=== PATIENT | female | born 1970 | race Caucasian/White ===

== ENCOUNTER 2019-07-10 10:47 | Observation (INO) ==
[2019-07-10 11:29] LABS: Basophils # (auto) 0.03 K/uL (0-0.2); Basophils % (auto) 0.6 %; Eosinophils # (auto) 0.15 K/uL (0-0.5); Eosinophils % (auto) 2.8 %; Hematocrit (blood only) 34.6 % (37-47); Hemoglobin 11.5 g/dL (12.0-16.0); Immature Granulocytes # (auto) 0.01 K/uL (0.00-0.02); Immature Granulocytes % (auto) 0.2 %; Lymphocytes # (auto) 2.17 K/uL (1.2-3.4); Lymphocytes % (auto) 41.2 %; Mean Corpuscular Hgb Conc 33.2 g/dL (32-36); Mean Corpuscular Volume 93.3 fL (80-100); Mean Platelet Volume 9.4 fL (7.4-10.4); Monocytes # (auto) 0.36 K/uL (0.11-0.59); Monocytes % (auto) 6.8 %; Neutrophils # (auto) 2.55 K/uL (1.4-6.5); Neutrophils % (auto) 48.4 %; Platelet Count 302 K/uL (130-400); RDW Standard Deviation 44.4 fL (36.4-46.3); Red Blood Count 3.71 M/uL (4.2-5.4); White Blood Count 5.27 K/uL (4.8-10.8)
[2019-07-10 11:31] LABS: Appearance Urine Clear (Clear); Bilirubin Urine Negative (Negative); Blood Urine Negative (Negative); Color Urine Yellow; Glucose Urine UA Negative (Negative); Ketones Urine Negative (Negative); Leukocyte Esterase Urine Negative (Negative); Nitrite Urine Negative (Negative); Protein Urine Negative (Negative); Specific Gravity Urine 1.008 (1.000-1.030); Urobilinogen Urine Negative (Negative)
--- NOTE | 2019-07-10 11:43 | XRay Report ---
XR chest 1V portable CLINICAL HISTORY: 49 years-old Female presenting with weakness. TECHNIQUE: Portable upright AP view of the chest was obtained. COMPARISON: 12/25/2018. FINDINGS: Cardiomediastinal silhouette normal. No focal opacity. No large effusion or pneumothorax. Osseous str uctures normal. Upper abdomen normal. IMPRESSION: 1. No acute cardiopulmonary disease. Electronically signed by: Erasmo Blevins M.D. 07/10/2019 11:42 AM
[2019-07-10 11:52] LABS: Albumin Level 3.7 gm/dl (3.4-5.0); BUN Creatinine Ratio 13.6 (10-20); Calcium 8.6 mg/dl (8.5-10.1); Creatinine Clr Calc Pharmacy 65.9 ml/min; Est GFR (African American) 74.4; Est GFR (Non-African American) 64.2; Potassium 3.6 mmol/L (3.5-5.1)
[2019-07-10 12:02] LABS: Albumin Globulin Ratio 1.1 (0.9-2); Bilirubin,Total 0.4 mg/dl (0.2-1); Globulin 3.4 gm/dl (2.5-4.0); Thyroid Stimulating Hormone 3.19 uIu/ml (0.300-4.500); Total Protein 7.1 gm/dl (6.4-8.2)
[2019-07-10] MEDS ORDERED: SUMAtriptan succinate 100 MG TAB PO STA (12:13)
--- NOTE | 2019-07-10 12:37 | Emergency Department Note ---
Entered by Domingo Rascon acting as a scribe for History of Present Illness General Chief complaint: Syncope Time Seen by Provider: 07/10/19 10:52 Source: patient History of Present Illness Provider complaint: Syncope Onset (ago): hour(s) (This morning) Location: head Pain Consistency: + other (Episodic) Associated symptoms: no chest pain and no shortness of breath The patient is a 49 year old female who presents to the Emergency Room after having a syncopal episode this morning while at her doctor's office. The patient reports that she was getting her blood pressure taken by the nurse when she felt tingling down her arm and syncopized. The patient does not remember the incident. The patient states she has taken all of her medications today but she has not eaten anything. Per the nurse, the patient's BSG upon EMS arrival was 54 but after IV Dextrose it elevated to 104. The patient adds that yesterday she was here after being sent for stroke like symptoms. While here the patient had an MRI done that was normal. The patient denies any new medications and states she has never had issues like this before. Home Medications Home Medications Medication Instructions Recorded Confirmed Type One-A-Day Women's 50 Plus 1 tab PO HS 12/25/18 07/10/19 History albuterol sulfate 2 puff INHALATION QID PRN 12/25/18 07/10/19 History bupropion HCl [Wellbutrin SR] 200 mg PO QAM 12/25/18 07/10/19 History cholecalciferol (vitamin D3) 1,000 unit PO HS 12/25/18 07/10/19 History [Vitamin D3] cyclobenzaprine 10 mg PO HS 12/25/18 07/10/19 History fluoxetine 10 mg PO QPM 12/25/18 07/10/19 History fluticasone propion-salmeterol 1 inh INHALATION QAM 12/25/18 07/10/19 History [Advair Diskus] hydrocodone-acetaminophen 1 tab PO DAILY PRN 12/25/18 07/10/19 History magnesium citrate 120 ml PO DAILY PRN 12/25/18 07/10/19 History polyethylene glycol 3350 17 g PO DAILY PRN 12/25/18 07/10/19 History potassium chloride 10 meq PO BID 12/25/18 07/10/19 History riboflavin (vitamin B2) 400 mg PO QAM 12/25/18 07/10/19 History sennosides [Senna Lax] 2 tab PO HS 12/25/18 07/10/19 History sumatriptan succinate [Imitrex] 100 mg PO DAILY PRN MDD 200 mg 12/25/18 07/10/19 History topiramate [Topamax] 150 mg PO QAM 12/25/18 07/10/19 History umeclidinium 1 inh INHALATION QAM 12/25/18 07/10/19 History zolpidem 10 mg PO HS 12/25/18 07/10/19 History Linzess 290 mcg PO DAILY 07/10/19 07/10/19 History famotidine 20 mg PO DAILY 07/10/19 07/10/19 History lorazepam 1 mg PO Q6H PRN 07/10/19 07/10/19 History omeprazole 40 mg PO DAILY 07/10/19 07/10/19 History topiramate [Topamax] 200 mg PO HS 07/10/19 07/10/19 History aspirin [Ecotrin Low Strength] 81 mg PO DAILY #30 tab 07/12/19 Rx gabapentin 300 mg PO TID #90 cap 07/12/19 Rx Allergies Allergy/AdvReac Type Severity Reaction Status Date / Time nicotine Allergy Mild NICOTINE Verified 07/10/19 11:33 PATCH-RASH AND EDEMA honey Allergy Unknown RAW Verified 07/10/19 11:33 HONEY-THROAT SWELLING, SOB meperidine Allergy Unknown THROAT Verified 07/10/19 11:33 SWELLED, SOB Past Med/Surg History Medical History COPD with asthma Generalized anxiety disorder (Chronic) IBS (irritable bowel syndrome) (Chronic) Lumbar stenosis with neurogenic claudication (09/02/14) Migraines (Chronic) Surgical History H/O laminectomy H/O oophorectomy History of cholecystectomy (Resolved) History of hysterectomy (Resolved) History of tubal ligation (Resolved) Family History (Updated 07/10/19 @ 15:35 by LEONIDES Alcala) Sister Stroke Social History (Updated 07/10/19 @ 15:36 by LEONIDES Alcala) Preferred Language: Tajik Communication Ability: Effective Water Conservation Specialist Required: No Beliefs That Will Affect Care: None Current Living Situation: Spouse Other Information That Helps Us Care for You: No Feels Safe at Home: Yes Safety Concerns: Feels Safe At This Time Smoking Status: Former smoker Do You Dip or Chew Tobacco: No ; Smoking End Date: 2009 ; Second Hand Exposure: No ; Tobacco Cessation Education Requested by Patient: No Hx Alcohol Use: Yes Alcohol type: wine Alcohol Intake Frequency: Rarely Hx Substance Use: No Review of Systems See HPI for pertinent positives & negatives. and A total of 10 systems reviewed and were otherwise negative Physical Exam Vital Signs Vital Signs - 24 hr 07/10/19 10:50 07/10/19 12:45 07/10/19 13:35 Temperature 36.5 C Temperature Source Oral Pulse Rate 56 L Pulse Rate [Apical] 64 64 Respiratory Rate 18 16 16 Blood Pressure 118/82 Blood Pressure [Right Arm] 102/75 117/79 Blood Pressure Mean 94 Blood Pressure Mean [Right Arm] 84 91 Blood Pressure Position Sitting Pulse Oximetry 94 Oxygen Delivery Method Room Air Sepsis Recent Fever Within 48 Hours No Sepsis New/Unexplained Change in Mental Status No Sepsis Action Taken by Nursing No Action Required GENERAL: Awake, alert, pale-appearing, in no distress HENT: Normocephalic, atraumatic. Oropharynx unremarkable. EYES: Normal conjunctiva. Sclera non-icteric. NECK: Supple. No nuchal rigidity. FROM. No masses. RESPIRATORY: Clear to auscultation. No wheezes. No rales. Normal respiratory effort. CARDIAC: Normal rate. Normal rhythm. No murmurs. No rubs. Extremities warm and well perfused. Pulses equal. No JVD. GI: Soft, non-distended. No tenderness to palpation. No rebound or guarding. No masses. RECTAL: Deferred. MUSCULOSKELETAL: Atraumatic. Chest examination reveals no tenderness. The back is symmetrical on inspection without obvious abnormality. There is no CVA tenderness to palpation. No joint edema. LOWER EXTREMITIES: Calves are equal size bilaterally and non-tender. No edema. No discoloration. NEURO: Normal sensorium. No sensory or motor deficits noted. Course Course 1055: Past medical records reviewed. The patient was evaluated in room C03, and a complete history and physical examination were performed. 1248: I reevaluated the patient and she is resting in bed. I had a long discussion with the patient and family about results and the treatment plan. The patient and family would both feel more comfortable staying in the hospital. 1251: I discussed the patient's case with Denise CHINCHILLA who is working under Dr. Gilbert Sparks. They are going to accept the patient for further evaluation. Consultations Consultation #1: I discussed the patient's case with Denise CHINCHILLA who is working under Dr. Gilbert Sparks. They are going to accept the patient for further evaluation. Time: 12:51 Administered Medications Discontinued Medications Aspirin (Ecotrin Ectab) 81 mg PO QAM PENDING SALE TO [facility] Stop: 08/10/19 16:14 Last Admin: 07/12/19 08:06 Dose: 81 mg Documented by: [id number] Admin: 07/11/19 18:19 Dose: 81 mg Documented by: [id number] Bupropion HCl ([facility]-Sr) [facility] Stop: 08/10/19 08:59 Last Admin: 07/12/19 08:05 Dose: 200 mg Documented by: [id number] Admin: 07/11/19 09:30 Dose: 200 mg Documented by: [id number] Cyclobenzaprine HCl (Flexeril) 10 mg PO HS JERMAINE Stop: 08/09/19 20:59 Last Admin: 07/11/19 20:56 Dose: 10 mg Documented by: [id number] Admin: 07/10/19 20:27 Dose: 10 mg Documented by: [id number] Famotidine (Pepcid) 20 mg PO DAILY JERMAINE Stop: 08/10/19 08:59 Last Admin: 07/12/19 08:03 Dose: Not Given Documented by: [id number] Admin: 07/11/19 09:29 Dose: 20 mg Documented by: [id number] Fluoxetine HCl (Prozac) 10 mg PO HS JERMAINE Stop: 08/09/19 20:59 Last Admin: 07/11/19 20:58 Dose: 10 mg Documented by: [id number] Admin: 07/10/19 21:41 Dose: 10 mg Documented by: [id number] Gabapentin (Neurontin) 300 mg PO HS JERMAINE Stop: 08/09/19 20:59 Last Admin: 07/11/19 20:58 Dose: 300 mg Documented by: [id number] Admin: 07/10/19 20:27 Dose: 300 mg Documented by: [id number] Gabapentin (Neurontin) 100 mg PO BID17 JERMAINE Stop: 08/09/19 16:59 Last Admin: 07/12/19 08:05 Dose: 100 mg Documented by: [id number] Admin: 07/11/19 18:20 Dose: 100 mg Documented by: [id number] Admin: 07/11/19 09:27 Dose: 100 mg Documented by: [id number] Admin: 07/10/19 17:35 Dose: 100 mg Documented by: [id number] Dextrose (D5w) 1,000 mls @ 80 mls/hr IV .[id number] JERMAINE Stop: 08/09/19 16:14 Last Infusion: 07/11/19 08:48 Dose: 0 mls/hr Documented by: [id number] Infusion: 07/10/19 18:16 Dose: 0 mls/hr Documented by: [id number] Admin: 07/10/19 16:46 Dose: 80 mls/hr Documented by: [id number] Dextrose/Sodium Chloride (D5w And Nss) 1,000 mls @ 80 mls/hr IV .[id number] JERMAINE Stop: 07/11/19 20:59 Last Infusion: 07/11/19 09:14 Dose: 0 mls/hr Documented by: [id number] Admin: 07/11/19 08:57 Dose: 80 mls/hr Documented by: [id number] Infusion: 07/11/19 08:45 Dose: 0 mls/hr Documented by: [id number] Admin: 07/10/19 20:27 Dose: 80 mls/hr Documented by: [id number] Ioversol (Optiray 320 125ml) 119 ml IV ONCE PRN PRN Reason: Interaction Checking Stop: 07/15/19 20:46 Last Admin: 07/11/19 20:47 Dose: 119 ml Documented by: [id number] Miscellaneous (Order Awaiting Action) 1 ea N/A QS JERMAINE Stop: 08/09/19 15:59 Last Admin: 07/12/19 10:02 Dose: Not Given Documented by: [id number] Admin: 07/12/19 07:18 Dose: Not Given Documented by: [id number] Admin: 07/11/19 23:11 Dose: Not Given Documented by: [id number] Admin: 07/11/19 17:13 Dose: Not Given Documented by: [id number] Admin: 07/11/19 08:49 Dose: Not Given Documented by: [id number] Admin: 07/11/19 01:14 Dose: Not Given Documented by: [id number] Admin: 07/10/19 17:06 Dose: Not Given Documented by: [id number] Miscellaneous (Order Awaiting Action) 1 ea N/A QS JERMAINE Stop: 08/09/19 15:59 Last Admin: 07/12/19 10:02 Dose: Not Given Documented by: [id number] Admin: 07/12/19 07:17 Dose: Not Given Documented by: [id number] Admin: 07/11/19 23:11 Dose: Not Given Documented by: [id number] Admin: 07/11/19 17:13 Dose: Not Given Documented by: [id number] Admin: 07/11/19 08:49 Dose: Not Given Documented by: [id number] Admin: 07/11/19 01:14 Dose: Not Given Documented by: [id number] Admin: 07/10/19 17:06 Dose: Not Given Documented by: [id number] Multivitamins (Multivitamin Tab) 1 tab PO HS JERMAINE Stop: 08/09/19 20:59 Last Admin: 07/11/19 21:00 Dose: 1 tab Documented by: [id number] Admin: 07/10/19 20:27 Dose: 1 tab Documented by: [id number] Pantoprazole Sodium (Protonix) 40 mg PO DAILY JERMAINE Stop: 08/10/19 08:59 Last Admin: 07/12/19 08:04 Dose: Not Given Documented by: [id number] Admin: 07/11/19 09:29 Dose: 40 mg Documented by: [id number] Potassium Chloride (Klor-Con M10) 10 meq PO BID JERMAINE Stop: 08/09/19 20:59 Last Admin: 07/12/19 08:05 Dose: 10 meq Documented by: [id number] Admin: 07/11/19 20:57 Dose: 10 meq Documented by: [id number] Admin: 07/11/19 09:29 Dose: Not Given Documented by: [id number] Admin: 07/10/19 20:27 Dose: 10 meq Documented by: [id number] Fluticasone/Salmeterol (Advair Diskus 250/50) 1 puffs INH QAM JERMAINE Stop: 08/10/19 08:59 Last Admin: 07/12/19 08:04 Dose: 1 puffs Documented by: [id number] Admin: 07/11/19 09:27 Dose: 1 puffs Documented by: [id number] Sennosides (Senokot) 17.2 mg PO HS JERMAINE Stop: 08/09/19 20:59 Last Admin: 07/11/19 20:59 Dose: 17.2 mg Documented by: [id number] Admin: 07/10/19 20:27 Dose: 17.2 mg Documented by: [id number] Sumatriptan Succinate (Imitrex) 100 mg PO NOW STA Stop: 07/10/19 12:14 Last Admin: 07/10/19 12:45 Dose: 100 mg Documented by: [id number] Sumatriptan Succinate (Imitrex) 100 mg PO DAILY PRN PRN Reason: Migraine Headache Stop: 08/10/19 10:18 Last Admin: 07/12/19 08:02 Dose: 100 mg Documented by: [id number] Admin: 07/11/19 10:55 Dose: 100 mg Documented by: [id number] Topiramate (Topamax) 150 mg PO QAM JERMAINE Stop: 08/10/19 08:59 Last Admin: 07/12/19 08:06 Dose: 150 mg Documented by: [id number] Admin: 07/11/19 09:30 Dose: 150 mg Documented by: [id number] Topiramate (Topamax) 200 mg PO HS JERMAINE Stop: 08/09/19 20:59 Last Admin: 07/11/19 20:59 Dose: 200 mg Documented by: [id number] Admin: 07/10/19 20:27 Dose: 200 mg Documented by: [id number] Vitamin D (Vitamin D3) 1,000 units PO HS JERMAINE Stop: 08/09/19 20:59 Last Admin: 07/11/19 21:00 Dose: 1,000 units Documented by: [id number] Admin: 07/10/19 20:27 Dose: 1,000 units Documented by: [id number] Zolpidem Tartrate (Ambien) 10 mg PO HS PRN PRN Reason: Sleep Stop: 08/09/19 21:04 Last Admin: 07/11/19 22:05 Dose: 10 mg Documented by: [id number] Admin: 07/10/19 21:44 Dose: 10 mg Documented by: [id number] Medical Decision Making Differential Diagnosis Differential Diagnosis includes but is not limited to dehydration, stroke, anemia, hypoglycemia, hyponatremia, hypernatremia, urinary tract infection, pneumonia, bronchitis, sepsis, gastroenteritis, additional abdominal pathology, metabolic abnormalities and infections. Medical Records Attestation: I reviewed the patient's medical records. Home Medications Current Medication List: was personally reviewed by me Laboratory Data Attestation: I reviewed the patient's lab results. Result diagrams: 07/11/19 05:19 07/11/19 05:19 Lab Results 07/10/19 07/10/19 07/10/19 Range/Units 11:17 11:17 11:17 WBC 5.27 (4.8-10.8) K/uL RBC 3.71 L (4.2-5.4) M/uL Hgb 11.5 L (12.0-16.0) g/dL Hct 34.6 L (37-47) % MCV 93.3 (80-100) fL MCH 31.0 (25-34) pg MCHC 33.2 (32-36) g/dL RDW Std Deviation 44.4 (36.4-46.3) fL RDW Coeff of Audie 13.0 (11.5-14.5) % Plt Count 302 (130-400) K/uL MPV 9.4 (7.4-10.4) fL Immature Gran % (Auto) 0.2 % Neut % (Auto) 48.4 % Lymph % (Auto) 41.2 % [place] % (Auto) 6.8 % Eos % (Auto) 2.8 % Baso % (Auto) 0.6 % Immature Gran # (Auto) 0.01 (0.00-0.02) K/uL Neut # (Auto) 2.55 (1.4-6.5) K/uL Lymph # (Auto) 2.17 (1.2-3.4) K/uL [place] # (Auto) 0.36 (0.11-0.59) K/uL Eos # (Auto) 0.15 (0-0.5) K/uL Baso # (Auto) 0.03 (0-0.2) K/uL Sodium 142 (136-145) mmol/L Potassium 3.6 (3.5-5.1) mmol/L Chloride 116 H (98-107) mmol/L Carbon Dioxide 22 (21-32) mmol/L Anion Gap 4.0 (3-11) BUN 14 (7-18) mg/dl Creatinine 1.03 (0.6-1.2) mg/dl Est Cr Clr Drug Dosing 65.9 ml/min Est GFR ( Amer) 74.4 Est GFR (Non-Af Amer) 64.2 BUN/Creatinine Ratio 13.6 (10-20) Glucose 80 (70-99) mg/dl Calcium 8.6 (8.5-10.1) mg/dl Total Bilirubin 0.4 (0.2-1) mg/dl AST 11 L (15-37) U/L ALT 22 (12-78) U/L Alkaline Phosphatase 89 (45-117) U/L Total Protein 7.1 (6.4-8.2) gm/dl Albumin 3.7 (3.4-5.0) gm/dl Globulin 3.4 (2.5-4.0) gm/dl Albumin/Globulin Ratio 1.1 (0.9-2) TSH 3.190 (0.300-4.500) uIu/ml Urine Color Yellow Urine Appearance Clear (Clear) Urine pH 8.0 H (4.5-7.5) Ur Specific [place] 1.008 (1.000-1.030) Urine Protein Negative (Negative) Urine Glucose (UA) Negative (Negative) Urine Ketones Negative (Negative) Urine Blood Negative (Negative) Urine Nitrite Negative (Negative) Urine Bilirubin Negative (Negative) Urine Urobilinogen Negative (Negative) Ur Leukocyte Esterase Negative (Negative) Lyme Disease IgG Ab (Negative) Lyme Disease IgM Ab (Negative) 07/10/19 Range/Units 11:17 WBC (4.8-10.8) K/uL RBC (4.2-5.4) M/uL Hgb (12.0-16.0) g/dL Hct (37-47) % MCV (80-100) fL MCH (25-34) pg MCHC (32-36) g/dL RDW Std Deviation (36.4-46.3) fL RDW Coeff of Audie (11.5-14.5) % Plt Count (130-400) K/uL MPV (7.4-10.4) fL Immature Gran % (Auto) % Neut % (Auto) % Lymph % (Auto) % [place] % (Auto) % Eos % (Auto) % Baso % (Auto) % Immature Gran # (Auto) (0.00-0.02) K/uL Neut # (Auto) (1.4-6.5) K/uL Lymph # (Auto) (1.2-3.4) K/uL [place] # (Auto) (0.11-0.59) K/uL Eos # (Auto) (0-0.5) K/uL Baso # (Auto) (0-0.2) K/uL Sodium (136-145) mmol/L Potassium (3.5-5.1) mmol/L Chloride (98-107) mmol/L Carbon Dioxide (21-32) mmol/L Anion Gap (3-11) BUN (7-18) mg/dl Creatinine (0.6-1.2) mg/dl Est Cr Clr Drug Dosing ml/min Est GFR ( Amer) Est GFR (Non-Af Amer) BUN/Creatinine Ratio (10-20) Glucose (70-99) mg/dl Calcium (8.5-10.1) mg/dl Total Bilirubin (0.2-1) mg/dl AST (15-37) U/L ALT (12-78) U/L Alkaline Phosphatase (45-117) U/L Total Protein (6.4-8.2) gm/dl Albumin (3.4-5.0) gm/dl Globulin (2.5-4.0) gm/dl Albumin/Globulin Ratio (0.9-2) TSH (0.300-4.500) uIu/ml Urine Color Urine Appearance (Clear) Urine pH (4.5-7.5) Ur Specific [place] (1.000-1.030) Urine Protein (Negative) Urine Glucose (UA) (Negative) Urine Ketones (Negative) Urine Blood (Negative) Urine Nitrite (Negative) Urine Bilirubin (Negative) Urine Urobilinogen (Negative) Ur Leukocyte Esterase (Negative) Lyme Disease IgG Ab Negative (Negative) Lyme Disease IgM Ab Negative (Negative) Imaging Data Radiologist's Impression: Radiology results as stated below per my review and the radiologist's interpretation: XR chest 1V portable CLINICAL HISTORY: 49 years-old Female presenting with weakness. TECHNIQUE: Portable upright AP view of the chest was obtained. COMPARISON: 12/25/2018. FINDINGS: Cardiomediastinal silhouette normal. No focal opacity. No large effusion or pneumothorax. Osseous structures normal. Upper abdomen normal. IMPRESSION: 1. No acute cardiopulmonary disease. Electronically signed by: Erasmo Blevins M.D. 07/10/2019 11:42 AM ECG Data Attestation: I personally reviewed and interpreted this ECG as follows: Indication: + syncope Rate (beats per minute): 59 Rhythm: + sinus bradycardia ECG Intervals/blocks: + Normal QRS and + Normal QT ECG Mobile: + Normal ECG Findings: + Other (Normal MI, QTC of 439) Blood Pressure Blood Pressure Findings: Normal blood pressure MDM Narrative This is a 49-year-old female who presents emergency department over concerns that she had a syncopal episode. Patient has had 2 episodes within 24 hours. She recently had an MRI done here to rule out a stroke. I suspect the patient is having some sort of medication reaction and went through the patient's medications line by line with the patient and family. Patient and family do not feel that this is a medication reaction. They wish to be admitted to the hosp ital. I feel that this is reasonable as she has been here twice in 48 hours with similar complaints. She was given food here in the emergency department. She does not have an elevation in her white blood cell count. She is slightly anemic with a red blood cell count of 10. Impression & Plan Syncope, Hypoglycemia Discharge Plan Visit Data *Final* Discharge Date/Time: 07/10/19 14:45 Chief Complaint: Syncope ED Provider: Dmitry Weiss Discharge Problem: Syncope, Hypoglycemia Patient Disposition: Admitted As Inpatient Condition: Good Discharge Instructions Interventions: ED Discharge Assessment Last Done: 07/10/19 14:45 Discharge Problem: Syncope Qualifiers: Syncope type: unspecified Qualified Code(s): R55 - Syncope and collapse The scribe's documentation has been prepared under my direction and personally reviewed by me in its entirety. I confirm that the note above accurately reflects all work, treatment, procedures, and medical decision making performed by me.
[2019-07-10 13:35] LABS: Lyme Ab IgG w/WB Rflx Negative (Negative); Lyme Ab IgM w/WB Rflx Negative (Negative)
[2019-07-10] MEDS ORDERED: POLYETHYLENE (MIRALAX) 17 GM PACK PO PRN (15:09)
[2019-07-10] MEDS ORDERED: ACETAMINOPHEN 325 MG TAB PO PRN (15:09)
[2019-07-10] MEDS ORDERED: HYDROCODONE/ACETAMOPHEN 5/325MG TAB PO PRN (15:21)
[2019-07-10] MEDS ORDERED: LORazepam 1 MG TAB PO PRN (15:22)
--- NOTE | 2019-07-10 15:30 | History & Physical Report ---
Date of Service July 10, 2019 Assessment & Plan (1) Syncope: (2) Hypoglycemia: -Admit to telemetry -Patient presenting from outpatient GI clinic for evaluation after syncopal event, patient was also found to be hypoglycemic with glucose 55 -improved after oral dextrose -In the ED, labs are unremarkable and EKG does not show any acute ST changes -Orthostatic blood pressures negative -Continue cycle cardiac enzymes, check resting echo -Hypoglycemia may be contributing; glucose 80 on ED labs and dropped to 63 upon arrival to the floor (patient did eat lunch) -Start D5W at 80 cc/hour -Check fasting insulin along with a.m. labs; C-peptide and proinsulin levels also ordered -Patient also on fluoxetine however not a new medication, this may be contributing to hyperglycemia as well (3) COPD with asthma: -No signs of acute exacerbation, continue home inhalers (4) Generalized anxiety disorder: (5) Migraines: -Stable, continue home medications -May need to discontinue fluoxetine secondary to hypoglycemia (6) DVT prophylaxis: -SCDs, ambulate History of Present Illness Chief Complaint: Syncope Primary Care Provider: Demarcus Tovar DO 49-year-old female who presents the ED for evaluation after syncopal event. Patient was seen in the ER yesterday for reports of slurred speech. She had head CT and brain MRI that were negative for acute findings. Patient symptoms resolved and she was feeling improved and was discharged home. Today, patient was at the outpatient GI office for a routine appointment. She reports that her side just finished taking her blood pressure and was removing the blood pressure cuff from her left arm when she developed left arm pain radiating into the left side of her neck. She then started to feel lightheaded and dizzy in the next thing she knew she was on the ground. Per report, blood sugar was checked and found to be 55. Patient was given dextrose with improvement in blood sugar. No reported seizure-like activity. Patient denies any preceding chest pain or shortness of breath. No other recent illnesses, fevers, chills. She denies abdominal pain, nausea, vomiting, diarrhea. No urinary symptoms. In the ED, EKG does not show any acute ST changes and labs are unremarkable. Patient has remained hemodynamically stable. Allergies Allergy/AdvReac Type Severity Reaction Status Date / Time nicotine Allergy Mild NICOTINE Verified 07/10/19 11:33 PATCH-RASH AND EDEMA honey Allergy Unknown RAW Verified 07/10/19 11:33 HONEY-THROAT SWELLING, SOB meperidine Allergy Unknown THROAT Verified 07/10/19 11:33 SWELLED, SOB Home Medications Home Medications Medication Instructions Recorded Confirmed Type albuterol sulfate 2 puff INHALATION QID PRN 12/25/18 07/10/19 History bupropion HCl [Wellbutrin SR] 200 mg PO QAM 12/25/18 07/10/19 History cholecalciferol (vitamin D3) 1,000 unit PO HS 12/25/18 07/10/19 History [Vitamin D3] cyclobenzaprine 10 mg PO HS 12/25/18 07/10/19 History fluoxetine 10 mg PO QAM 12/25/18 07/10/19 History fluticasone propion-salmeterol 1 inh INHALATION QAM 12/25/18 07/10/19 History [Advair Diskus] hydrocodone-acetaminophen 1 tab PO DAILY PRN 12/25/18 07/10/19 History magnesium citrate 120 ml PO DAILY PRN 12/25/18 07/10/19 History mv,Ca,min-folic acid-vit K1 1 tab PO HS 12/25/18 07/10/19 History [One-A-Day Women's 50 Plus] polyethylene glycol 3350 17 g PO DAILY PRN 12/25/18 07/10/19 History potassium chloride 10 meq PO BID 12/25/18 07/10/19 History riboflavin (vitamin B2) 400 mg PO QAM 12/25/18 07/10/19 History sennosides [Senna Lax] 2 tab PO HS 12/25/18 07/10/19 History sumatriptan succinate [Imitrex] 100 mg PO DAILY PRN MDD 200 mg 12/25/18 07/10/19 History topiramate [Topamax] 150 mg PO QAM 12/25/18 07/10/19 History umeclidinium 1 inh INHALATION QAM 12/25/18 07/10/19 History zolpidem 10 mg PO HS 12/25/18 07/10/19 History gabapentin 100 mg PO BIDM 07/09/19 07/10/19 History gabapentin 300 mg PO HS 07/09/19 07/10/19 History famotidine 20 mg PO DAILY 07/10/19 07/10/19 History linaclotide [Linzess] 290 mcg PO DAILY 07/10/19 07/10/19 History lorazepam 1 mg PO Q6H PRN 07/10/19 07/10/19 History omeprazole 40 mg PO DAILY 07/10/19 07/10/19 History topiramate [Topamax] 200 mg PO HS 07/10/19 07/10/19 History Past Med/Surg History Medical History COPD with asthma Generalized anxiety disorder (Chronic) IBS (irritable bowel syndrome) (Chronic) Lumbar stenosis with neurogenic claudication (09/02/14) Migraines (Chronic) Surgical History H/O laminectomy H/O oophorectomy History of cholecystectomy (Resolved) History of hysterectomy (Resolved) History of tubal ligation (Resolved) Family History (Updated 07/10/19 @ 15:35 by LEONIDES Alcala) Sister Stroke Social History (Updated 07/10/19 @ 15:36 by LEONIDES Alcala) Preferred Language: B[place] Communication Ability: Effective 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 Required: No Beliefs That Will Affect Care: None Current Living Situation: Spouse Other Information That Helps Us Care for You: No Feels Safe at Home: Yes Safety Concerns: Feels Safe At This Time Smoking Status: Former smoker Do You Dip or Chew Tobacco: No ; Smoking End Date: 2009 ; Second Hand Exposure: No ; Tobacco Cessation Education Requested by Patient: No Hx Alcohol Use: Yes Alcohol type: wine Alcohol Intake Frequency: Rarely Hx Substance Use: No Review of Systems Review of Systems: ROS per HPI, all other systems reviewed and negative Physical Exam Constitutional: WD/WN, vitals as above Eyes: PERRL, conjunctivae normal, anicteric sclerae ENMT: external ear and nose normal, oropharynx normal Respiratory: normal respiratory effort, lungs clear to auscultation Cardiovascular: Rate/Rhythm: regular rate and regular rhythm Vessels: normal peripheral pulses Extremities: no edema Gastrointestinal (Abdomen): normal bowel sounds, soft, nontender, no hepatosplenomegaly Musculoskeletal: no cyanosis or clubbing, extremities motor strength 5/5 Skin: no rashes, warm and dry Neurologic: PERRL, EOMI, accommodation nl, no face palsy, no dysarthria Psychiatric: A+Ox3, euthymic affect Results & Data Vital Signs (Past 12 Hours) Vital Signs Temp Pulse Pulse Pulse Resp BP BP 07/10/19 14:53 36.6 C 55 L 18 106/65 07/10/19 13:35 64 16 07/10/19 12:45 64 16 07/10/19 10:50 36.5 C 56 L 18 118/82 BP Pulse Ox 07/10/19 14:53 100 07/10/19 13:35 117/79 07/10/19 12:45 102/75 07/10/19 10:50 94 Laboratory Results Short CBC 07/10/19 Range/Units 11:17 WBC 5.27 (4.8-10.8) K/uL Hgb 11.5 L (12.0-16.0) g/dL Hct 34.6 L (37-47) % Plt Count 302 (130-400) K/uL BMP 07/10/19 11:17 Sodium 142 Potassium 3.6 Chloride 116 H Carbon Dioxide 22 BUN 14 Creatinine 1.03 Glucose 80 Calcium 8.6 Cardiac Enzymes 07/10/19 Range/Units 14:20 Troponin I < 0.015 (0-0.045) ng/ml Liver Function 07/10/19 Range/Units 11:17 Total Bilirubin 0.4 (0.2-1) mg/dl AST 11 L (15-37) U/L ALT 22 (12-78) U/L Alkaline Phosphatase 89 (45-117) U/L Albumin 3.7 (3.4-5.0) gm/dl Urine 07/10/19 Range/Units 11:17 Urine Color Yellow Urine Appearance Clear (Clear) Urine pH 8.0 H (4.5-7.5) Ur Specific Hustler 1.008 (1.000-1.030) Urine Protein Negative (Negative) Urine Glucose (UA) Negative (Negative) Diagnostic Findings CXR IMPRESSION: 1. No acute cardiopulmonary disease. Code Status & VTE Plan VTE Prophylaxis Plan VTE Prophylaxis will be ordered: Yes Supervising Physician Co-Signing Physician Notes Attending addendum: The patient was seen and examined in in the emergency room She was brought in with a syncopal episode at doctor's office After taking her blood pressure in the office to complain to have left arm pain and following that she can ask She was noted to have a blood sugar of 54 at the clinic On examination No apparent distress at rest Hemodynamically stable Chest-clear to auscultate bilaterally Heart-S1-S2, regular Abdomen-benign, no organomegaly, bowel sounds present Extremities-negative for any edema Admission labs, EKG and imaging studies reviewed Admitted with syncopal episode with incidental finding of low blood sugar of 54 Syncope could be due to vasovagal type induced by pain from use of blood pressure cuff and hypoglycemia was noted incidentally Noted to have hypoglycemia as an inpatient Work-up in progress-case discussed with the copy coordinator Dr. Plata Agree with assessment and plan as outlined above by Aisha Hunt
[2019-07-10] MEDS ORDERED: DEXTROSE 5% 1,000 ML IV SCH (16:15)
[2019-07-10] MEDS: LINZESS - ORDER AWAITING ACTION SCH (17:06)
[2019-07-10] MEDS: [UNRECOGNIZED DRUG - REMARK] SCH (17:06)
[2019-07-10] MEDS: GABAPENTIN 100 MG CAP PO SCH (17:35)
[2019-07-10] MEDS: MULTIVITAMIN TAB PO SCH (20:27)
[2019-07-10] MEDS: D5W AND NSS 1,000 ML IV SCH (20:27)
[2019-07-10] MEDS: CYCLOBENZAPRINE HCL 10 MG TAB PO SCH (20:27)
[2019-07-10] MEDS: SENNA 8.6 MG TAB PO SCH (20:27)
[2019-07-10] MEDS: GABAPENTIN 300 MG CAP PO SCH (20:27)
[2019-07-10] MEDS: TOPIRAMATE 100 MG TAB PO SCH (20:27)
[2019-07-10] MEDS: POTASSIUM CHLORIDE 10 MEQ TABCR PO SCH (20:27)
[2019-07-10] MEDS: CHOLECALCIFEROL 1,000 UNITS TAB PO SCH (20:27)
[2019-07-10] MEDS: FLUOXETINE HCL 10 MG CAP PO SCH (21:41)
[2019-07-10] MEDS: ZOLPIDEM TARTRATE 10 MG TAB PO PRN (21:44)
[2019-07-11] MEDS: LINZESS - ORDER AWAITING ACTION SCH ×4 (01:14→23:11)
[2019-07-11] MEDS: [UNRECOGNIZED DRUG - REMARK] SCH ×4 (01:14→23:11)
[2019-07-11 05:45] LABS: Hematocrit (blood only) 31.1 % (37-47); Hemoglobin 10.4 g/dL (12.0-16.0); Mean Corpuscular Hgb Conc 33.4 g/dL (32-36); Mean Corpuscular Volume 92.8 fL (80-100); Mean Platelet Volume 9.2 fL (7.4-10.4); Platelet Count 274 K/uL (130-400); RDW Standard Deviation 44.2 fL (36.4-46.3); Red Blood Count 3.35 M/uL (4.2-5.4)
[2019-07-11 06:17] LABS: BUN Creatinine Ratio 12.9 (10-20); Calcium 8.7 mg/dl (8.5-10.1); Creatinine Clr Calc Pharmacy 57.3 ml/min; Est GFR (African American) 70.3; Est GFR (Non-African American) 60.7
[2019-07-11] MEDS: D5W AND NSS 1,000 ML IV SCH (08:57)
[2019-07-11] MEDS ORDERED: FLUOXETINE HCL 10 MG CAP PO SCH (09:00)
[2019-07-11] MEDS ORDERED: NON-FORMULARY MEDICATION (Riboflavin (Vitamin B2) 400 MG) PO SCH (09:00)
[2019-07-11] MEDS: FLUTICASONE/SALMETEROL 250/50 (ADVAIR) 14 PUFF/1 INHALER INH SCH (09:27)
[2019-07-11] MEDS: GABAPENTIN 100 MG CAP PO SCH ×2 (09:27→18:20)
[2019-07-11] MEDS: PANTOprazole 40 MG TAB PO SCH (09:29)
[2019-07-11] MEDS: POTASSIUM CHLORIDE 10 MEQ TABCR PO SCH ×2 (09:29→20:57)
[2019-07-11] MEDS: FAMOTIDINE 20 MG TAB PO SCH (09:29)
[2019-07-11] MEDS: BuPROPion SR 100 MG TABCR PO SCH (09:30)
[2019-07-11] MEDS: TOPIRAMATE 50 MG TAB PO SCH (09:30)
[2019-07-11] MEDS: SUMAtriptan succinate 100 MG TAB PO PRN (10:55)
--- NOTE | 2019-07-11 14:33 | Neurology Consultation ---
Date of Consultation July 11, 2019 Assessment & Plan (1) Syncope: 1. syncope and episode of dysarthria and dizziness- CTA head and neck ordered for further evaluation of vascular system- possible TIA 2. if no contra indication would start aspirin 81 mg and plavix 75 mg possible TIA-ordered 3. PT/OT for discharge recommendation- does not appear to be any 4. TTE- no ASD 5. EEG - normal 6. optimize HTN, HLD, DM LDL <70 7. MRI no evidence of stroke - may need repeated for second episode 8. outpatient [facility] for further evaluation of possible arrhythmia or ursula cardia which was noted in past 9. hypercoag panel ordered Supervising Physician Co-Signing Physician Notes I have seen and discussed above patient with Dr Emeli Rodriguez, neurology patient seen and examined. Patient is known to me with a history of common migraine for which she is on Topamax. 2 days ago she was in her state of usual health with a mild left-sided posterior occipital throbbing headache she developed tingling of her tongue bilaterally. She [facility] the [facility] and while on the phone by report had some dysarthria. She dizziness but not vertigo. No scintillating visual phenomenon. There was perhaps some drooling out the left side of her mouth. Legs negative tingled as well symptoms lasted 10 minutes in the office that the headache was not significantly worse. She was seen in our emergency room had an MRI of the brain which I reviewed which shows mild chronic vascular changes versus migrainous changes. Patient was discharged. On the day of admission she was getting her blood pressure checked she developed severe pain in her left arm and then by report had a brief loss of consciousness. By report there was no seizure activity she was not incontinent was not injured and was not confused thereafter. I reviewed her labs MRI vitals noncontributory. Her exam today reveals normal speech and language appropriate affect normal visual johnson facial symmetry symmetric strength. No calf swelling or tenderness. Impression query migrainous accompaniment however patient denies that headache was impressive.having been said it was a throbbing headache. She has never had prior neurologic symptoms accompanying her headache. Differential includes transient ischemic attack simple partial seizure or partial complex seizure. Given their atypical nature and new onset I would work this up as a vascular event and presently use aspirin and Plavix. Recommend CTA of the head and neck echo with a bubble study if a PFO venous Doppler of the lower extremities and hypercoagulable state work-up. Recommend checking lipid profile. Will discuss with the patient in some more detail tomorrow whether or not we should increase the intensity of her migraine prophylaxis. The episode today sounds more like a syncopal episode doubt seizure. We will follow with you. Emeli Rodriguez MD History of Present Illness Reason for Consultation: dysarthria Requesting Physician: Ángel Mendez MD Attending Physician: Ángel Mendez MD History of Present Illness Ana is a 49 year old female with PMH migraine, syncope, COPD with asthma, AC, IBS, hypoglycemia, who presented to [facility] 07/09/2019 for slurred speech after a episode of body numbness. She was evaluated with a head CT and MRI which were normal and discharged to home. She was seen on 07/10/2019 in the GI office, a blood pressure was being taking and she had a pain in her arm radiating up to her neck and then she became light headed and dizzy and she had a syncopal episode and was lower to the floor. She states she was a little confused but she knew where she was. Her blood sugar was checked which was 55 and given dextrose. there was no seizure like activity. She states she is back to baseline. denies CP, SOB, abdominal pain, one sided weakness, numbness tingling, N, V, swallowing issues, vision changes, new bowel or bladder issues. She denies medication changes, EtOH use or other drugs, quit smoking 7 years ago, +caffeine use 2-4 cups per day. Allergies Allergy/AdvReac Type Severity Reaction Status Date / Time nicotine Allergy Mild NICOTINE Verified 07/10/19 11:33 PATCH-RASH AND EDEMA honey Allergy Unknown RAW Verified 07/10/19 11:33 HONEY-THROAT SWELLING, SOB meperidine Allergy Unknown THROAT Verified 07/10/19 11:33 SWELLED, SOB Home Medications Home Medications Medication Instructions Recorded Confirmed Type albuterol sulfate 2 puff INHALATION QID PRN 12/25/18 07/10/19 History bupropion HCl [Wellbutrin SR] 200 mg PO QAM 12/25/18 07/10/19 History cholecalciferol (vitamin D3) 1,000 unit PO HS 12/25/18 07/10/19 History [Vitamin D3] cyclobenzaprine 10 mg PO HS 12/25/18 07/10/19 History fluoxetine 10 mg PO QPM 12/25/18 07/10/19 History fluticasone propion-salmeterol 1 inh INHALATION QAM 12/25/18 07/10/19 History [Advair Diskus] hydrocodone-acetaminophen 1 tab PO DAILY PRN 12/25/18 07/10/19 History magnesium citrate 120 ml PO DAILY PRN 12/25/18 07/10/19 History mv,Ca,min-folic acid-vit K1 1 tab PO HS 12/25/18 07/10/19 History [One-A-Day Women's 50 Plus] polyethylene glycol 3350 17 g PO DAILY PRN 12/25/18 07/10/19 History potassium chloride 10 meq PO BID 12/25/18 07/10/19 History riboflavin (vitamin B2) 400 mg PO QAM 12/25/18 07/10/19 History sennosides [Senna Lax] 2 tab PO HS 12/25/18 07/10/19 History sumatriptan succinate [Imitrex] 100 mg PO DAILY PRN MDD 200 mg 12/25/18 07/10/19 History topiramate [Topamax] 150 mg PO QAM 12/25/18 07/10/19 History umeclidinium 1 inh INHALATION QAM 12/25/18 07/10/19 History zolpidem 10 mg PO HS 12/25/18 07/10/19 History gabapentin 100 mg PO BIDM 07/09/19 07/10/19 History gabapentin 300 mg PO HS 07/09/19 07/10/19 History famotidine 20 mg PO DAILY 07/10/19 07/10/19 History linaclotide [Linzess] 290 mcg PO DAILY 07/10/19 07/10/19 History lorazepam 1 mg PO Q6H PRN 07/10/19 07/10/19 History omeprazole 40 mg PO DAILY 07/10/19 07/10/19 History topiramate [Topamax] 200 mg PO HS 07/10/19 07/10/19 History Patient History Medical History COPD with asthma Generalized anxiety disorder (Chronic) IBS (irritable bowel syndrome) (Chronic) Lumbar stenosis with neurogenic claudication (09/02/14) Migraines (Chronic) Surgical History H/O laminectomy H/O oophorectomy History of cholecystectomy (Resolved) History of hysterectomy (Resolved) History of tubal ligation (Resolved) Family History (Updated 07/10/19 @ 15:35 by LEONIDES Alcala) Sister Stroke Social History (Updated 07/10/19 @ 15:36 by LEONIDES Alcala) Preferred Language: Tajik Communication Ability: Effective 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 Beliefs That Will Affect Care: None Current Living Situation: Spouse Other Information That Helps Us Care for You: No Feels Safe at Home: Yes Safety Concerns: Feels Safe At This Time Smoking Status: Former smoker Do You Dip or Chew Tobacco: No ; Smoking End Date: 2009 ; Second Hand Exposure: No ; Tobacco Cessation Education Requested by Patient: No Hx Alcohol Use: Yes Alcohol type: wine Alcohol Intake Frequency: Rarely Hx Substance Use: No Physical Exam Physical Exam: Physical Exam: Constitutional: appearance nourished, healthy and normal Ears, Nose, Mouth and Throat: mucous membranes moist, no injection and skin normal, eyes normal Cardiovascular: normal S-1 and S-2 and regular rate and rhythm Respiratory: course breath sounds Musculoskeletal: no peripheral edema and good distal pulses Skin: no stigmata of neurocutaneous disease noted and normal and intact Eyes: extraocular muscles intact (EOMI) and pupils equal, round and reactive to light (PERRL) NEUROLOGIC EXAMINATION: Mental status: Alert and interactive Oriented to full date and location Oriented to person Speech fluent with no evidence of aphasia Cranial Nerves smile eye brow raise symmetric Reflexes: Deep tendon reflexes were symmetrical and graded 2/5. Sensory: intact to light touch, vibration, cool touch GT proprioception intact Coordination: finger to nose no bipass, slight reaching tremor R>L Gait/Stance: Posture sitting up in bed Motor: Negative for pronator drift of out stretched arms with eyes closed. 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0) g/dL Hct 31.1 L (37-47) % Chloride 116 H (98-107) mmol/L POC Glucose 107 H (70-99) Diagnostic Findings MRI brain- No acute intracranial abnormality. Unchanged mild chronic small vessel change. Stable arachnoid cyst described previously. TTE- EF 65-70% no ASD
--- NOTE | 2019-07-11 15:02 | Electroencephalogram ---
EEG Procedure Note Date of Service July 11, 2019 Start / End Times Start Time: 1230 End Time: 1250 Referring Physician Emeli Cardozo PA-C History Possible seizure Home Medication List Home Medications Medication Instructions Recorded Confirmed Type albuterol sulfate 2 puff INHALATION QID PRN 12/25/18 07/10/19 History bupropion HCl [Wellbutrin SR] 200 mg PO QAM 12/25/18 07/10/19 History cholecalciferol (vitamin D3) 1,000 unit PO HS 12/25/18 07/10/19 History [Vitamin D3] cyclobenzaprine 10 mg PO HS 12/25/18 07/10/19 History fluoxetine 10 mg PO QPM 12/25/18 07/10/19 History fluticasone propion-salmeterol 1 inh INHALATION QAM 12/25/18 07/10/19 History [Advair Diskus] hydrocodone-acetaminophen 1 tab PO DAILY PRN 12/25/18 07/10/19 History magnesium citrate 120 ml PO DAILY PRN 12/25/18 07/10/19 History mv,Ca,min-folic acid-vit K1 1 tab PO HS 12/25/18 07/10/19 History [One-A-Day Women's 50 Plus] polyethylene glycol 3350 17 g PO DAILY PRN 12/25/18 07/10/19 History potassium chloride 10 meq PO BID 12/25/18 07/10/19 History riboflavin (vitamin B2) 400 mg PO QAM 12/25/18 07/10/19 History sennosides [Senna Lax] 2 tab PO HS 12/25/18 07/10/19 History sumatriptan succinate [Imitrex] 100 mg PO DAILY PRN MDD 200 mg 12/25/18 07/10/19 History topiramate [Topamax] 150 mg PO QAM 12/25/18 07/10/19 History umeclidinium 1 inh INHALATION QAM 12/25/18 07/10/19 History zolpidem 10 mg PO HS 12/25/18 07/10/19 History gabapentin 100 mg PO BIDM 07/09/19 07/10/19 History gabapentin 300 mg PO HS 07/09/19 07/10/19 History famotidine 20 mg PO DAILY 07/10/19 07/10/19 History linaclotide [Linzess] 290 mcg PO DAILY 07/10/19 07/10/19 History lorazepam 1 mg PO Q6H PRN 07/10/19 07/10/19 History omeprazole 40 mg PO DAILY 07/10/19 07/10/19 History topiramate [Topamax] 200 mg PO HS 07/10/19 07/10/19 History Inpatient Medication List Bupropion HCl (Wellbutrin-Sr) 200 mg PO QAM [facility] Stop: 08/10/19 08:59 Last Admin: 07/11/19 09:30 Dose: 200 mg Documented by: [id number] Cyclobenzaprine HCl (Flexeril) 10 mg PO HS [facility] Stop: 08/09/19 20:59 Last Admin: 07/10/19 20:27 Dose: 10 mg Documented by: [id number] Famotidine (Pepcid) 20 mg PO DAILY [facility] Stop: 08/10/19 08:59 Last Admin: 07/11/19 09:29 Dose: 20 mg Documented by: [id number] Fluoxetine HCl (Prozac) 10 mg PO HS [facility] Stop: 08/09/19 20:59 Last Admin: 07/10/19 21:41 Dose: 10 mg Documented by: [id number] Gabapentin (Neurontin) 300 mg PO HS [facility] Stop: 08/09/19 20:59 Last Admin: 07/10/19 20:27 Dose: 300 mg Documented by: [id number] Gabapentin (Neurontin) 100 mg PO BID17 [facility] Stop: 08/09/19 16:59 Last Admin: 07/11/19 09:27 Dose: 100 mg Documented by: [id number] Admin: 07/10/19 17:35 Dose: 100 mg Documented by: [id number] Miscellaneous (Order Awaiting Action) 1 ea N/A QS [facility] Stop: 08/09/19 15:59 Last Admin: 07/11/19 08:49 Dose: Not Given Documented by: [id number] Admin: 07/11/19 01:14 Dose: Not Given Documented by: [id number] Admin: 07/10/19 17:06 Dose: Not Given Documented by: [id number] Miscellaneous (Order Awaiting Action) 1 ea N/A QS [facility] Stop: 08/09/19 15:59 Last Admin: 07/11/19 08:49 Dose: Not Given Documented by: [id number] Admin: 07/11/19 01:14 Dose: Not Given Documented by: [id number] Admin: 07/10/19 17:06 Dose: Not Given Documented by: [id number] Multivitamins (Multivitamin Tab) 1 tab PO HS [facility] Stop: 08/09/19 20:59 Last Admin: 07/10/19 20:27 Dose: 1 tab Documented by: [id number] Pantoprazole Sodium (Protonix) 40 mg PO DAILY [facility] Stop: 08/10/19 08:59 Last Admin: 07/11/19 09:29 Dose: 40 mg Documented by: [id number] Potassium Chloride (Klor-Con M10) 10 meq PO BID [facility] Stop: 08/09/19 20:59 Last Admin: 07/11/19 09:29 Dose: Not Given Documented by: [id number] Admin: 07/10/19 20:27 Dose: 10 meq Documented by: [id number] Fluticasone/Salmeterol (Advair Diskus 250/50) 1 puffs INH QAM [facility] Stop: 08/10/19 08:59 Last Admin: 07/11/19 09:27 Dose: 1 puffs Documented by: [id number] Sennosides (Senokot) 17.2 mg PO HS [facility] Stop: 08/09/19 20:59 Last Admin: 07/10/19 20:27 Dose: 17.2 mg Documented by: [id number] Sumatriptan Succinate (Imitrex) 100 mg PO DAILY PRN PRN Reason: Migraine Headache Stop: 08/10/19 10:18 Last Admin: 07/11/19 10:55 Dose: 100 mg Documented by: [id number] Topiramate (Topamax) 150 mg PO QAM [facility] Stop: 08/10/19 08:59 Last Admin: 07/11/19 09:30 Dose: 150 mg Documented by: [id number] Topiramate (Topamax) 200 mg PO HS [facility] Stop: 08/09/19 20:59 Last Admin: 07/10/19 20:27 Dose: 200 mg Documented by: [id number] Vitamin D (Vitamin D3) 1,000 units PO HS [facility] Stop: 08/09/19 20:59 Last Admin: 07/10/19 20:27 Dose: 1,000 units Documented by: [id number] Zolpidem Tartrate (Ambien) 10 mg PO HS PRN PRN Reason: Sleep Stop: 08/09/19 21:04 Last Admin: 07/10/19 21:44 Dose: 10 mg Documented by: [id number] Discontinued Medications Dextrose (D5w) 1,000 mls @ 80 mls/hr IV .[id number] [facility] Stop: 08/09/19 16:14 Last Infusion: 07/11/19 08:48 Dose: 0 mls/hr Documented by: [id number] Infusion: 07/10/19 18:16 Dose: 0 mls/hr Documented by: [id number] Admin: 07/10/19 16:46 Dose: 80 mls/hr Documented by: [id number] Dextrose/Sodium Chloride (D5w And Nss) 1,000 mls @ 80 mls/hr IV .[id number] [facility] Stop: 07/11/19 20:59 Last Infusion: 07/11/19 09:14 Dose: 0 mls/hr Documented by: [id number] Admin: 07/11/19 08:57 Dose: 80 mls/hr Documented by: [id number] Infusion: 07/11/19 08:45 Dose: 0 mls/hr Documented by: [id number] Admin: 07/10/19 20:27 Dose: 80 mls/hr Documented by: [id number] Sumatriptan Succinate (Imitrex) 100 mg PO NOW STA Stop: 07/10/19 12:14 Last Admin: 07/10/19 12:45 Dose: 100 mg Documented by: [id number] Description This is a 21 electrode EEG with a single channel dedicated to limited EKG. The electrodes were placed in accordance with the International 10-20 system. This EEG was done as a bedside recording and is of good technical quality with virtually no muscle or movement artifact. Photic stimulation is performed. Brief duration drowsiness is seen Conditions there is evidence for normal background rhythm in the alpha range of up to 11 Hz and maximum frequency and 30 V of maximal amplitude. This is maximum posterior head regions and bilaterally symmetrical. Polymorphic mid to upper frequency modest voltage theta activity is seen symmetrically over the central regions. Beta activity seen bifrontally Brief duration drowsiness is seen during which there is a buildup of slow wave activity but no abnormal findings are seen Photic stimulation provokes a modest driving response and no photo myogenic a photoparoxysmal component is noted Interpretation This is a normal EEG during wakefulness and brief duration drowsiness without evidence for focal or generalized encephalopathy without evidence for potentially epileptogenic activity Clinical Correlation This is a normal EEG during wakefulness and brief duration drowsiness and indicates no evidence for focal or generalized encephalopathy or evidence for potentially epileptogenic patterns Ángel Velasquez MD is
[2019-07-11] MEDS ORDERED: CLOPIDOGREL BISULFATE 75 MG TAB PO ONE (16:11)
[2019-07-11] MEDS: ASPIRIN 81 MG ECTAB PO SCH (18:19)
[2019-07-11] MEDS ORDERED: OPTIRAY 320 125ml IV PRN (20:47)
[2019-07-11] MEDS: CYCLOBENZAPRINE HCL 10 MG TAB PO SCH (20:56)
[2019-07-11] MEDS: FLUOXETINE HCL 10 MG CAP PO SCH (20:58)
[2019-07-11] MEDS: GABAPENTIN 300 MG CAP PO SCH (20:58)
[2019-07-11] MEDS: SENNA 8.6 MG TAB PO SCH (20:59)
[2019-07-11] MEDS: TOPIRAMATE 100 MG TAB PO SCH (20:59)
[2019-07-11] MEDS: MULTIVITAMIN TAB PO SCH (21:00)
[2019-07-11] MEDS: CHOLECALCIFEROL 1,000 UNITS TAB PO SCH (21:00)
--- NOTE | 2019-07-11 21:05 | CT Scan Report ---
CT ANGIOGRAM OF THE BRAIN; CT ANGIOGRAM OF THE NECK CLINICAL HISTORY: Dizziness. Weakness. COMPARISON STUDY: CT and MRI of the brain dated 07/09/2019. TECHNIQUE: Following the IV administration of 119 of Optiray 320, CT angiogram of the head and neck w as performed from the aortic arch to the vertex. Images are reviewed in the axial, sagittal, and josie nal planes. 3-D MIPS images are created and assessed. IV contrast was administered without complicati on. All measurements were calculated based on NASCET criteria. A dose lowering technique was utilize d adhering to the principles of ALARA. CT DOSE: 529.46 mGy.cm FINDINGS: Brain parenchyma: The brain parenchyma is normal in appearance. There is no hemorrhage, mass effect, or evidence of acute territorial ischemia by CT criteria. There is no evidence of enhancing mass lesi on on the angiogram phase images. The ventricles, sulci, and cisterns are normal in configuration. Me gacisterna magna is incidentally noted. Cervantes-white matter differentiation is preserved. No extra-axia l fluid collection is seen. Thoracic aorta: Visualized portions of the thoracic aorta are normal in caliber. The aortic arch demo nstrates standard 3-vessel anatomy. Right carotid arterial system: The right common carotid artery is widely patent, as are the right int ernal and external carotid arteries. Left carotid arterial system: The left common carotid artery is widely patent, as are the left general internist and physician leader al and external carotid arteries. Vertebral arteries: The vertebral arteries are widely patent bilaterally and codominant. Subclavian arteries: Widely patent bilaterally. Intracranial vasculature: The internal carotid arteries are patent at the skull base, as are the ante rior and middle cerebral arteries bilaterally. The vertebrobasilar system and posterior cerebral waylon abram are widely patent. The vertebral arteries are codominant. There is no aneurysm, high-grade steno sis, or focal vessel cut off seen throughout the intracranial circulation. Jugular veins: Patent bilaterally. Dural sinuses: Patent. Lung apices: Partially visualized upper lobe lung parenchyma appears clear. Soft tissues: The visualized pharyngeal soft tissues are normal in appearance noting angiographic pha se technique. The oropharyngeal airway appears widely patent. The salivary and thyroid glands are nor mal in appearance. No cervical lymphadenopathy is seen. Skeletal structures: The calvarium appears intact. The cervical spine is within normal limits. Sinuses and mastoids: The paranasal sinuses are clear. The mastoid air cells are well pneumatized. IMPRESSION: 1. There is no hemorrhage, mass effect, or evidence of acute territorial ischemia by CT criteria noti ng angiographic phase technique. 2. Unremarkable CT angiogram of the brain. 3. Unremarkable CT angiogram of the neck. Electronically signed by: Hunter Dover M.D. 07/11/2019 9:03 PM
--- NOTE | 2019-07-11 21:18 | Hospitalist Progress Note ---
Date of Service July 11, 2019 Assessment & Plan (1) Syncope: Brief episode of syncope associated with discomfort from blood pressure cuff. Suspect vasovagal episode. No arrhythmias noted on telemetry thus far. Noted to have hypoglycemia as discussed below, but probably not severe enough to cause loss of consciousness. Recent episodes of lightheadedness associated with abnormal speech. Consider intermittent arrhythmias. Outpatient cardiac monitoring recommended. (2) Hypoglycemia: Blood sugar was 55 after brief syncopal episode in clinic. She had not had breakfast that morning. Not diabetic. Some of her medications have been associated with hypoglycemia (bupropion, fluoxetine, topiramate). Insulinoma unlikely. Daughter has a glucometer. Patient advised to check blood sugars if not feeling well and to keep a diary to share with her PCP. (3) Speech abnormality: The episodes of what sounds like dysarthria over past week or so. Initially evaluated in ED with negative neuro imaging by CT and MRI. Neurology consulted for their input. (4) COPD with asthma: Pulmonary status stable. (5) DVT prophylaxis: Low risk for VTE per IMPROVE risk assessment model. Ambulate. (6) Discharge planning issues: Anticipated discharge to home. Family Medicine follow-up with Dr. Demarcus Tovar. Subjective Recheck for multiple problems. Patient seen in their room around 1100. Daughter visiting. No further syncope. Received IV fluids with 5% dextrose overnight with no further episodes of hypoglycemia. Migraine headache this morning like her typical headaches. No focal neurologic symptoms. Telemetry data reviewed-no arrhythmias. Review of Systems: Constitutional- no fever. Cardiac- no chest pain. Pulmonary- no cough or SOB. GI- no nausea, vomiting, diarrhea, melena, hematochezia. - no urinary symptoms. Otherwise, as noted above. Physical Exam Constitutional: no acute distress Eyes: + anicteric sclerae Respiratory: no respiratory distress Auscultation: lungs clear to auscultation bilaterally Cardiovascular: Rate/Rhythm: regular rate and regular rhythm Heart Sounds: no gallop and no cardiac rub Vessels: no JVD Extremities: no calf tenderness and no edema Gastrointestinal (Abdomen): normal bowel sounds, soft, nontender, no hepatosplenomegaly Skin: no rashes, warm and dry Psychiatric: Orientation: alert and oriented x 3 Results & Data Vital Signs (Past 12 Hours) Vital Signs Temp Pulse Pulse Pulse Resp BP Pulse Ox 07/11/19 20:18 36.8 C 68 19 104/67 100 07/11/19 16:00 63 07/11/19 15:22 36.8 C 67 18 104/68 99 07/11/19 11:35 36.8 C 64 17 101/68 100 07/11/19 10:59 58 L Laboratory Results 07/11/19 05:19 07/11/19 05:19
[2019-07-11] MEDS: ZOLPIDEM TARTRATE 10 MG TAB PO PRN (22:05)
[2019-07-12] MEDS: [UNRECOGNIZED DRUG - REMARK] SCH ×2 (07:17→10:02)
[2019-07-12] MEDS: LINZESS - ORDER AWAITING ACTION SCH ×2 (07:18→10:02)
[2019-07-12] MEDS: SUMAtriptan succinate 100 MG TAB PO PRN (08:02)
[2019-07-12] MEDS: FAMOTIDINE 20 MG TAB PO SCH (08:03)
[2019-07-12] MEDS: FLUTICASONE/SALMETEROL 250/50 (ADVAIR) 14 PUFF/1 INHALER INH SCH (08:04)
[2019-07-12] MEDS: PANTOprazole 40 MG TAB PO SCH (08:04)
[2019-07-12] MEDS: GABAPENTIN 100 MG CAP PO SCH (08:05)
[2019-07-12] MEDS: POTASSIUM CHLORIDE 10 MEQ TABCR PO SCH (08:05)
[2019-07-12] MEDS: BuPROPion SR 100 MG TABCR PO SCH (08:05)
[2019-07-12] MEDS: ASPIRIN 81 MG ECTAB PO SCH (08:06)
[2019-07-12] MEDS: TOPIRAMATE 50 MG TAB PO SCH (08:06)
[2019-07-12] MEDS ORDERED: CLOPIDOGREL BISULFATE 75 MG TAB PO SCH (09:00)
--- NOTE | 2019-07-12 10:14 | Progress Note ---
DATE: 07/12/2019 HISTORY OF PRESENT ILLNESS: Ana is doing well today without any recurrent symptoms. She does have a migrainous headache. Reviewing her medical record, I can see she had an MRI in 08/2018. She indicates to me, although she had said she has never had other numbness, tingling, weakness that in 08/2018, she was driving in a car and she had sudden numbness in her right arm, leg with weakness of the right lower extremity and neck pain. She does not recall if she had a headache. Neurologic symptoms lasted several minutes. Several days later, she had a similar episode with the headache, went to the Emergency Room and had an MRI of the brain, which was unremarkable. I am unable to find that historical visit. CTA of head and neck are normal. Hypercoagulable state workup pending. Echo was performed and is noncontributory, although there was no bubble study. Blood pressure 99/63, pulse 66, respiratory rate 18, temperature 36.8. The patient is awake and alert, normal speech and language. Affect is appropriate. There is normal extraocular motility, visual johnson, facial symmetry and speech. Motor 5/5 in the upper and lower extremities. IMPRESSION: Episode of dysarthria. Unclear if accompanying headache. While the patient had previously denied prior neurologic symptoms with headache, apparently that is not the case. The differential remains migrainous phenomenon versus transient ischemic attack. I favor that this is migrainous. I would complete a vascular workup with adding a bubble study to the echocardiography. If she has a PFO, I would do a venous Doppler of the upper and lower extremities. Hypercoagulable state workup is pending. We have placed her on aspirin, ordered Plavix; however, the pharmacist indicates that there is a contraindication with one of her other medications. We will continue her on aspirin at present. I would recommend increasing her gabapentin which is currently 100 mg b.i.d. and 300 mg at bedtime and 300 mg in the morning and 300 mg in the afternoon and 300 mg at night, hold that for a week and then 300 mg 3 times a day. We did speak about whether or not she would be a candidate for CGRP inhibitor. She has 2 or more migraines a week. Prophylactically, she has been on Topamax, gabapentin, inderal, and amitriptyline at very least. When the patient is seen in the office, we will arrange to have her enrolled for whatever CGRP inhibitor is on her formulary. I would discharge the patient on aspirin and with the aforementioned changing gabapentin, no change in the Topamax, and arrange a site monitor as an outpatient. She should see Emeli Cardozo in followup within the next 2-3 weeks. WILFREDO
--- NOTE | 2019-07-12 11:25 | Hospitalist Progress Note ---
Date of Service July 12, 2019 Assessment & Plan (1) Syncope: Brief episode of syncope in clinic associated with discomfort from blood pressure cuff. Suspect vasovagal episode. No significant arrhythmias noted on telemetry. Noted to have hypoglycemia as discussed below, but probably not severe enough to cause loss of consciousness. Recent episodes of lightheadedness associated with abnormal speech- possible TIA vs migraine as discussed below. No significant valvular heart disease per echo. Consider intermittent arrhythmias. Outpatient cardiac monitoring recommended with ZIO patch recommended. (2) Hypoglycemia: Blood sugar was 55 after brief syncopal episode in clinic. She had not had breakfast that morning. Not diabetic. Some of her medications have been associated with hypoglycemia (bupropion, fluoxetine, topiramate). Insulinoma unlikely. Daughter has a glucometer. Patient advised to check blood sugars if not feeling well and to keep a diary to share with her PCP. (3) Speech abnormality: The episodes of what sounds like dysarthria over past week or so. Initially evaluated in ED with negative neuro imaging by CT and MRI. Neurology consulted for their input. No arrhythmias noted on telemetry. Outpatient ZIO patch recommended. CTA cervical and intracranial vessels- no abnormalities. Echo- no thrombi, no PFO. Hypercoag evaluation ordered- results pending. Episodes possibly related to migraines. TIA's possible, but less likely. Antiplatelet therapy with aspirin recommended. Outpatient f/u with Neuro. (4) COPD with asthma: Pulmonary status stable. (5) DVT prophylaxis: Low risk for VTE per IMPROVE risk assessment model. Ambulating. (6) Discharge planning issues: Discharge to home. Family Medicine follow-up with Dr. Demarcus Tovar. Subjective Doing well except for migraine headache. No further syncopal episodes. No further episodes of hypoglycemia. No significant arrhythmias. No further episodes of dysarthria. Ambulating. Would like to go home. Physical Exam Constitutional: no acute distress Eyes: + anicteric sclerae Respiratory: no respiratory distress Auscultation: lungs clear to auscultation bilaterally Cardiovascular: Rate/Rhythm: regular rate and regular rhythm Heart Sounds: no gallop and no cardiac rub Vessels: no JVD Extremities: no calf tenderness and no edema Gastrointestinal (Abdomen): normal bowel sounds, soft, nontender, no hepatosplenomegaly Skin: no rashes, warm and dry Psychiatric: Orientation: alert and oriented x 3 Results & Data Vital Signs (Past 12 Hours) Vital Signs Temp Pulse Pulse Resp BP Pulse Ox 07/12/19 08:00 36.8 C 66 18 99/63 L 96 07/12/19 04:36 36.7 C 53 L 17 96/53 L 97 07/12/19 00:51 64 (1) Syncope Syncope type: unspecified Qualified Code(s): R55 - Syncope and collapse
[2019-07-12 11:36] VITALS: BP 91/52; PULSE 67; TEMP 98.2; O2SAT 96
--- NOTE | 2019-07-14 07:07 | Discharge Summary ---
Date of Service Date of Admission: 07/10/19 Date of Discharge: 07/12/19 Admission HPI Per Admitting Provider 49-year-old female who presents the ED for evaluation after syncopal event. Patient was seen in the ER yesterday for reports of slurred speech. She had head CT and brain MRI that were negative for acute findings. Patient symptoms resolved and she was feeling improved and was discharged home. Today, patient was at the outpatient GI office for a routine appointment. She reports that her side just finished taking her blood pressure and was removing the blood pressure cuff from her left arm when she developed left arm pain radiating into the left side of her neck. She then started to feel lightheaded and dizzy in the next thing she knew she was on the ground. Per report, blood sugar was checked and found to be 55. Patient was given dextrose with improvement in blood sugar. No reported seizure-like activity. Patient denies any preceding chest pain or shortness of breath. No other recent illnesses, fevers, chills. She denies abdominal pain, nausea, vomiting, diarrhea. No urinary symptoms. In the ED, EKG does not show any acute ST changes and labs are unremarkable. Patient has remained hemodynamically stable. Principal Diagnosis syncopal episode- probably vasovagal OTHER ACUTE / NEW DIAGNOSES hypoglycemia transient speech abnormalities- migraine vs possible TIA Discharge Data Allergies Allergy/AdvReac Type Severity Reaction Status Date / Time nicotine Allergy Mild NICOTINE Verified 07/10/19 11:33 PATCH-RASH AND EDEMA honey Allergy Unknown RAW Verified 07/10/19 11:33 HONEY-THROAT SWELLING, SOB meperidine Allergy Unknown THROAT Verified 07/10/19 11:33 SWELLED, SOB Consultations 07/10/19 12:52 ED Decision to Admit Stat 07/11/19 11:24 Consult Neurology Routine Ordered Studies 07/11/19 14:56 CT angio head w con Routine CT angio neck with con Routine Hospital Course (1) Syncope: Brief episode of syncope in clinic associated with discomfort from blood pressure cuff. Suspect vasovagal episode. No significant arrhythmias noted on telemetry. Noted to have hypoglycemia as discussed below, but probably not severe enough to cause loss of consciousness. Recent episodes of lightheadedness associated with abnormal speech- migraine vs possible TIA as discussed below. No significant valvular heart disease per echo. Consider intermittent arrhythmias. Outpatient cardiac monitoring with ZIO patch recommended. (2) Hypoglycemia: Blood sugar was 55 after brief syncopal episode in clinic. She had not had breakfast that morning. Not diabetic. Some of her medications have been associated with hypoglycemia (bupropion, fluoxetine, topiramate). Insulinoma unlikely. Daughter has a glucometer. Patient advised to check blood sugars if not feeling well and to keep a diary to share with her PCP. (3) Speech abnormality: Episodes of what sounds like transient dysarthria over week prior to admission. Initially evaluated in ED with negative neuro imaging by CT and MRI. Neurology consulted. No arrhythmias noted on telemetry. Outpatient ZIO patch recommended. CTA cervical and intracranial vessels- no abnormalities. Echo- no thrombi, no PFO. Hypercoag evaluation ordered- results pending. Episodes possibly related to migraines. TIA's possible, but less likely. Antiplatelet therapy with aspirin recommended. Outpatient f/u with Neuro. (4) COPD with asthma: Pulmonary status stable. (5) DVT prophylaxis: Low risk for VTE per IMPROVE risk assessment model. Ambulating. (6) Discharge planning issues: Discharged to home. Family Medicine follow-up with Dr. Demarcus Tovar. Total Time Total Time Spent Total Time Spent (In Minutes): 30 Discharge Plan Discharge Items Patient Disposition: Home - Self-Care Reason For Visit: fainting spell Discharge Diagnosis: fainting spell- probably related to pain low blood sugar- resolved dizzy spells trouble speaking- possible TIA's (ministrokes) or related to migraines Condition on Discharge: Good Activity: As commented below Activity Comment: Activity with care until you are feeling better. Driving/Machine Use: No driving until better. Non-emergency contact: Primary Care Provider, Hospitalist and Neurologist Call non-emergency contact if: you have any medication questions, your symptoms worsen and your temperature is above 101 Follow-up/Referrals: Demacrus Tovar DO [Primary Care Provider] - (07/15/2019 11:00 AM Jamila Merritt DO(covering for Dr. Tovar) [facility]) Diet: Heart Healthy Addtl Attending Provider Instructions: MEDICATION CHANGES: Start aspirin 81 mg daily. New dose of gabapentin (Neurontin): For next 7 days... Take 200 mg in the morning, 300 mg in the afternoon, then 300 mg at bedtime Then... Take 300 mg 3 times a day. (will send new prescription to your pharmacy) SUMMARY OF TEST RESULTS: Blood sugars as low as 63 in hospital, but stable for last 2 days. Heart rhythm was regular. No sign of a heart attack. CT angiogram of arteries in neck and brain looked good- no blockages. Echocardiogram without injected bubbles did not show any significant abnormalities. PENDING TEST RESULTS: Several blood tests related to blood clotting. Results from 2nd echocardiogram "bubble study." RECOMMENDATIONS FOR FOLLOW-UP: Neurology follow-up with Emeli Cardozo PA-C in 2-3 weeks. Please ask for referral. Please ask Dr. Merritt to arrange for a ZIO patch to monitor your heart rhythm at home. STROKE / TIA (MINISTROKE) INSTRUCTIONS: Risk Factors for Stroke: You can reduce your chances of stroke by working with your medical provider to adopt a healthy lifestyle. Some specific ways to lower your chance of stroke are: * If you are a smoker, now is the time to stop smoking cigarettes * If you are diabetic, improve the control of your blood sugars * Avoid excessive amounts of alcohol * Control high blood pressure * Lose weight if you are overweight * Be sure to lead an active lifestyle * Eat a healthy diet low in salt, cholesterol and fat You should know about other risk factors for stroke that you are unable to control. These include: * Age 55 years or older * Male gender * Certain racial groups: , or / * Family History of Stroke, Mini stroke or Heart Attack * Sickle Cell Disease Follow Up: It is important for you to keep your follow up appointments with your medical provider. Who to Call and When: Medical Emergencies: Call 911 immediately if you experience any of the following warning signs and symptoms of Stroke: * Sudden numbness or weakness of the face, arm or leg, especially on one side of the body * Sudden confusion, trouble speaking or understanding * Sudden trouble seeing in one or both eyes * Sudden trouble walking, dizziness, loss of balance or coordination * Sudden severe headache with no cause Do not delay calling 911 if you experience any warning signs or symptoms of a stroke. Delay in seeking medical attention may affect what treatments can be given to you. . OTHER INSTRUCTIONS: Avoid missing meals. Check blood sugar with your daughter's glucometer if you are not feeling well and record results. Please do not drive until you have results of heart monitor (ZIO patch). Seek medical attention if you have: * temperature above 101 * chest pain or trouble breathing * abdominal pain, nausea, vomiting * diarrhea, dark stools or bloody stools * any unanswered questions or concerns Call 911 if symptoms are severe. Please take good care of yourself. Call if you have any questions or problems. You can reach a [facility] hospitalist on duty at [facility] 24 hours a day by calling [phone]. My cell # is [phone]. Pending Studies at Discharge: Yes (as noted above) Stand-Alone Forms: My [facility], Smoking Cessation Medications and DC Order Prescriptions: New aspirin [Ecotrin Low Strength] 81 mg tablet,delayed release (DR/EC) 81 mg PO DAILY Qty: 30 RF: 12 gabapentin 300 mg capsule 300 mg PO TID Qty: 90 RF: 5 Continued cyclobenzaprine 10 mg tablet 10 mg PO HS RF: 0 fluticasone propion-salmeterol [Advair Diskus] 250-50 mcg/dose Blister With Device 1 inh INHALATION QAM RF: 0 sennosides [Senna Lax] 8.6 mg Tablet 2 tab PO HS RF: 0 potassium chloride 10 mEq capsule, extended release 10 meq PO BID RF: 0 sumatriptan succinate [Imitrex] 100 mg tablet 100 mg PO DAILY MDD 200 mg PRN (Reason: Migraine Headache) RF: 0 hydrocodone-acetaminophen 5-325 mg tablet 1 tab PO DAILY PRN (Reason: Pain) RF: 0 fluoxetine 10 mg Capsule 10 mg PO QPM RF: 0 magnesium citrate Solution 120 ml PO DAILY PRN (Reason: Constipation) RF: 0 polyethylene glycol 3350 17 gram/dose Powder 17 g PO DAILY PRN (Reason: Constipation) RF: 0 zolpidem 10 mg tablet 10 mg PO HS RF: 0 albuterol sulfate 90 mcg/actuation Hfa Aerosol Inhaler 2 puff INHALATION QID PRN (Reason: Wheezing) RF: 0 topiramate [Topamax] 100 mg tablet 150 mg PO QAM RF: 0 bupropion HCl [Wellbutrin SR] 200 mg Tablet Sustained-Release 12 Hr 200 mg PO QAM RF: 0 cholecalciferol (vitamin D3) [Vitamin D3] 1,000 unit Tablet 1,000 unit PO HS RF: 0 umeclidinium 62.5 mcg/actuation Blister With Device 1 inh INHALATION QAM RF: 0 riboflavin (vitamin B2) 400 mg Tablet 400 mg PO QAM RF: 0 One-A-Day Women's 50 Plus 400-20 mcg Tablet 1 tab PO HS RF: 0 topiramate [Topamax] 100 mg Tablet 200 mg PO HS RF: 0 omeprazole 40 mg capsule,delayed release(DR/EC) 40 mg PO DAILY RF: 0 famotidine 20 mg tablet 20 mg PO DAILY RF: 0 lorazepam 1 mg tablet 1 mg PO Q6H PRN (Reason: Anxiety) RF: 0 Linzess 290 mcg capsule 290 mcg PO DAILY RF: 0 Discontinued gabapentin 300 mg capsule 300 mg PO HS RF: 0 gabapentin 100 mg capsule 100 mg PO BIDM RF: 0 Discharge Orders: Discharge Order (Routine); Ordered 07/12/19 Ordered By: Ángel Mendez Admission Data Admit Date/Time: 07/10/19 13:57 Attending Provider: Ángel Mendez Admit Provider: Carter Hunt Primary Care Provider: Demarcus Tovar Other Providers: Carter Hunt ; Emeli Rodriguez Other Interventions: Discharge Summary Assessment (RN) Last Done: 07/12/19 11:34 DC Date/Time DO NOT enter until pt leaves facility: 07/12/19 12:49
[2019-07-15 14:20] LABS: Ehrlichia chaff IgG Ab <1:64 (<1:64); Ehrlichia chaff IgM Ab <1:20 (<1:20)
[2019-07-18 17:12] LABS: Anti Cardiolipin Ab IgG <14 GPL (< = 14); Anti Cardiolipin Ab IgM <12 MPL (< = 12); Anti-Cardiolipin Ab IgA <11 APL (< = 11); Anti-Thrombin III Activity 120 % activity (80-120); B2 Glycoprotein IgA <9 SAU (<=20); B2 Glycoprotein IgG <9 SGU (<=20); B2 Glycoprotein IgM <9 SMU (<=20); Lupus Antic Hexagonal Phase Negative (Negative); Protein S Functional(Activity) 91 % (60-140)
== END 2019-07-12 12:49 | disposition home or self-care (01) ==
LOC: 2S 10:47 → ED 10:47 → SUATTDRO 13:57 → 2S 14:45

== ENCOUNTER 2019-10-06 10:51 | Inpatient (IN) ==
[2019-10-06] MEDS ORDERED: SODIUM CHLORIDE 0.9% 1000ML 2,000 ML IV ONE (11:20)
[2019-10-06] MEDS ORDERED: DEXAMETHASONE **PF** INJ 10 MG/ML VIAL IV ONE (11:27)
[2019-10-06] MEDS ORDERED: DiphenhydrAMINE HCL 50 MG/ML VIAL IV STA (11:27)
[2019-10-06] MEDS ORDERED: PROCHLORPERAZINE 2 ML IV ONE (11:27)
[2019-10-06] MEDS ORDERED: ACETAMINOPHEN 1,000 MG/100 ML VIAL IV STA (11:27)
[2019-10-06 11:46] LABS: Basophils # (auto) 0.04 K/uL (0-0.2); Basophils % (auto) 0.7 %; Eosinophils # (auto) 0.33 K/uL (0-0.5); Eosinophils % (auto) 5.8 %; Hematocrit (blood only) 38.7 % (37-47); Hemoglobin 12.8 g/dL (12.0-16.0); Immature Granulocytes # (auto) 0.01 K/uL (0.00-0.02); Immature Granulocytes % (auto) 0.2 %; Lymphocytes # (auto) 2.11 K/uL (1.2-3.4); Lymphocytes % (auto) 37.1 %; Mean Corpuscular Hgb Conc 33.1 g/dL (32-36); Mean Corpuscular Volume 93.7 fL (80-100); Mean Platelet Volume 9.9 fL (7.4-10.4); Monocytes # (auto) 0.36 K/uL (0.11-0.59); Monocytes % (auto) 6.3 %; Neutrophils # (auto) 2.83 K/uL (1.4-6.5); Neutrophils % (auto) 49.9 %; Platelet Count 322 K/uL (130-400); RDW Coefficient of Variation 13.1 % (11.5-14.5); RDW Standard Deviation 44.9 fL (36.4-46.3); Red Blood Count 4.13 M/uL (4.2-5.4); White Blood Count 5.68 K/uL (4.8-10.8)
[2019-10-06 11:52] LABS: Partial Thromboplastin Time 25.8 Seconds (21.0-31.0); Prothrombin Time 10.7 Seconds (9.0-12.0)
[2019-10-06 11:53] LABS: Alanine Aminotransferase 22 U/L (12-78); Albumin Level 4.2 gm/dl (3.4-5.0); Aspartate Aminotransferase 15 U/L (15-37); BUN Creatinine Ratio 10.3 (10-20); Blood Urea Nitrogen 13 mg/dl (7-18); Calcium 8.8 mg/dl (8.5-10.1); Carbon Dioxide 25 mmol/L (21-32); Chloride 110 mmol/L (98-107); Creatinine Clr Calc Pharmacy 51.2 ml/min; Est GFR (African American) 61.3; Est GFR (Non-African American) 52.9; Glucose 76 mg/dl (70-99); Magnesium 2.4 mg/dl (1.8-2.4); Potassium 3.6 mmol/L (3.5-5.1); Sodium 140 mmol/L (136-145)
[2019-10-06 12:03] LABS: Albumin Globulin Ratio 1.1 (0.9-2); Alkaline Phosphatase 104 U/L (45-117); Bilirubin,Total 0.4 mg/dl (0.2-1); Globulin 3.8 gm/dl (2.5-4.0); Phosphorus 3.3 mg/dl (2.5-4.9); Troponin I < 0.015 ng/ml (0-0.045)
[2019-10-06 12:07] LABS: Appearance Urine Clear (Clear); Bilirubin Urine Negative (Negative); Blood Urine Negative (Negative); Color Urine Yellow; Glucose Urine UA Negative (Negative); Ketones Urine Negative (Negative); Leukocyte Esterase Urine Negative (Negative); Nitrite Urine Negative (Negative); Protein Urine Negative (Negative); Specific Gravity Urine 1.007 (1.000-1.030); Urobilinogen Urine Negative (Negative); pH Urine 6.5 (4.5-7.5)
[2019-10-06] MEDS ORDERED: OPTIRAY 320 125ml IV PRN (12:33)
--- NOTE | 2019-10-06 12:42 | CT Scan Report ---
CT head/brain wo con CLINICAL HISTORY: Stroke evaluation WEAKNESS. LEFT-SIDED NUMBNESS. SUSPECTED STROKE. COMPARISON STUDY: 07/26/2019 TECHNIQUE: Axial CT of the brain is performed from the vertex to the skull base. IV contrast was not administered for this examination. A dose lowering technique was utilized adhering to the principles of ALARA. CT DOSE: 1069.30 mGy.cm FINDINGS: No intra or extra-axial mass lesions are visualized. There is no CT evidence of acute cortical infarc tion. There is no evidence of midline shift. There is no acute hemorrhage. No calvarial fractures ar e visualized. 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 There is no evidence of pathologic ventricular dilatation. There is no evidence of acute sinusitis IMPRESSION: No acute intracranial findings ACT 112: Negative or not required by law. Electronically signed by: Mauricio Dow M.D. 10/06/2019 12:41 PM
--- NOTE | 2019-10-06 12:58 | CT Scan Report ---
HEAD & NECK CTA HISTORY: left sided numbness TECHNIQUE: Multiaxial CT images of the head were performed following the intravenous administration o f contrast to evaluate the major cerebral vessels. Multiaxial CT images of the neck were also perform ed following the intravenous administration of contrast to evaluate the major cervical vessels. Maxim um intensity projection images were also obtained. A dose lowering technique was utilized adhering to the principles of ALARA. COMPARISON: Head and neck CTA 07/11/2019. FINDINGS: There is no mass, hematoma, midline shift, or acute infarct. Visualized intracranial internal carotid arteries, distal vertebral arteries, and basilar artery are widely patent. There is no significant s tenosis, occlusion, or aneurysm seen within the bilateral ACAs, MCAs, or radiological technologist. The major dural venous sinuses are patent. The aortic arch and proximal great vessels are widely patent. There is no significant stenosis, occ lusion, or dissection identified within the bilateral common carotid, internal carotid, or vertebral arteries. IMPRESSION: 1. No significant stenosis, occlusion, or aneurysm within the [place]. 2. No significant stenosis, occlusion, or dissection identified within the carotid or vertebral arter ies. ACT 112: Negative or not required by law. Electronically signed by: Afshin Figueredo M.D. 10/06/2019 12:57 PM
--- NOTE | 2019-10-06 12:58 | CT Scan Report ---
HEAD & NECK CTA HISTORY: left sided numbness TECHNIQUE: Multiaxial CT images of the head were performed following the intravenous administration o f contrast to evaluate the major cerebral vessels. Multiaxial CT images of the neck were also perform ed following the intravenous administration of contrast to evaluate the major cervical vessels. Maxim um intensity projection images were also obtained. A dose lowering technique was utilized adhering to the principles of ALARA. COMPARISON: Head and neck CTA 07/11/2019. FINDINGS: There is no mass, hematoma, midline shift, or acute infarct. Visualized intracranial internal carotid arteries, distal vertebral arteries, and basilar artery are widely patent. There is no significant s tenosis, occlusion, or aneurysm seen within the bilateral ACAs, MCAs, or security clerk. The major dural venous sinuses are patent. The aortic arch and proximal great vessels are widely patent. There is no significant stenosis, occ lusion, or dissection identified within the bilateral common carotid, internal carotid, or vertebral arteries. IMPRESSION: 1. No significant stenosis, occlusion, or aneurysm within the [place]. 2. No significant stenosis, occlusion, or dissection identified within the carotid or vertebral arter ies. ACT 112: Negative or not required by law. Electronically signed by: Afshin Figueredo M.D. 10/06/2019 12:57 PM
--- NOTE | 2019-10-06 14:18 | History & Physical Report ---
Date of Service October 06, 2019 Assessment & Plan (1) Stroke-like symptom: This is a 49-year-old male who has significant PMH of COPD, history of TIA, chronic low back pain with history of lumbar laminectomy, depression, GERD, IBS who presents to ED secondary to strokelike symptoms starting at approximately 230 this morning. Pt presented with transient dysarthria and L sided weakness now resolved except LLE weakness specifically distally. Work up in ED unremarkable, except for mild elevation Cr. Per pt this is her 4th admit for similar sx, unknown etiology, dx with TIA vs complex migraine in past. Saw Neurology Dr. Rodriguez in clinic today. admit to PCU neurology consulted - await their recs order MRI - last done 06/2019 - mild chronic small vessel change unaltered compared to prior exam, stable arachnoid cyst EEG Last echo done 06/2019 WNL and no ASD or PFO noted - ? if GALILEO would be of benefit continue ASA (last dose today) await neurology recommends for further tx (recently taken off plavix) check A1C and lipid panel, pt discontinued statin due to intolerance continue gabapentin and topamax per Neuro pt also with reported difficulty starting stream with urination and now L plantar flexion weakness - if worsens or doesn't resolve consider Lumbar MRI given previous hx of back surgery (2) Acute renal insufficiency: Baseline creatinine 1.0 BUN/creatinine 30 and 1.21 Likely in setting of dehydration Give IVF and repeat in a.m. (3) COPD with asthma: No acute exacerbation Continue Advair and Umeclidinium (4) Generalized anxiety disorder: Mood stable Continue escitalopram and Ativan as needed (5) IBS (irritable bowel syndrome): continue linzess and bowel regimen asymptomatic DVT PPx: Low risk per IMPROV Assesment encourage ambulation FULL CODE Disposition: Admit to tele Follow up: PCP Dr. Tovar upon discharge along with appropriate neurology follow up History of Present Illness Chief Complaint: Stroke like sx starting at 2:30 a.m. Primary Care Provider: Demarcus Tovar, DO This is a 49-year-old male who has significant PMH of COPD, history of TIA, chronic low back pain with history of lumbar laminectomy, depression, GERD, IBS who presents to ED secondary to strokelike symptoms starting at approximately 230 this morning. She said she woke up early this morning after having a dream and felt like she was sleep talking. When she woke up she felt like her speech was slurred. She continued to talk to her self to see if speech improved, but it did not. She went back to sleep. When she woke up at approximately 7-7 30 this morning she continued to have slurred speech. When she went to talk to her her noted that she was repeating herself saying, "no no no," and speech was slurred. The symptoms lasted 3 minutes per before he noticed them resolved. and daughter are at bedside. Prior to seeing her around 730 this morning she did let the dog out, and according to the daughter the gate to let her out is difficult to use so feels she must have been well then. Currently her symptoms have improved except she does complain of res idual left-sided weakness of the lower extremity and left foot drop. "That is my good leg." Due to hx of chronic LBP with hx of lumbar laminectomy she always has R foot drop/weakness. denies any facial drop or flaccidity. Initially she did not present to ED because she had appointment already scheduled with neurology Dr. Rodriguez. She was seen and evaluated by Dr. Rodriguez who recommended she be seen in ED to be admitted for MRI and EEG work-up. Patient and daughter are very frustrated and state, "this is our fourth admission and we still understand was going on." She further complains of difficulty starting stream with urine. "I have to sit there awhile before it comes out." She denies any recent illness, f/c/s, dizziness, lightheaded, change in vision, change in hearing, GREGORY, chest pain, sob, palpitations, n/v/d, abdominal pain, dysuria, increased freq, melena, hematochezia. Appetite has been normal and admits to weight gain. In ED patient remained hemodynamically stable. She was not TPA candidate secondary to duration of symptoms and further resolution of symptoms. Lab work-up relatively unremarkable. She underwent head CT, head and neck CTA which were otherwise unremarkable. Cr mild elevated at 1.21, baseline is around 1.0. Her troponin and TSH WNL. Of significance she has been hospitalized in past 06/2019 for similar sx after syncopal episode. It was also reported prior to the syncopal episode of dysarthria-like symptoms. At that time she underwent strokelike work-up with MRI, EEG, CT head, CTA of head and neck which are unremarkable. She has Ziopatch as outpt which was reported as normal and hypercoaguable work up which was unremarkable from what I can see including factor V, prothrombin, cardiolipin antib. She was placed on dual antiplatelet therapy aspirin and Plavix as well as statin. Her Plavix recently discontinued. Her stenosis continue due to intolerance. There was concern for TIA vs Complex migraine; therefore they have been titrating her gabapentin and she is also on topamax. Allergies Allergy/AdvReac Type Severity Reaction Status Date / Time nicotine Allergy Mild NICOTINE Verified 10/06/19 11:53 PATCH-RASH AND EDEMA honey Allergy Unknown RAW Verified 10/06/19 11:53 HONEY-THROAT SWELLING, SOB meperidine Allergy Unknown THROAT Verified 10/06/19 11:53 SWELLED, SOB Home Medications Home Medications Medication Instructions Recorded Confirmed Type One-A-Day Women's 50 Plus 1 tab PO HS 12/25/18 10/06/19 History albuterol sulfate 2 puff INHALATION QID PRN 12/25/18 10/06/19 History bupropion HCl [Wellbutrin SR] 200 mg PO BID 12/25/18 10/06/19 History cholecalciferol (vitamin D3) 1,000 unit PO HS 12/25/18 10/06/19 History [Vitamin D3] cyclobenzaprine 10 mg PO HS PRN 12/25/18 10/06/19 History fluticasone propion-salmeterol 1 inh INHALATION QA 12/25/18 10/06/19 History [Advair Diskus] hydrocodone-acetaminophen 1 tab PO DAILY PRN 12/25/18 10/06/19 History magnesium citrate 120 ml PO DAILY PRN 12/25/18 10/06/19 History polyethylene glycol 3350 17 g PO DAILY PRN 12/25/18 10/06/19 History potassium chloride 10 meq PO BID 12/25/18 10/06/19 History riboflavin (vitamin B2) 400 mg PO QAM 12/25/18 10/06/19 History sennosides [Senna Lax] 2 tab PO HS 12/25/18 10/06/19 History sumatriptan succinate [Imitrex] 100 mg PO DAILY PRN MDD 200 mg 12/25/18 10/06/19 History topiramate [Topamax] 150 mg PO QAM 12/25/18 10/06/19 History umeclidinium 1 inh INHALATION QAM 12/25/18 10/06/19 History zolpidem 10 mg PO HS 12/25/18 10/06/19 History Linzess 290 mcg PO DAILY 07/10/19 10/06/19 History lorazepam 1 mg PO Q6H PRN 07/10/19 10/06/19 History omeprazole 40 mg PO QAM 07/10/19 10/06/19 History topiramate [Topamax] 200 mg PO HS 07/10/19 10/06/19 History aspirin [Ecotrin Low Strength] 81 mg PO QAM 07/26/19 10/06/19 History escitalopram oxalate 10 mg PO QAM 07/26/19 10/06/19 History gabapentin 200 mg PO BID 10/06/19 10/06/19 History gabapentin 600 mg PO HS 10/06/19 10/06/19 History magnesium oxide 400 mg PO HS 10/06/19 10/06/19 History Past Med/Surg History Medical History COPD with asthma Generalized anxiety disorder (Chronic) IBS (irritable bowel syndrome) (Chronic) Lumbar stenosis with neurogenic claudication (09/02/14) Migraines (Chronic) Surgical History H/O laminectomy L4-S1 2014 Dr. 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 Beliefs That Will Affect Care: None Current Living Situation: Spouse Other Information That Helps Us Care for You: No Feels Safe at Home: Yes Safety Concerns: Feels Safe At This Time Smoking Status: Former smoker packs per day: 1 ; Years Smoked: 20 ; Do You Dip or Chew Tobacco: No ; Smoking End Date: 2006 ; Number of Years Since Quit: 15 ; Second Hand Exposure: No ; Tobacco Cessation Education Requested by Patient: No Hx Alcohol Use: No Hx Substance Use: No Review of Systems Review of Systems: All systems reviewed & are unremarkable except as noted in HPI & below Physical Exam Physical Exam: Constitutional: WD/WN, F, vitals as above, NAD, sitting up in bed, pleasant, conversing easily Head: Normocephalic, Atraumatic Eyes: PERRL, conjunctivae normal, anicteric sclerae ENMT: external ear and nose normal, oropharynx normal Neck: trachea midline, no thyromegaly normal visual inspection Respiratory: normal respiratory effort, lungs clear to auscultation, no wheeze, rales, rhonchi. Normal insp/exp effort, no accessory muscle use Cardiovascular: RRR, no murmur, no edema Vessels: no JVD or carotid bruit Chest: normal inspection of chest Abdomen: normal bowel sounds, soft, nontender, no hepatosplenomegaly Musculoskeletal: no cyanosis or clubbing, extremities motor strength 5/5 except L plantar flexion 4/5 and L hip ext 4/5, no clonus, no babinski Skin: no rashes, warm and dry normal turgor Neurologic: PERRL, EOMI, accommodation nl, no face palsy, no dysarthria CN's II-XI intact bilaterally and moves all extremities , no pronator drift, point to point intact Psychiatric: A+Ox3, euthymic affect Lymphatic: no cervical or axillary lymphadenopathy : deferred Results & Data Vital Signs (Past 12 Hours) Vital Signs Temp Pulse Pulse Resp BP BP Pulse Ox 10/06/19 12:45 63 16 94/50 L 99 10/06/19 12:02 85 12 111/83 100 10/06/19 11:52 78 14 93/67 L 100 10/06/19 10:56 36.3 C L 77 16 116/81 100 Laboratory Results Short CBC 10/06/19 10/06/19 Range/Units 11:20 11:20 WBC 5.68 (4.8-10.8) K/uL Hgb 12.8 (12.0-16.0) g/dL Hct 38.7 (37-47) % Plt Count 322 (130-400) K/uL Creatinine 1.21 H (0.6-1.2) mg/dl BMP 10/06/19 11:20 Sodium 140 Potassium 3.6 Chloride 110 H Carbon Dioxide 25 BUN 13 Creatinine 1.21 H Glucose 76 Calcium 8.8 Cardiac Enzymes 10/06/19 Range/Units 11:20 Troponin I < 0.015 (0-0.045) ng/ml Liver Function 10/06/19 Range/Units 11:20 Total Bilirubin 0.4 (0.2-1) mg/dl AST 15 (15-37) U/L ALT 22 (12-78) U/L Alkaline Phosphatase 104 (45-117) U/L Albumin 4.2 (3.4-5.0) gm/dl Urine 10/06/19 Range/Units 11:15 Urine Color Yellow Urine Appearance Clear (Clear) Urine pH 6.5 (4.5-7.5) Ur Specific [place] 1.007 (1.000-1.030) Urine Protein Negative (Negative) Urine Glucose (UA) Negative (Negative) Diagnostic Findings Head CT: No intra or extra-axial mass lesions are visualized. There is no CT evidence of acute cortical infarction. There is no evidence of midline shift. There is no ac amy hemorrhage. No calvarial fractures are visualized. 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 There is no evidence of pathologic ventricular dilatation. There is no evidence of acute sinusitis IMPRESSION: No acute intracranial findings Head CTA: IMPRESSION: 1. No significant stenosis, occlusion, or aneurysm within the [place]. 2. No significant stenosis, occlusion, or dissection identified within the carotid or vertebral arteries. Neck CTA: IMPRESSION: 1. No significant stenosis, occlusion, or aneurysm within the [place]. 2. No significant stenosis, occlusion, or dissection identified within the carotid or vertebral arteries. Medications Administered Ioversol (Optiray 320 125ml) 120 ml IV ONCE PRN PRN Reason: Interaction Checking Stop: 10/10/19 12:32 Last Admin: 10/06/19 12:33 Dose: 120 ml Documented by: [id number] Discontinued Medications Dexamethasone Sodium Phosphate (Decadron Pf) 10 mg IV NOW ONE Stop: 10/06/19 11:28 Last Admin: 10/06/19 11:54 Dose: 10 mg Documented by: [id number] Diphenhydramine HCl (Benadryl) 25 mg IV NOW STA Stop: 10/06/19 11:28 Last Admin: 10/06/19 11:54 Dose: 25 mg Documented by: [id number] Sodium Chloride (Nss 1000ml) 2,000 mls @ 999 mls/hr IV .Q2H1M ONE Stop: 10/06/19 13:20 Last Infusion: 10/06/19 13:56 Dose: 0 mls/hr Documented by: [id number] Admin: 10/06/19 11:54 Dose: 999 mls/hr Documented by: [id number] Prochlorperazine (Compazine) 2 mls @ 1 mls/min IV ONE ONE Stop: 10/06/19 11:28 Last Admin: 10/06/19 11:54 Dose: 1 mls/min Documented by: [id number] Acetaminophen (Ofirmev) 1,000 mg in 100 mls @ 400 mls/hr IV NOW STA Stop: 10/06/19 11:41 Last Infusion: 10/06/19 12:09 Dose: 0 mls/hr Documented by: [id number] Admin: 10/06/19 11:54 Dose: 400 mls/hr Documented by: [id number] ECG Rate (beats per minute): 67 Rhythm: normal sinus Code Status & VTE Plan Code Status Full Code VTE Prophylaxis Plan VTE Prophylaxis will be ordered: Yes Supervising Physician Co-Signing Physician Notes Attending addendum The patient was seen and examined in telemetry unit in presence of the This is a 49-year-old male who has significant PMH of COPD, history of TIA, chronic low back pain with history of lumbar laminectomy, depression, GERD, IBS who presents to ED secondary to strokelike symptoms starting at approximately 230 this morning. 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 No focal sensory or motor deficit appreciated. Left foot examination unremarkable Admission labs and imaging studies noted MRI noted to have foci of increased T2 signal within the white matter. Could be secondary to small vessel disease/sequelae of migraine Neurology consulted Agree with assessment and plan as outlined above by ANGELA Mcneil Dr
--- NOTE | 2019-10-06 15:22 | Emergency Department Note ---
Entered by Bree Larios acting as a scribe for Juan José Gomez MD History of Present Illness General Chief complaint: Neuro Symptoms/Deficit Stated complaint: LEFT LEG NOT WORKING CORRECTLY,STROKE SYMPTOMS Time Seen by Provider: 10/06/19 11:06 Source: patient History of Present Illness Onset (ago): hour(s) (0730 this morning) Location: left (leg weakness) Severity: similar to prior episodes Pain Consistency: + other (sudden) Maximum Pain Intensity: 3 Quality: + other (weakness) Associated symptoms: + weakness and + other (left hand and leg weakness, slurred speech); no fever/chills and no syncope Treatments prior to arrival: none The patient is a 49 year old female presenting to the Emergency Department complaining of sudden weakness starting at 0730 this morning. The patient reports that she went to bed at 2300 yesterday and woke up this morning and noticed that her left leg was weak. She states that this made her stumble but that she was able to walk. She explains that she then tried to vegetable picker creamer with her left hand and couldnt pick it up. She describes her left hand weakness and left leg weakness as a numb sensation. She notes that at this time she also slurred her speech. She adds that all of these symptoms only lasted for 2 to 3 minutes and that she isnt currently experiencing them for the exception of left leg weakness. The patient reports that she has a history of complex migraines and usually gets a migraine once per week. She states that she has experienced right sided weakness with these migraines but never left sided weakness. She explains that she woke up in the middle of the night at 0130 from a bad dream and noticed that her speech was slurred but that this resolved after a few bety gloria. 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 Judge neurologist who she follows with for complex migraines. She adds that Dr. Judge told her to come to the Emergency Department to be evaluated. She adds that she took no medications for her symptoms FRUIT OR NUT FARMWORKER. The patient denies recent fevers, chills and syncope. Home Medications Home Medications Medication Instructions Recorded Confirmed Type One-A-Day Women's 50 Plus 1 tab PO HS 12/25/18 10/06/19 History albuterol sulfate 2 puff INHALATION QID PRN 12/25/18 10/06/19 History bupropion HCl [Wellbutrin SR] 200 mg PO BID 12/25/18 10/06/19 History cholecalciferol (vitamin D3) 1,000 unit PO HS 12/25/18 10/06/19 History [Vitamin D3] cyclobenzaprine 10 mg PO HS PRN 12/25/18 10/06/19 History fluticasone propion-salmeterol 1 inh INHALATION QAM 12/25/18 10/06/19 History [Advair Diskus] hydrocodone-acetaminophen 1 tab PO DAILY PRN 12/25/18 10/06/19 History magnesium citrate 120 ml PO DAILY PRN 12/25/18 10/06/19 History polyethylene glycol 3350 17 g PO DAILY PRN 12/25/18 10/06/19 History potassium chloride 10 meq PO BID 12/25/18 10/06/19 History riboflavin (vitamin B2) 400 mg PO QAM 12/25/18 10/06/19 History sennosides [Senna Lax] 2 tab PO HS 12/25/18 10/06/19 History sumatriptan succinate [Imitrex] 100 mg PO DAILY PRN MDD 200 mg 12/25/18 10/06/19 History topiramate [Topamax] 150 mg PO QAM 12/25/18 10/06/19 History umeclidinium 1 inh INHALATION QAM 12/25/18 10/06/19 History zolpidem 10 mg PO HS 12/25/18 10/06/19 History Linzess 290 mcg PO DAILY 07/10/19 10/06/19 History lorazepam 1 mg PO Q6H PRN 07/10/19 10/06/19 History omeprazole 40 mg PO QAM 07/10/19 10/06/19 History topiramate [Topamax] 200 mg PO HS 07/10/19 10/06/19 History aspirin [Ecotrin Low Strength] 81 mg PO QAM 07/26/19 10/06/19 History escitalopram oxalate 10 mg PO QAM 07/26/19 10/06/19 History gabapentin 200 mg PO BID 10/06/19 10/06/19 History gabapentin 600 mg PO HS 10/06/19 10/06/19 History magnesium oxide 400 mg PO HS 10/06/19 10/06/19 History Allergies Allergy/AdvReac Type Severity Reaction Status Date / Time nicotine Allergy Mild NICOTINE Verified 10/06/19 11:53 PATCH-RASH AND EDEMA honey Allergy Unknown RAW Verified 10/06/19 11:53 HONEY-THROAT SWELLING, SOB meperidine Allergy Unknown THROAT Verified 10/06/19 11:53 SWELLED, SOB Past Med/Surg History Medical History COPD with asthma Generalized anxiety disorder (Chronic) IBS (irritable bowel syndrome) (Chronic) Lumbar stenosis with neurogenic claudication (09/02/14) Migraines (Chronic) Surgical History H/O laminectomy L4-S1 2014 Dr. Encinas H/O oophorectomy History of cholecystectomy (Resolved) History of hysterectomy (Resolved) History of tubal ligation (Resolved) Family History Sister Stroke PFO (patent foramen ovale) Grandmother Stroke Social History Preferred Language: Italian Communication Ability: Effective Master Control Technician Required: No Beliefs That Will Affect Care: None Current Living Situation: Spouse Other Information That Helps Us Care for You: No Feels Safe at Home: Yes Safety Concerns: Feels Safe At This Time Smoking Status: Former smoker packs per day: 1 ; Years Smoked: 20 ; Do You Dip or Chew Tobacco: No ; Smoking End Date: 2006 ; Number of Years Since Quit: 15 ; Second Hand Exposure: No ; Tobacco Cessation Education Requested by Patient: No Hx Alcohol Use: No Hx Substance Use: No Review of Systems See HPI for pertinent positives & negatives. and A total of 10 systems reviewed and were otherwise negative Physical Exam Vital Signs Vital Signs - 24 hr 10/06/19 10:56 10/06/19 11:20 10/06/19 11:52 Temperature 36.3 C L Temperature Source Oral Pulse Rate 77 Pulse Rate [Left] 78 Respiratory Rate 16 14 Respiratory Effort / Characteristics Non-Labored Spontaneous Non-Labored Spontaneous Respiratory Depth Normal Blood Pressure 116/81 Blood Pressure [Left Arm] 93/67 L Blood Pressure Mean 92 Blood Pressure Mean [Left Arm] 75 Blood Pressure Position Sitting Blood Pressure Position [Left Arm] Lying Pulse Oximetry 100 100 Oxygen Delivery Method Room Air Room Air Room Air Sepsis Recent Fever Within 48 Hours No Sepsis New/Unexplained Change in Mental Status No Sepsis Action Taken by Nursing No Action Required 10/06/19 12:02 10/06/19 12:45 Temperature Temperature Source Pulse Rate Pulse Rate [Left] 85 63 Respiratory Rate 12 16 Respiratory Effort / Characteristics Non-Labored Spontaneous Non-Labored Spontaneous Respiratory Depth Normal Blood Pressure Blood Pressure [Left Arm] 111/83 94/50 L Blood Pressure Mean Blood Pressure Mean [Left Arm] 92 64 Blood Pressure Position Blood Pressure Position [Left Arm] Lying Lying Pulse Oximetry 100 99 Oxygen Delivery Method Room Air Room Air Sepsis Recent Fever Within 48 Hours Sepsis New/Unexplained Change in Mental Status Sepsis Action Taken by Nursing GENERAL: Awake, alert, well-appearing, in no distress HENT: Normocephalic, atraumatic. Oropharynx with dry mucous membranes and otherwise unremarkable. . EYES: Normal conjunctiva. Sclera non-icteric. EOMI. No nystamgus. PEARRL. NECK: Supple. No nuchal rigidity. FROM. No JVD. RESPIRATORY: CTAB. CARDIAC: Regular rate, normal rhythm. Extremities warm and well perfused. Pulses equal. ABDOMEN: Soft, non-distended. No tenderness to palpation. No rebound or guarding. No masses. RECTAL: Deferred. MUSCULOSKELETAL: Chest examination reveals no tenderness. The back is symmetrical on inspection without obvious abnormality. There is no CVA tenderness to palpation. No joint edema. LOWER EXTREMITIES: Calves are equal size bilaterally and non-tender. No edema. No discoloration. NEURO: Normal sensorium. No sensory or motor deficits noted. Normal cerebellar function including finger to nose, alternating palms and heal to dubose. 5/5 strength. SILT x 4 extremities. SKIN: No rash or jaundice noted. Course Course 1118: The patient was evaluated in room B11B, and a complete history and physical examination were performed. 1232: I reevaluated the patient at this time. 1305: I discussed the patient's case with Denise Osorio PA-C. Dr. Hunt [facility] will evaluate the patient for further management. Administered Medications Bupropion HCl (Wellbutrin-Sr) 200 mg PO [id number] [facility] Stop: 11/05/19 16:59 Last Admin: 10/06/19 17:03 Dose: 200 mg Documented by: [id number] Gabapentin (Neurontin) 600 mg PO [facility] Stop: 11/05/19 20:59 Last Admin: 10/06/19 20:51 Dose: 600 mg Documented by: [id number] Sodium Chloride (Nss 1000ml) 1,000 mls @ 75 mls/hr IV .[id number] JERMAINE Stop: 11/05/19 16:59 Last Admin: 10/06/19 17:02 Dose: 75 mls/hr Documented by: [id number] Magnesium Oxide (Mag-Ox) 400 mg PO [facility] Stop: 11/05/19 20:59 Last Admin: 10/06/19 20:52 Dose: 400 mg Documented by: [id number] Multivitamins (Multivitamin Tab) 1 tab PO [facility] Stop: 11/05/19 20:59 Last Admin: 10/06/19 20:52 Dose: 1 tab Documented by: [id number] Potassium Chloride (Klor-Con M10) 10 meq PO BID [facility] Stop: 11/05/19 20:59 Last Admin: 10/06/19 20:52 Dose: 10 meq Documented by: [id number] Sennosides (Senokot) 17.2 mg PO [facility] Stop: 11/05/19 20:59 Last Admin: 10/06/19 20:51 Dose: 17.2 mg Documented by: [id number] Topiramate (Topamax) 200 mg PO [facility] Stop: 11/05/19 20:59 Last Admin: 10/06/19 20:52 Dose: 200 mg Documented by: [id number] Vitamin D (Vitamin D3) 1,000 units PO [facility] Stop: 11/05/19 20:59 Last Admin: 10/06/19 20:51 Dose: 1,000 units Documented by: [id number] Zolpidem Tartrate (Ambien) 10 mg PO [facility] Stop: 11/05/19 20:59 Last Admin: 10/06/19 20:50 Dose: 10 mg Documented by: [id number] Discontinued Medications Dexamethasone Sodium Phosphate (Decadron Pf) 10 mg IV NOW ONE Stop: 10/06/19 11:28 Last Admin: 10/06/19 11:54 Dose: 10 mg Documented by: [id number] Diphenhydramine HCl (Benadryl) 25 mg IV NOW STA Stop: 10/06/19 11:28 Last Admin: 10/06/19 11:54 Dose: 25 mg Documented by: [id number] Sodium Chloride (Nss 1000ml) 2,000 mls @ 999 mls/hr IV .Q2H1M ONE Stop: 10/06/19 13:20 Last Infusion: 10/06/19 13:56 Dose: 0 mls/hr Documented by: [id number] Admin: 10/06/19 11:54 Dose: 999 mls/hr Documented by: [id number] Prochlorperazine (Compazine) 2 mls @ 1 mls/min IV ONE ONE Stop: 10/06/19 11:28 Last Admin: 10/06/19 11:54 Dose: 1 mls/min Documented by: [id number] Acetaminophen (Ofirmev) 1,000 mg in 100 mls @ 400 mls/hr IV NOW STA Stop: 10/06/19 11:41 Last Infusion: 10/06/19 12:09 Dose: 0 mls/hr Documented by: [id number] Admin: 10/06/19 11:54 Dose: 400 mls/hr Documented by: [id number] Ioversol (Optiray 320 125ml) 120 ml IV ONCE PRN PRN Reason: Interaction Checking Stop: 10/10/19 12:32 Last Admin: 10/06/19 12:33 Dose: 120 ml Documented by: [id number] Medical Decision Making Differential Diagnosis Differential Diagnosis includes but is not limited to dehydration, stroke, anemia, hypoglycemia, hyponatremia, hypernatremia, urinary tract infection, pneumonia, bronchitis, sepsis, gastroenteritis, additional abdominal pathology, metabolic abnormalities and infections. Medical Records Attestation: I reviewed the patient's medical records. Home Medications Current Medication List: was personally reviewed by me Laboratory Data Attestation: I reviewed the patient's lab results. Result diagrams: 10/06/19 11:20 10/06/19 11:20 Lab Results 10/06/19 10/06/19 10/06/19 Range/Units 11:15 11:16 11:20 WBC 5.68 (4.8-10.8) K/uL RBC 4.13 L (4.2-5.4) M/uL Hgb 12.8 (12.0-16.0) g/dL Hct 38.7 (37-47) % MCV 93.7 (80-100) fL MCH 31.0 (25-34) pg MCHC 33.1 (32-36) g/dL RDW Std Deviation 44.9 (36.4-46.3) fL RDW Coeff of Audie 13.1 (11.5-14.5) % Plt Count 322 (130-400) K/uL MPV 9.9 (7.4-10.4) fL Immature Gran % (Auto) 0.2 % Neut % (Auto) 49.9 % Lymph % (Auto) 37.1 % Creek % (Auto) 6.3 % Eos % (Auto) 5.8 % Baso % (Auto) 0.7 % Immature Gran # (Auto) 0.01 (0.00-0.02) K/uL Neut # (Auto) 2.83 (1.4-6.5) K/uL Lymph # (Auto) 2.11 (1.2-3.4) K/uL Creek # (Auto) 0.36 (0.11-0.59) K/uL Eos # (Auto) 0.33 (0-0.5) K/uL Baso # (Auto) 0.04 (0-0.2) K/uL PT (9.0-12.0) Seconds INR (0.9-1.1) APTT (21.0-31.0) Seconds PTT Ratio Sodium (136-145) mmol/L Potassium (3.5-5.1) mmol/L Chloride (98-107) mmol/L Carbon Dioxide (21-32) mmol/L Anion Gap (3-11) BUN (7-18) mg/dl Creatinine (0.6-1.2) mg/dl Est Cr Clr Drug Dosing ml/min Est GFR ( Amer) Est GFR (Non-Af Amer) BUN/Creatinine Ratio (10-20) Glucose (70-99) mg/dl POC Glucose 83 (70-99) mg/dl Calcium (8.5-10.1) mg/dl Phosphorus (2.5-4.9) mg/dl Magnesium (1.8-2.4) mg/dl Total Bilirubin (0.2-1) mg/dl AST (15-37) U/L ALT (12-78) U/L Alkaline Phosphatase (45-117) U/L Troponin I (0-0.045) ng/ml Total Protein (6.4-8.2) gm/dl Albumin (3.4-5.0) gm/dl Globulin (2.5-4.0) gm/dl Albumin/Globulin Ratio (0.9-2) TSH (0.300-4.500) uIu/ml Urine Color Yellow Urine Appearance Clear (Clear) Urine pH 6.5 (4.5-7.5) Ur Specific Hope 1.007 (1.000-1.030) Urine Protein Negative (Negative) Urine Glucose (UA) Negative (Negative) Urine Ketones Negative (Negative) Urine Blood Negative (Negative) Urine Nitrite Negative (Negative) Urine Bilirubin Negative (Negative) Urine Urobilinogen Negative (Negative) Ur Leukocyte Esterase Negative (Negative) Blood Type Antibody Screen 10/06/19 10/06/19 10/06/19 Range/Units 11:20 11:20 11:34 WBC (4.8-10.8) K/uL RBC (4.2-5.4) M/uL Hgb (12.0-16.0) g/dL Hct (37-47) % MCV (80-100) fL MCH (25-34) pg MCHC (32-36) g/dL RDW Std Deviation (36.4-46.3) fL RDW Coeff of Audie (11.5-14.5) % Plt Count (130-400) K/uL MPV (7.4-10.4) fL Immature Gran % (Auto) % Neut % (Auto) % Lymph % (Auto) % Creek % (Auto) % Eos % (Auto) % Baso % (Auto) % Immature Gran # (Auto) (0.00-0.02) K/uL Neut # (Auto) (1.4-6.5) K/uL Lymph # (Auto) (1.2-3.4) K/uL Creek # (Auto) (0.11-0.59) K/uL Eos # (Auto) (0-0.5) K/uL Baso # (Auto) (0-0.2) K/uL PT 10.7 (9.0-12.0) Seconds INR 1.0 (0.9-1.1) APTT 25.8 (21.0-31.0) Seconds PTT Ratio 1.0 Sodium 140 (136-145) mmol/L Potassium 3.6 (3.5-5.1) mmol/L Chloride 110 H (98-107) mmol/L Carbon Dioxide 25 (21-32) mmol/L Anion Gap 5.0 (3-11) BUN 13 (7-18) mg/dl Creatinine 1.21 H (0.6-1.2) mg/dl Est Cr Clr Drug Dosing 51.2 ml/min Est GFR ( Amer) 61.3 Est GFR (Non-Af Amer) 52.9 BUN/Creatinine Ratio 10.3 (10-20) Glucose 76 (70-99) mg/dl POC Glucose (70-99) mg/dl Calcium 8.8 (8.5-10.1) mg/dl Phosphorus 3.3 (2.5-4.9) mg/dl Magnesium 2.4 (1.8-2.4) mg/dl Total Bilirubin 0.4 (0.2-1) mg/dl AST 15 (15-37) U/L ALT 22 (12-78) U/L Alkaline Phosphatase 104 (45-117) U/L Troponin I < 0.015 (0-0.045) ng/ml Total Protein 8.0 (6.4-8.2) gm/dl Albumin 4.2 (3.4-5.0) gm/dl Globulin 3.8 (2.5-4.0) gm/dl Albumin/Globulin Ratio 1.1 (0.9-2) TSH 2.250 (0.300-4.500) uIu/ml Urine Color Urine Appearance (Clear) Urine pH (4.5-7.5) Ur Specific Hope (1.000-1.030) Urine Protein (Negative) Urine Glucose (UA) (Negative) Urine Ketones (Negative) Urine Blood (Negative) Urine Nitrite (Negative) Urine Bilirubin (Negative) Urine Urobilinogen (Negative) Ur Leukocyte Esterase (Negative) Blood Type O Positive Antibody Screen NEGATIVE Imaging Data Radiologist's Impression: Radiology results as stated below per my review and the radiologist's interpretation: HEAD & NECK CTA HISTORY: left sided numbness TECHNIQUE: Multiaxial CT images of the head were performed following the intravenous administration of contrast to evaluate the major cerebral vessels. Multiaxial CT images of the neck were also performed following the intravenous administration of contrast to evaluate the major cervical vessels. Maximum intensity projection images were also obtained. A dose lowering technique was utilized adhering to the principles of ALARA. COMPARISON: Head and neck CTA 07/11/2019. FINDINGS: There is no mass, hematoma, midline shift, or acute infarct. Visualized intracranial internal carotid arteries, distal vertebral arteries, and basilar artery are widely patent. There is no significant stenosis, occlusion, or aneurysm seen within the bilateral ACAs, MCAs, or scientist. The major dural venous sinuses are patent. The aortic arch and proximal great vessels are widely patent. There is no significant stenosis, occlusion, or dissection identified within the bilateral common carotid, internal carotid, or vertebral arteries. IMPRESSION: 1. No significant stenosis, occlusion, or aneurysm within the ambler of Hassan. 2. No significant stenosis, occlusion, or dissection identified within the carotid or vertebral arteries. ACT 112: Negative or not required by law. Electronically signed by: Afshin Figueredo M.D. 10/06/2019 12:[address] head/brain wo con CLINICAL HISTORY: Stroke evaluation WEAKNESS. LEFT-SIDED NUMBNESS. SUSPECTED STROKE. COMPARISON STUDY: 07/26/2019 TECHNIQUE: Axial CT of the brain is performed from the vertex to the skull base. IV contrast was not administered for this examination. A dose lowering technique was utilized adhering to the principles of ALARA. CT DOSE: 1069.30 mGy.cm FINDINGS: No intra or extra-axial mass lesions are visualized. There is no CT evidence of acute cortical infarction. There is no evidence of midline shift. There is no acute hemorrhage. No calvarial fractures are visualized. 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 There is no evidence of pathologic ventricular dilatation. There is no evidence of acute sinusitis IMPRESSION: No acute intracranial findings ACT 112: Negative or not required by law. Electronically signed by: Mauricio Dow M.D. 10/06/2019 12:41 PM ECG Data Attestation: I personally reviewed and interpreted this ECG as follows: Indication: + weakness Rate (beats per minute): 67 Rhythm: + sinus with SA ECG Intervals/blocks: + Normal QRS (QRS 84.) and + Normal QT-c (QT-c 431.) ECG ST segments: no ST depression and no ST elevation ECG Findings: no PACs and no PVCs Blood Pressure Blood Pressure Findings: Low blood pressure Blood Pressure Disposition: further management by hospitalist MDM Narrative The patient is a pleasant 49-year-old woman with a past medical history of migraine headaches and complex migraines, anxiety, IBS who presents emergency department for evaluation of strokelike symptoms with last known well occurring at 11 PM last night prior to going to bed and then woke up around 2:30 AM when she was having a dream where she was talking but then became awake and felt as though she was slurring her words but then went back to sleep and when she awoke at 7:30 AM her symptoms continued and worsened with left-sided numbness and weakness which lasted approximately 2 minutes per HPI. Patient and her report that they decided to wait to be evaluated by the patient's neurologist on her scheduled appointment today. She was seen by her neurologist, Dr. Barnes and referred to the emergency department. Arrival the patient is in no acute distress, afebrile stable vital signs. At this time she has no objective focal neuro deficits. EKG without overt acute ischemia. WBC, H/H and platelets within normal limits. Chemistry without acidosis. Cr 1.2 slightly increased from prior values consistent with the patient's clinically dry appearance. Electrolytes and LFTs unremarkable. Troponin negative/undetectable. TSH within normal limits. UA negative for infection. CTA of the head and neck was performed and negative for ischemia, ICH or abrupt large vessel cutoffs or severe narrowing. Findings reviewed with patient. She was agreeable with plan for admission. Case was discussed with Charly Araujo PA-C, who evaluate the patient for admission. Impression & Plan Stroke-like symptom, History of migraine, Dehydration, Acute renal insufficiency Discharge Plan Visit Data *Final* Discharge Date/Time: 10/06/19 14:09 Chief Complaint: Neuro Symptoms/Deficit Stated Complaint: LEFT LEG NOT WORKING CORRECTLY,STROKE SYMPTOMS ED Provider: Juan José Gomez Discharge Problem: Stroke-like symptom, History of migraine, Dehydration, Acute renal insufficiency Patient Disposition: Admitted As Inpatient Discharge Instructions Interventions: ED Discharge Assessment Last Done: 10/06/19 14:09 The scribe's documentation has been prepared under my direction and personally reviewed by me in its entirety. I confirm that the note above accurately refle cts all work, treatment, procedures, and medical decision making performed by me.
[2019-10-06] MEDS ORDERED: ONDANSETRON INJ 2 MG/ML 2 ML VIAL IV PRN (15:38)
[2019-10-06] MEDS ORDERED: LORazepam 1 MG TAB PO PRN (15:38)
[2019-10-06] MEDS ORDERED: PHARMACIST DISCHARGE MED REC CONSULT PRN (15:38)
[2019-10-06] MEDS ORDERED: ACETAMINOPHEN 325 MG TAB PO PRN (15:38)
[2019-10-06] MEDS ORDERED: ALUMINUM/MAGNESIUM SUSP 30 ML UDC PO PRN (15:38)
--- NOTE | 2019-10-06 15:41 | Magnetic Resonance Report ---
MRI OF THE BRAIN WITHOUT CONTRAST CLINICAL HISTORY: Left-sided numbness and weakness. History of right drains. Slurred speech. COMPARISON STUDY: Noncontrast head CT dated 10/06/2019, MRI the brain dated 07/09/2019 FINDINGS: Sagittal T1, axial diffusion, proton density and T2 weighted axial, coronal FLAIR, and axial T1-weigh april images were acquired. There is a giant cisterna magna versus retrocerebellar arachnoid cyst. This remain stable. Axial diffusion-weighted images reveal no evidence of acute or subacute infarction. There is no evidence of ventricular dilatation. Proton density T2-weighted and FLAIR images reveal scattered bilateral foci of increased T2 signal wi thin the white matter. The findings are nonspecific and could represent the sequela of migraines. The foci could also be on a small vessel ischemic basis or secondary to a demyelinating process. There are no abnormal flow voids. IMPRESSION: 1. 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 No evidence of acute or subacute infarction 3. Stable scattered bilateral foci of increased T2 signal within the white matter. Diagnostic conside rations include small vessel disease, the sequela of migraines, or less likely demyelinating process. ACT 112: Negative or not required by law. Electronically signed by: Mauricio Dow M.D. 10/06/2019 3:40 PM
[2019-10-06] MEDS: SODIUM CHLORIDE 0.9% 1000ML 1,000 ML IV SCH (17:02)
[2019-10-06] MEDS: BuPROPion SR 100 MG TABCR PO SCH (17:03)
[2019-10-06] MEDS: POTASSIUM CHLORIDE 10 MEQ TABCR PO SCH (20:52)
[2019-10-06] MEDS ORDERED: MULTIVITAMIN TAB PO SCH (21:00)
[2019-10-06] MEDS ORDERED: ZOLPIDEM TARTRATE 10 MG TAB PO SCH (21:00)
[2019-10-06] MEDS ORDERED: CHOLECALCIFEROL 1,000 UNITS 25 MCG TAB PO SCH (21:00)
[2019-10-06] MEDS ORDERED: SENNA 8.6 MG TAB PO SCH (21:00)
[2019-10-06] MEDS ORDERED: GABAPENTIN 600 MG TAB PO SCH (21:00)
[2019-10-06] MEDS ORDERED: TOPIRAMATE 100 MG TAB PO SCH (21:00)
[2019-10-06] MEDS ORDERED: MAGNESIUM OXIDE 400 MG TAB PO SCH (21:00)
[2019-10-06] MEDS ORDERED: ALBUTEROL HFA 8 GM INHALER INH PRN (22:06)
[2019-10-06] MEDS: LINZESS: ORDER AWAITING ACTION SCH (23:40)
[2019-10-07 05:53] LABS: Basophils # (auto) 0.02 K/uL (0-0.2); Basophils % (auto) 0.2 %; Eosinophils # (auto) 0.12 K/uL (0-0.5); Eosinophils % (auto) 1.5 %; Hemoglobin 10.5 g/dL (12.0-16.0); Immature Granulocytes # (auto) 0.01 K/uL (0.00-0.02); Immature Granulocytes % (auto) 0.1 %; Lymphocytes # (auto) 2.52 K/uL (1.2-3.4); Lymphocytes % (auto) 31.5 %; Mean Corpuscular Hemoglobin 30.4 pg (25-34); Mean Corpuscular Hgb Conc 32.8 g/dL (32-36); Mean Corpuscular Volume 92.8 fL (80-100); Mean Platelet Volume 9.9 fL (7.4-10.4); Monocytes # (auto) 0.63 K/uL (0.11-0.59); Monocytes % (auto) 7.9 %; Neutrophils # (auto) 4.71 K/uL (1.4-6.5); Neutrophils % (auto) 58.8 %; Platelet Count 237 K/uL (130-400); RDW Coefficient of Variation 13.1 % (11.5-14.5); RDW Standard Deviation 44.4 fL (36.4-46.3); Red Blood Count 3.45 M/uL (4.2-5.4); White Blood Count 8.01 K/uL (4.8-10.8)
--- NOTE | 2019-10-07 06:09 | Electrocardiogram Report ---
Test Reason : Blood Pressure : / mmHG Vent. Rate : 067 BPM Atrial Rate : 067 BPM P-R Int : 158 ms QRS Dur : 084 ms QT Int : 408 ms P-R-T Axes : 054 037 043 degrees QTc Int : 431 ms Normal sinus rhythm with sinus arrhythmia Normal ECG When compared with ECG of 26-JUL-2019 12:06, No significant change was found Confirmed by Odilon Forrester ([id number]) on 10/07/2019 6:08:56 AM Referred By: Confirmed By:Odilon Forrester
[2019-10-07 06:26] LABS: BUN Creatinine Ratio 11.6 (10-20); Calcium 8.1 mg/dl (8.5-10.1); Creatinine Clr Calc Pharmacy 69.4 ml/min; Est GFR (African American) 86.5; Est GFR (Non-African American) 74.6; Potassium 3.4 mmol/L (3.5-5.1)
[2019-10-07 06:33] LABS: Estimated Average Glucose 103 mg/dl; Hemoglobin A1C 5.2 % (4.5-5.6)
[2019-10-07] MEDS: GABAPENTIN 100 MG CAP PO SCH ×2 (06:40→11:09)
[2019-10-07] MEDS ORDERED: ESCITALOPRAM OXALATE 10 MG TAB PO SCH (09:00)
[2019-10-07] MEDS ORDERED: PANTOprazole 40 MG TAB PO SCH (09:00)
[2019-10-07] MEDS ORDERED: NON-FORMULARY MEDICATION (Riboflavin (Vitamin B2) 400 MG) PO SCH (09:00)
[2019-10-07] MEDS ORDERED: TOPIRAMATE 50 MG TAB PO SCH (09:00)
[2019-10-07] MEDS ORDERED: UMECLIDINIUM BROMIDE 62.5MCG/BLISTER 7 PUFFS/INHALER INH SCH (09:00)
[2019-10-07] MEDS ORDERED: FLUTICASONE/SALMETEROL 250/50 (ADVAIR) 14 PUFF/1 INHALER INH SCH (09:00)
[2019-10-07] MEDS ORDERED: FLUTICASONE/VILANTEROL 200/25MCG 14 PUFFS/INHALER INH SCH (09:00)
[2019-10-07] MEDS ORDERED: ASPIRIN 81 MG ECTAB PO SCH (09:00)
[2019-10-07] MEDS: POTASSIUM CHLORIDE 10 MEQ TABCR PO SCH (09:13)
[2019-10-07] MEDS: BuPROPion SR 100 MG TABCR PO SCH ×2 (09:14→17:13)
[2019-10-07] MEDS: LINZESS: ORDER AWAITING ACTION SCH ×2 (09:16→15:54)
[2019-10-07] MEDS ORDERED: POTASSIUM CHLORIDE 20 MEQ TABCR PO STA (09:21)
[2019-10-07] MEDS: SODIUM CHLORIDE 0.9% 1000ML 1,000 ML IV SCH (09:44)
--- NOTE | 2019-10-07 14:24 | Neurology Consultation ---
Date of Consultation October 07, 2019 Assessment & Plan (1) Stroke-like symptom: 1. MRI brain - no acute findings 2. CTA head/neck- no significant stenosis or narrowing 3. optimize HTN HLD, LDL <70 4. PT/OT for discharge needs 5. Continue ASA 6. gabepentin 200 mg BID works better as a TID medication may try 100 mg am 100 mg midday and 200 mg hs 8. EEG- Normal follow up with Dr Rodriguez in 4-6 weeks neurology (2) History of migraine: Supervising Physician Co-Signing Physician Notes PAtient was seen and examined. On examine weakness has resolved. His of similar symptoms in the past with Negative stroke work up. Reports left sided weakness lasted only 2-3 minutes. Blood pressures normotensive. MRI reviewed and Negative for ischemic stroke. T2 flair signal changes are non specific and commonly seen in patient with frequent migraines. Routine EEG was Normal. No epileptiform activity. Low suspicion for TIA. 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 Patient has daily headache with 1 migraine per week. Recommend to continue ASA 81 mg daily. Ok to discharge from Neurology standpoint. History of Present Illness Reason for Consultation: stroke like symptoms sent from Dr Rodriguez. Requesting Physician: Travis Zarate MD Attending Physician: Travis Zarate MD History of Present Illness Ana is an 49 year old female with PMH- COPD, history of TIA, chronic low back pain with history of lumbar laminectomy, depression, GERD, IBS who presented to [facility] with strokelike symptoms, She said she woke up early this morning after having a dream and felt like she was sleep talking and felt like her speech was slurred. She went back to sleep but when she woke she was still having slurred speech. When she went to talk to her her noted that she was repeating herself saying, "no no no," and speech was slurred and it lasted about 3 minutes. She did let the dog out earlier and was thought to be well then. She had a lumbar laminectomy and ongoing R foot weakness. She was first seen by Dr. Rodriguez who recommended she be seen in ED to be admitted for MRI and EEG work-up. She was hospitalized in 06/2019 for similar symptoms after syncopal episode. It was also reported prior to the syncopal episode of dysarthria-like symptoms. Her work up at that time inclueded MRI, EEG, CT head, CTA of head and neck which are unremarkable. [place] which was reported as normal and hyper coag work up which was unremarkable from what I can see including factor V, prothrombin, cardiolipin antib. She recently stopped her plavix and was just on aspirin at the time of the occurrence. denies CP, SOB, abdominal pain one sided weakness, numbness tingling, vision changes swallowing issues, new bowel or bladder symptoms, N, V. She does states she has been fe eling week recently Allergies Allergy/AdvReac Type Severity Reaction Status Date / Time nicotine Allergy Mild NICOTINE Verified 10/06/19 11:53 PATCH-RASH AND EDEMA honey Allergy Unknown RAW Verified 10/06/19 11:53 HONEY-THROAT SWELLING, SOB meperidine Allergy Unknown THROAT Verified 10/06/19 11:53 SWELLED, SOB Home Medications Home Medications Medication Instructions Recorded Confirmed Type One-A-Day Women's 50 Plus 1 tab PO HS 12/25/18 10/06/19 History albuterol sulfate 2 puff INHALATION QID PRN 12/25/18 10/06/19 History bupropion HCl [Wellbutrin SR] 200 mg PO BID 12/25/18 10/06/19 History cholecalciferol (vitamin D3) 1,000 unit PO HS 12/25/18 10/06/19 History [Vitamin D3] cyclobenzaprine 10 mg PO HS PRN 12/25/18 10/06/19 History fluticasone propion-salmeterol 1 inh INHALATION QAM 12/25/18 10/06/19 History [Advair Diskus] hydrocodone-acetaminophen 1 tab PO DAILY PRN 12/25/18 10/06/19 History magnesium citrate 120 ml PO DAILY PRN 12/25/18 10/06/19 History polyethylene glycol 3350 17 g PO DAILY PRN 12/25/18 10/06/19 History potassium chloride 10 meq PO BID 12/25/18 10/06/19 History riboflavin (vitamin B2) 400 mg PO QAM 12/25/18 10/06/19 History sennosides [Senna Lax] 2 tab PO HS 12/25/18 10/06/19 History sumatriptan succinate [Imitrex] 100 mg PO DAILY PRN MDD 200 mg 12/25/18 10/06/19 History topiramate [Topamax] 150 mg PO QAM 12/25/18 10/06/19 History umeclidinium 1 inh INHALATION QAM 12/25/18 10/06/19 History zolpidem 10 mg PO HS 12/25/18 10/06/19 History Linzess 290 mcg PO DAILY 07/10/19 10/06/19 History lorazepam 1 mg PO Q6H PRN 07/10/19 10/06/19 History omeprazole 40 mg PO QAM 07/10/19 10/06/19 History topiramate [Topamax] 200 mg PO HS 07/10/19 10/06/19 History aspirin [Ecotrin Low Strength] 81 mg PO QAM 07/26/19 10/06/19 History escitalopram oxalate 10 mg PO QAM 07/26/19 10/06/19 History gabapentin 200 mg PO BID 10/06/19 10/06/19 History gabapentin 600 mg PO HS 10/06/19 10/06/19 History magnesium oxide 400 mg PO HS 10/06/19 10/06/19 History Patient History Medical History COPD with asthma Generalized anxiety disorder (Chronic) IBS (irritable bowel syndrome) (Chronic) Lumbar stenosis with neurogenic claudication (09/02/14) Migraines (Chronic) Surgical History H/O laminectomy L4-S1 2014 Dr. Encinas H/O oophorectomy History of cholecystectomy (Resolved) History of hysterectomy (Resolved) History of tubal ligation (Resolved) Family History Sister Stroke PFO (patent foramen ovale) Grandmother Stroke Social History Preferred Language: Ukrainian Communication Ability: Effective Event Specialist Required: No Beliefs That Will Affect Care: None Current Living Situation: Spouse Other Information That Helps Us Care for You: No Feels Safe at Home: Yes Safety Concerns: Feels Safe At This Time Smoking Status: Former smoker packs per day: 1 ; Years Smoked: 20 ; Do You Dip or Chew Tobacco: No ; Smoking End Date: 2006 ; Number of Years Since Quit: 15 ; Second Hand Exposure: No ; Tobacco Cessation Education Requested by Patient: No Hx Alcohol Use: No Hx Substance Use: No Physical Exam Physical Exam: Physical Exam: Constitutional: appearance nourished, healthy and normal Ears, Nose, Mouth and Throat: mucous membranes moist, no injection and skin normal, eyes normal Cardiovascular: normal S-1 and S-2 and regular rate and rhythm Respiratory: course breath sounds Musculoskeletal: no peripheral edema Skin: no stigmata of neurocutaneous disease noted and normal and intact Eyes: extraocular muscles intact (EOMI) and pupils equal, round and reactive to light (PERRL) NEUROLOGIC EXAMINATION: Mental status: Alert and interactive Oriented to full date and location Oriented to person Speech fluent with no evidence of aphasia Cranial Nerves smile eye brow raise symmetric Reflexes: Deep tendon reflexes were symmetrical and graded 2/5. Sensory: intact to light and cool touch Coordination: finger to nose no bipass Gait/Stance: Posture normal. Gait normal: with steady with steps, base, turning, heel and toe walking and tandem gait. Motor: Negative for pronator drift of out stretched arms with eyes closed. 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 bilaterally 5/5, hip flex plantar flex ext 5/5 bilaterally Results & Data Vital Signs (Past 12 Hours) Vital Signs Temp Pulse Resp BP Pulse Ox 10/07/19 10:47 36.5 C 77 18 94/55 L 99 10/07/19 07:29 36.8 C 70 16 103/59 L 97 10/07/19 04:51 36.5 C 75 16 99/53 L 96 Laboratory Results Abnormal lab results 10/07/19 10/07/19 Range/Units 05:15 05:15 RBC 3.45 L (4.2-5.4) M/uL Hgb 10.5 L (12.0-16.0) g/dL Hct 32.0 L (37-47) % [place] # (Auto) 0.63 H (0.11-0.59) K/uL Potassium 3.4 L (3.5-5.1) mmol/L Chloride 116 H (98-107) mmol/L Calcium 8.1 L (8.5-10.1) mg/dl Diagnostic Findings CT head-No acute intracranial findings CTA head/neck-No significant stenosis, occlusion, or aneurysm within the [place]. No significant stenosis, occlusion, or dissection identified within the carotid or vertebral arteries. 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 Diagnostic considerations include small vessel disease, the sequela of migraines, or less likely demyelinating process.
--- NOTE | 2019-10-07 17:30 | Electroencephalogram ---
EEG Procedure Note Date of Service October 07, 2019 Start / End Times Start Time: 08:18 End Time: 08:[address] Hunt History A 49 year old woman with intermittent left sided weakness. EEG performed for evaluation of epileptiform activity. Home Medication List Home Medications Medication Instructions Recorded Confirmed Type One-A-Day Women's 50 Plus 1 tab PO HS 12/25/18 10/06/19 History albuterol sulfate 2 puff INHALATION QID PRN 12/25/18 10/06/19 History bupropion HCl [Wellbutrin SR] 200 mg PO BID 12/25/18 10/06/19 History cholecalciferol (vitamin D3) 1,000 unit PO HS 12/25/18 10/06/19 History [Vitamin D3] cyclobenzaprine 10 mg PO HS PRN 12/25/18 10/06/19 History fluticasone propion-salmeterol 1 inh INHALATION QAM 12/25/18 10/06/19 History [Advair Diskus] hydrocodone-acetaminophen 1 tab PO DAILY PRN 12/25/18 10/06/19 History magnesium citrate 120 ml PO DAILY PRN 12/25/18 10/06/19 History polyethylene glycol 3350 17 g PO DAILY PRN 12/25/18 10/06/19 History potassium chloride 10 meq PO BID 12/25/18 10/06/19 History riboflavin (vitamin B2) 400 mg PO QAM 12/25/18 10/06/19 History sennosides [Senna Lax] 2 tab PO HS 12/25/18 10/06/19 History sumatriptan succinate [Imitrex] 100 mg PO DAILY PRN MDD 200 mg 12/25/18 10/06/19 History topiramate [Topamax] 150 mg PO QAM 12/25/18 10/06/19 History umeclidinium 1 inh INHALATION QAM 12/25/18 10/06/19 History zolpidem 10 mg PO HS 12/25/18 10/06/19 History Linzess 290 mcg PO DAILY 07/10/19 10/06/19 History lorazepam 1 mg PO Q6H PRN 07/10/19 10/06/19 History omeprazole 40 mg PO QAM 07/10/19 10/06/19 History topiramate [Topamax] 200 mg PO HS 07/10/19 10/06/19 History aspirin [Ecotrin Low Strength] 81 mg PO QAM 07/26/19 10/06/19 History escitalopram oxalate 10 mg PO QAM 07/26/19 10/06/19 History gabapentin 200 mg PO BID 10/06/19 10/06/19 History gabapentin 600 mg PO HS 10/06/19 10/06/19 History magnesium oxide 400 mg PO HS 10/06/19 10/06/19 History Inpatient Medication List Aspirin (Ecotrin Ectab) 81 mg PO QAM [facility] Stop: 11/06/19 08:59 Last Admin: 10/07/19 09:14 Dose: 81 mg Documented by: [id number] Bupropion HCl (Wellbutrin-Sr) 200 mg PO BID17 [facility] Stop: 11/05/19 16:59 Last Admin: 10/07/19 17:13 Dose: 200 mg Documented by: [id number] Admin: 10/07/19 09:14 Dose: 200 mg Documented by: [id number] Admin: 10/06/19 17:03 Dose: 200 mg Documented by: [id number] Escitalopram Oxalate (Lexapro Tab) 10 mg PO QAM [facility] Stop: 11/06/19 08:59 Last Admin: 10/06/19 23:21 Dose: 10 mg Documented by: [id number] Fluticasone/Vilanterol (Breo Ellipta 200/25 Mcg Inh) 1 puffs INH DAILY [facility] Stop: 11/06/19 08:59 Last Admin: 10/07/19 09:15 Dose: 1 puffs Documented by: [id number] Gabapentin (Neurontin) 600 mg PO [facility] Stop: 11/05/19 20:59 Last Admin: 10/06/19 20:51 Dose: 600 mg Documented by: [id number] Gabapentin (Neurontin) 200 mg PO BID@0700,1200 [facility] Stop: 11/06/19 06:59 Last Admin: 10/07/19 11:09 Dose: 200 mg Documented by: [id number] Admin: 10/07/19 06:40 Dose: 200 mg Documented by: [id number] Sodium Chloride (Nss 1000ml) 1,000 mls @ 75 mls/hr IV .[id number] [facility] Stop: 11/05/19 16:59 Last Admin: 10/07/19 09:44 Dose: Not Given Documented by: [id number] Infusion: 10/07/19 08:00 Dose: 0 mls/hr Documented by: [id number] Admin: 10/06/19 17:02 Dose: 75 mls/hr Documented by: [id number] Magnesium Oxide (Mag-Ox) 400 mg PO [facility] Stop: 11/05/19 20:59 Last Admin: 10/06/19 20:52 Dose: 400 mg Documented by: [id number] Miscellaneous (Order Awaiting Action) 1 ea N/A QS [facility] Stop: 11/06/19 00:00 Last Admin: 10/07/19 15:54 Dose: Not Given Documented by: [id number] Admin: 10/07/19 09:16 Dose: Not Given Documented by: [id number] Admin: 10/06/19 23:40 Dose: Not Given Documented by: [id number] Multivitamins (Multivitamin Tab) 1 tab PO [facility] Stop: 11/05/19 20:59 Last Admin: 10/06/19 20:52 Dose: 1 tab Documented by: [id number] Pantoprazole Sodium (Protonix) 40 mg PO [facility] Stop: 11/06/19 08:59 Last Admin: 10/07/19 06:41 Dose: 40 mg Documented by: [id number] Potassium Chloride (Klor-Con M10) 10 meq PO BID [facility] Stop: 11/05/19 20:59 Last Admin: 10/07/19 09:13 Dose: 10 meq Documented by: [id number] Admin: 10/06/19 20:52 Dose: 10 meq Documented by: [id number] Sennosides (Senokot) 17.2 mg PO [facility] Stop: 11/05/19 20:59 Last Admin: 10/06/19 20:51 Dose: 17.2 mg Documented by: [id number] [facility]) [facility] [place]: 11/06/19 08:59 Last Admin: 10/07/19 09:14 Dose: 150 mg Documented by: [id number] Topiramate (Topamax) 200 mg PO [facility] Stop: 11/05/19 20:59 Last Admin: 10/06/19 20:52 Dose: 200 mg Documented by: [id number] Umeclidinium [place] (Incruse Ellipta) [facility] puffs [facility] Stop: 11/06/19 08:59 Last Admin: 10/07/19 09:15 Dose: 1 puffs Documented by: [id number] Vitamin D (Vitamin D3) 1,000 units PO [facility] Stop: 11/05/19 20:59 Last Admin: 10/06/19 20:51 Dose: 1,000 units Documented by: [id number] Zolpidem Tartrate (Ambien) 10 mg PO HS [facility] Stop: 11/05/19 20:59 Last Admin: 10/06/19 20:50 Dose: 10 mg Documented by: [id number] Discontinued Medications Dexamethasone Sodium Phosphate (Decadron Pf) 10 mg IV NOW ONE Stop: 10/06/19 11:28 Last Admin: 10/06/19 11:54 Dose: 10 mg Documented by: [id number] Diphenhydramine HCl (Benadryl) 25 mg IV NOW STA Stop: 10/06/19 11:28 Last Admin: 10/06/19 11:54 Dose: 25 mg Documented by: [id number] Sodium Chloride (Nss 1000ml) 2,000 mls @ 999 mls/hr IV .Q2H1M ONE Stop: 10/06/19 13:20 Last Infusion: 10/06/19 13:56 Dose: 0 mls/hr Documented by: [id number] Admin: 10/06/19 11:54 Dose: 999 mls/hr Documented by: [id number] Prochlorperazine (Compazine) 2 mls @ 1 mls/min IV ONE ONE Stop: 10/06/19 11:28 Last Admin: 10/06/19 11:54 Dose: 1 mls/min Documented by: [id number] Acetaminophen (Ofirmev) 1,000 mg in 100 mls @ 400 mls/hr IV NOW STA Stop: 10/06/19 11:41 Last Infusion: 10/06/19 12:09 Dose: 0 mls/hr Documented by: [id number] Admin: 10/06/19 11:54 Dose: 400 mls/hr Documented by: [id number] Ioversol (Optiray 320 125ml) 120 ml IV ONCE PRN PRN Reason: Interaction Checking Stop: 10/10/19 12:32 Last Admin: 10/06/19 12:33 Dose: 120 ml Documented by: [id number] Potassium Chloride (Klor-Con M20) 20 meq PO NOW STA Stop: 10/07/19 09:22 Last Admin: 10/07/19 11:09 Dose: 20 meq Documented by: [id number] Description This is a 21 electrode EEG with a single channel dedicated to limited EKG. The electrodes were placed in accordance with the International 10-20 system. REPORT: At the onset of the EEG, the patient is awake. The background activity consist of 10-11 Hz, persistent, posteriorly dominant, moderate amplitude, symmetric and rhythmic activity that is reactive to eye opening. Anteriorly, it consist of a mixture of low voltage indeterminate activity and 15-25 Hz, persistent, low amplitude, symmetric and rhythmic activity. Stepwise intermittent photic stimulation does not induce any abnormalities. Drowsiness is characterized by low amplitude mixed frequency activity, roving eye movements, and decreased eye blinking and muscle artifact. IMPRESSION: This is a normal awake and drowsy EEG. There is no evidence of focal slowing or epileptiform activity.
[2019-10-07] MEDS ORDERED: STROKE PATIENT DISCHARGE STA (17:39)
--- NOTE | 2019-10-07 17:41 | Hospitalist Progress Note ---
Date of Service October 07, 2019 Assessment & Plan (1) Stroke-like symptom: per admitting service notes: This is a 49-year-old male who has significant PMH of COPD, history of TIA, chronic low back pain with history of lumbar laminectomy, depression, GERD, IBS who presents to ED secondary to strokelike symptoms starting at approximately 230 this morning. Pt presented with transient dysarthria and L sided weakness now resolved except LLE weakness specifically distally. Work up in ED unremarkable, except for mild elevation Cr. Per pt this is her 4th admit for similar sx, unknown etiology, dx with TIA vs complex migraine in past. Saw Neurology Dr. Rodriguez in clinic, referred to the er ------ Brain MRI: negative for acute CVA Head and Neck CTA: 1. No significant stenosis, occlusion, or aneurysm within the [place]. 2. No significant stenosis, occlusion, or dissection identified within the carotid or vertebral arteries. EEG: normal all symptoms resolved during admission evaluated by Neurologist Dr. Mendez: MRI reviewed and Negative for ischemic stroke. T2 flair signal changes are non specific and commonly seen in patient with frequent migraines. Routine EEG was Normal. No epileptiform activity. Low suspicion for TIA. 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 Patient has daily headache with 1 migraine per week. Recommend to continue ASA 81 mg daily. Ok to discharge from Neurology standpoint. -- resume usual ASA 81mg po daily ff up with PCP and Neurologist as scheduled (2) COPD with asthma: stable Continue Advair and Umeclidinium (3) Generalized anxiety disorder: stable Continue escitalopram and Ativan as needed (4) IBS (irritable bowel syndrome): continue linzess and bowel regimen asymptomatic Disposition d/c home ff up with PCP in 1 week ff up with Neurologist as scheduled Admission and Anticipated Discharge Date Admission Date: October 06, 2019 Subjective ff up for stroke like symptoms seen resting in bed, comfortable states she feels fine overall all neuro symptoms have resolved, no recurrence while admitted no headache, dizziness, chest pain, dyspnea, palpitations, abdominal pain denies other symptoms states she is ready and would like to be discharged Review of Systems Review of Systems: All systems reviewed & are unremarkable except as noted in HPI & below Physical Exam Physical Exam: General- oriented x 3, not in distress, speaks in sentences with no effort or accessory muscle use Head- atraumatic Eyes- PERRL, EOMI, anicteric ENT- oropharynx clear Neck- supple, no JVD, no adenopathy, no thyromegaly; carotids +2/2, no bruits appreciated Lungs- clear to auscultation bilaterally, no rales/wheezes Heart- normal rate, regular rhythm; no murmur, no gallop, no rub appreciated Abdomen- normal bowel sounds, nondistended, soft, nontender, no masses or hepatosplenomegaly Extremities- no pretibial edema, no calf tenderness; peripheral pulses intact Neuro- alert, oriented x 3; CN 2-12 grossly intact; motor 5/5 bilaterally;sensation 100% on all extremities; no other gross focal neurologic deficits Skin- warm & dry Results & Data ([facility]) Vital Signs (Past 12 Hours) Vital Signs Temp Pulse Pulse Resp BP Pulse Ox 10/07/19 16:00 85 10/07/19 15:00 36.6 C 71 18 97/71 L 100 10/07/19 10:47 36.5 C 77 18 94/55 L 99 10/07/19 07:29 36.8 C 70 16 103/59 L 97 Laboratory Results all noted and reviewed
[2019-10-07] MEDS ORDERED: FLUOXETINE HCL 10 MG CAP PO SCH (21:00)
--- NOTE | 2019-10-09 11:19 | Discharge Summary ---
Date of Service October 09, 2019 Admission HPI Per Admitting Provider This is a 49-year-old male who has significant PMH of COPD, history of TIA, chronic low back pain with history of lumbar laminectomy, depression, GERD, IBS who presents to ED secondary to strokelike symptoms starting at approximately 230 this morning. She said she woke up early this morning after having a dream and felt like she was sleep talking. When she woke up she felt like her speech was slurred. She continued to talk to her self to see if speech improved, but it did not. She went back to sleep. When she woke up at approximately 7-7 30 this morning she continued to have slurred speech. When she went to talk to her her noted that she was repeating herself saying, "no no no," and speech was slurred. The symptoms lasted 3 minutes per before he noticed them resolved. and daughter are at bedside. Prior to seeing her around 730 this morning she did let the dog out, and according to the daughter the gate to let her out is difficult to use so feels she must have been well then. Currently her symptoms have improved except she does complain of residual left-sided weakness of the lower extremity and left foot drop. "That is my good leg." Due to hx of chronic LBP with hx of lumbar laminectomy she always has R foot drop/weakness. denies any facial drop or flaccidity. Initially she did not present to ED because she had appointment already sche duled with neurology Dr. Rodriguez. She was seen and evaluated by Dr. Rodriguez who recommended she be seen in ED to be admitted for MRI and EEG work-up. Patient and daughter are very frustrated and state, "this is our fourth admission and we still understand was going on." She further complains of difficulty starting stream with urine. "I have to sit there awhile before it comes out." She denies any recent illness, f/c/s, dizziness, lightheaded, change in vision, change in hearing, GREGORY, chest pain, sob, palpitations, n/v/d, abdominal pain, dysuria, increased freq, melena, hematochezia. Appetite has been normal and admits to weight gain. In ED patient remained hemodynamically stable. She was not TPA candidate secondary to duration of symptoms and further resolution of symptoms. Lab work-up relatively unremarkable. She underwent head CT, head and neck CTA which were otherwise unremarkable. Cr mild elevated at 1.21, baseline is around 1.0. Her troponin and TSH WNL. Of significance she has been hospitalized in past 06/2019 for similar sx after syncopal episode. It was also reported prior to the syncopal episode of dysarthria-like symptoms. At that time she underwent strokelike work-up with MRI, EEG, CT head, CTA of head and neck which are unremarkable. She has Ziopatch as outpt which was reported as normal and hypercoaguable work up which was unremarkable from what I can see including factor V, prothrombin, cardiolipin antib. She was placed on dual antiplatelet therapy aspirin and Plavix as well as statin. Her Plavix recently discontinued. Her stenosis continue due to intolerance. There was concern for TIA vs Complex migraine; therefore they have been titrating her gabapentin and she is also on topamax. Admission Exam Per Admitting Provider Constitutional: WD/WN, F, vitals as above, NAD, sitting up in bed, pleasant, conversing easily Head: Normocephalic, Atraumatic Eyes: PERRL, conjunctivae normal, anicteric sclerae ENMT: external ear and nose normal, oropharynx normal Neck: trachea midline, no thyromegaly normal visual inspection Respiratory: normal respiratory effort, lungs clear to auscultation, no wheeze, rales, rhonchi. Normal insp/exp effort, no accessory muscle use Cardiovascular: RRR, no murmur, no edema Vessels: no JVD or carotid bruit Chest: normal inspection of chest Abdomen: normal bowel sounds, soft, nontender, no hepatosplenomegaly Musculoskeletal: no cyanosis or clubbing, extremities motor strength 5/5 except L plantar flexion 4/5 and L hip ext 4/5, no clonus, no babinski Skin: no rashes, warm and dry normal turgor Neurologic: PERRL, EOMI, accommodation nl, no face palsy, no dysarthria CN's II-XI intact bilaterally and moves all extremities , no pronator drift, point to point intact Psychiatric: A+Ox3, euthymic affect Lymphatic: no cervical or axillary lymphadenopathy : deferred Principal Diagnosis STROKE LIKE SYMPTOMS, LIKELY MOTOR AURA Discharge Exam General- oriented x 3, not in distress, speaks in sentences with no effort or accessory muscle use Head- atraumatic Eyes- PERRL, EOMI, anicteric ENT- oropharynx clear Neck- supple, no JVD, no adenopathy, no thyromegaly; carotids +2/2, no bruits appreciated Lungs- clear to auscultation bilaterally, no rales/wheezes Heart- normal rate, regular rhythm; no murmur, no gallop, no rub appreciated Abdomen- normal bowel sounds, nondistended, soft, nontender, no masses or hepato splenomegaly Extremities- no pretibial edema, no calf tenderness; peripheral pulses intact Neuro- alert, oriented x 3; CN 2-12 grossly intact; motor 5/5 bilaterally;sensation 100% on all extremities; no other gross focal neurologic deficits Skin- warm & dry Discharge Data Allergies Allergy/AdvReac Type Severity Reaction Status Date / Time nicotine Allergy Mild NICOTINE Verified 10/06/19 11:53 PATCH-RASH AND EDEMA honey Allergy Unknown RAW Verified 10/06/19 11:53 HONEY-THROAT SWELLING, SOB meperidine Allergy Unknown THROAT Verified 10/06/19 11:53 SWELLED, SOB Consultations 10/06/19 12:52 ED Decision to Admit Stat 10/06/19 13:53 Consult Neurology Routine 10/06/19 15:38 Consult Case Management - Discharge Planning Routine Ordered Studies 10/06/19 11:20 CT head/brain wo con Stat 10/06/19 11:29 CT angio head w con Stat CT angio neck with con Stat 10/06/19 13:53 MR brain wo con Routine Hospital Course (1) Stroke-like symptom: per admitting service notes: This is a 49-year-old male who has significant PMH of COPD, history of TIA, chronic low back pain with history of lumbar laminectomy, depression, GERD, IBS who presents to ED secondary to strokelike symptoms starting at approximately 230 this morning. Pt presented with transient dysarthria and L sided weakness now resolved except LLE weakness specifically distally. Work up in ED unremarkable, except for mild elevation Cr. Per pt this is her 4th admit for similar sx, unknown etiology, dx with TIA vs complex migraine in past. Saw Neurology Dr. Rodriguez in clinic, referred to the er ------ Brain MRI: negative for acute CVA Head and Neck CTA: 1. No significant stenosis, occlusion, or aneurysm within the [place]. 2. No significant stenosis, occlusion, or dissection identified within the carotid or vertebral arteries. EEG: normal all symptoms resolved during admission back to baseline evaluated by Neurologist Dr. Mendez, per his notes: "MRI reviewed and Negative for ischemic stroke. T2 flair signal changes are non specific and commonly seen in patient with frequent migraines. Routine EEG was Normal. No epileptiform activity. Low suspicion for TIA. 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 Patient has daily headache with 1 migraine per week. Recommend to continue ASA 81 mg daily. Ok to discharge from Neurology standpoint." -- resume usual ASA 81mg po daily ff up with PCP and Neurologist as scheduled (2) COPD with asthma: stable Continue Advair and Umeclidinium (3) Generalized anxiety disorder: stable Continue escitalopram and Ativan as needed (4) IBS (irritable bowel syndrome): continue linzess and bowel regimen asymptomatic Disposition d/c home ff up with PCP in 1 week ff up with Neurologist as scheduled Total Time Total Time Spent Total Time Spent (In Minutes): 45 minutes Discharge Plan Discharge Items Patient Disposition: Home - Self-Care Reason For Visit: STROKE LIKE SYMPTOMS VS COMPLEX MIGRAINE Discharge Diagnosis: Strokelike symptoms, possible motor aura Activity: As commented below Activity Comment: Resume activity gradually as tolerated Lifting: Wait until after follow-up appointment Exercise/Sports: Wait until after follow-up appointment Driving/Machine Use: No driving until reevaluated and allowed by primary care physician Non-emergency contact: Primary Care Provider and Neurologist Call non-emergency contact if: you have any medication questions and you have a fever Follow-up/Referrals: Demarcus Tovar, [Primary Care Provider] - 10/09/19 10:05 am (F/U WITH AMNA INIGUEZ 10/09/2019 1005) Diet: Heart Healthy Addtl Attending Provider Instructions: Continue your usual medication regimen, including aspirin daily. Drink plenty of water everyday. Please follow-up with primary care physician within 1 week. Please follow-up with neurologist Dr. Segundo in 2 weeks. Medical Emergencies: Call 911 immediately if you experience any of the following warning signs and symptoms of Stroke: Sudden numbness or weakness of the face, arm or leg, especially on one side of the body Sudden confusion, trouble speaking or understanding Sudden trouble seeing in one or both eyes Sudden trouble walking, dizziness, loss of balance or coordination Sudden severe headache with no cause Do not delay calling 911 if you experience any warning signs or symptoms of a stroke. Delay in seeking medical attention may affect what treatments can be given to you. Pending Studies at Discharge: Yes Studies:: Repeat blood work-basic metabolic profile on follow-up with primary care physician within 1 week. Stand-Alone Forms: [facility], Smoking Cessation Medications and DC Order Prescriptions: Continued escitalopram oxalate 10 mg tablet 10 mg PO QAM RF: 0 aspirin [Ecotrin Low Strength] 81 mg tablet,delayed release (DR/EC) 81 mg PO QAM RF: 0 cyclobenzaprine 10 mg tablet 10 mg PO HS PRN (Reason: Muscle Spasm) RF: 0 fluticasone propion-salmeterol [Advair Diskus] 250-50 mcg/dose Blister With Device 1 inh INHALATION QAM RF: 0 sennosides [Senna Lax] 8.6 mg Tablet 2 tab PO HS RF: 0 potassium chloride 10 mEq capsule, extended release 10 meq PO BID RF: 0 sumatriptan succinate [Imitrex] 100 mg tablet 100 mg PO DAILY MDD 200 mg PRN (Reason: Migraine Headache) RF: 0 hydrocodone-acetaminophen 5-325 mg tablet 1 tab PO DAILY PRN (Reason: Pain) RF: 0 magnesium citrate Solution 120 ml PO DAILY PRN (Reason: Constipation) RF: 0 polyethylene glycol 3350 17 gram/dose Powder 17 g PO DAILY PRN (Reason: Constipation) RF: 0 zolpidem 10 mg tablet 10 mg PO HS RF: 0 albuterol sulfate 90 mcg/actuation Hfa Aerosol Inhaler 2 puff INHALATION QID PRN (Reason: Wheezing) RF: 0 topiramate [Topamax] 100 mg tablet 150 mg PO QAM RF: 0 bupropion HCl [Wellbutrin SR] 200 mg Tablet Sustained-Release 12 Hr 200 mg PO BID RF: 0 cholecalciferol (vitamin D3) [Vitamin D3] 1,000 unit Tablet 1,000 unit PO HS RF: 0 umeclidinium 62.5 mcg/actuation Blister With Device 1 inh INHALATION QAM RF: 0 riboflavin (vitamin B2) 400 mg Tablet 400 mg PO QAM RF: 0 One-A-Day Women's 50 Plus 400-20 mcg Tablet 1 tab PO HS RF: 0 topiramate [Topamax] 100 mg Tablet 200 mg PO HS RF: 0 omeprazole 40 mg capsule,delayed release(DR/EC) 40 mg PO QAM RF: 0 lorazepam 1 mg tablet 1 mg PO Q6H PRN (Reason: Anxiety) RF: 0 Linzess 290 mcg capsule 290 mcg PO DAILY RF: 0 magnesium oxide 400 mg magnesium Tablet 400 mg PO HS RF: 0 gabapentin 300 mg capsule 600 mg PO HS RF: 0 gabapentin 100 mg Capsule 200 mg PO BID RF: 0 Discharge Orders: Discharge Order (Routine); Ordered 10/07/19 Ordered By: Travis Zarate Admission Data Admit Date/Time: 10/06/19 13:19 Attending Provider: Travis Zarate Admit Provider: Carter Hunt Primary Care Provider: Demarcus Tovar Other Providers: Varinder Mendez ; Carter Hunt Other Interventions: Discharge Summary Assessment (RN) Last Done: 10/07/19 17:54 DC Date/Time DO NOT enter until pt leaves facility: 10/07/19 18:21
== END 2019-10-07 18:21 | disposition home or self-care (01) | DRG 103 ==
LOC: ED 10:51 → 2E 13:19 → SUATTDRO 13:19 → 2E 14:09

== ENCOUNTER 2021-02-14 17:56 | Observation (INO) ==
[2021-02-14] MEDS ORDERED: dexAMETHasone**PF** 10 MG/ML VIAL IV ONE (19:08)
--- NOTE | 2021-02-14 19:14 | Emergency Department Note ---
History of Present Illness General Chief complaint: Seizure Time Seen by Provider: 02/14/21 18:54 Source: patient Mode of arrival: ambulatory Limitations: no limitations History of Present Illness Provider complaint: Seizure-like activity This is a 50-year-old female who presents to the ED with a chief complaint of seizure-like activity. The patient states that she has a history of seizure- like activity but had an EEG during some of her seizure activity and there was no seizure activity on EEG. The patient states that she had a chemical stress test today. After the stress test she was a little hoarse. She contacted her doctor and they recommended she go to the urgent care. She was evaluated there and during her evaluation she had a seizure or seizure-like activity and was sent here by EMS. EMS found her sugar to be 50 and she was given some D10 in route. The patient denies biting her tongue or incontinence. She did not lose consciousness. The patient has no additional complaints at this time. Home Medications Medication Instructions Recorded Confirmed Type One-A-Day Women's 50 Plus 1 tab PO HS 12/25/18 02/14/21 History albuterol sulfate 2 puff INHALATION QID PRN 12/25/18 02/14/21 History bupropion HCl [Wellbutrin SR] 200 mg PO BID 12/25/18 02/14/21 History cholecalciferol (vitamin D3) 1,000 unit PO HS 12/25/18 02/14/21 History [Vitamin D3] cyclobenzaprine 10 mg PO HS PRN 12/25/18 02/14/21 History fluticasone propion-salmeterol 1 inh INHALATION QAM 12/25/18 02/14/21 History [Advair Diskus] hydrocodone-acetaminophen 1 tab PO DAILY PRN 12/25/18 02/14/21 History magnesium citrate 120 ml PO DAILY PRN 12/25/18 02/14/21 History polyethylene glycol 3350 17 g PO DAILY PRN 12/25/18 02/14/21 History potassium chloride 10 meq PO BID 12/25/18 02/14/21 History riboflavin (vitamin B2) 400 mg PO QAM 12/25/18 02/14/21 History sennosides [Senna Lax] 2 tab PO HS 12/25/18 02/14/21 History sumatriptan succinate [Imitrex] 100 mg PO DAILY PRN MDD 200 mg 12/25/18 02/14/21 History topiramate [Topamax] 150 mg PO QAM 12/25/18 02/14/21 History umeclidinium 1 inh INHALATION QAM 12/25/18 02/14/21 History zolpidem 10 mg PO HS 12/25/18 02/14/21 History Linzess 290 mcg PO DAILY 07/10/19 02/14/21 History lorazepam 1 mg PO Q6H PRN 07/10/19 02/14/21 History omeprazole 40 mg PO QAM 07/10/19 02/14/21 History topiramate [Topamax] 200 mg PO HS 07/10/19 02/14/21 History aspirin [Ecotrin Low Strength] 81 mg PO QAM 07/26/19 02/14/21 History escitalopram oxalate 10 mg PO QAM 07/26/19 02/14/21 History gabapentin 200 mg PO BID 10/06/19 02/14/21 History gabapentin 600 mg PO HS 10/06/19 02/14/21 History magnesium oxide 400 mg PO HS 10/06/19 02/14/21 History bisacodyl [Gentle Laxative 10 mg ME DIRECTED PRN #12 ea 01/27/21 02/14/21 Rx (bisacodyl)] fluoxetine 40 mg PO DAILY 02/14/21 02/14/21 History Allergies Allergy/AdvReac Type Severity Reaction Status Date / Time nicotine Allergy Mild NICOTINE Verified 02/14/21 20:14 PATCH-RASH AND EDEMA honey Allergy Unknown RAW Verified 02/14/21 20:14 HONEY-THROAT SWELLING, SOB meperidine Allergy Unknown THROAT Verified 02/14/21 20:14 SWELLED, SOB Past Med/Surg History Medical History (Updated 02/14/21 @ 20:37 by Dmitry Donato DO) COPD with asthma Generalized anxiety disorder IBS (irritable bowel syndrome) Lumbar stenosis with neurogenic claudication (09/02/14) Migraines Surgical History H/O laminectomy L4-S1 2014 Dr. Encinas H/O oophorectomy History of cholecystectomy History of hysterectomy History of tubal ligation Family History Sister Stroke PFO (patent foramen ovale) Grandmother Stroke Social History Smoking Status: Never smoker packs per day: 1; Years Smoked: 20; Number of Years Since Quit: 15; Second Hand Exposure: No; Hx Alcohol Use: No Hx Substance Use: No Preferred Language: Mongolian Communication Ability: Effective Pyrometallurgical Engineer Required: No Beliefs That Will Affect Care: None Current Living Situation: Spouse Feels Safe at Home: Yes Assistive Devices: None Review of Systems A total of 10 systems reviewed and were otherwise negative Physical Exam Vital Signs Vital Signs - 24 hr 02/14/21 18:06 02/14/21 19:57 Temperature 36.9 C Temperature Source Oral Pulse Rate 46 L Pulse Rate [Right Finger] 46 L Pulse Strength [Right Finger] Normal Respiratory Rate 18 18 Respiratory Effort / Characteristics Non-Labored Nasal Congestion Non-Labored Respiratory Depth Normal Normal Respiratory Pattern Regular Blood Pressure 96/66 L Blood Pressure [Right Arm] 86/58 L Blood Pressure Mean 76 Blood Pressure Mean [Right Arm] 67 Blood Pressure Position [Right Arm] Sitting Pulse Oximetry 96 Oxygen Delivery Method Room Air Sepsis Recent Fever Within 48 Hours No Sepsis New/Unexplained Change in Mental Status No Sepsis Action Taken by Nursing No Action Required CONSTITUTIONAL/VITAL SIGNS: Reviewed / noted above. GENERAL: Non-toxic in appearance. INTEGUMENTARY: Warm, dry, and [place]. HEAD: Normocephalic. EYES: without scleral icterus or trauma. ENT/OROPHARYNX: clear and moist. LYMPHADENOPATHY/NECK: Is supple without lymphadenopathy or meningismus. RESPIRATORY: Lungs clear and equal. CARDIOVASCULAR: Regular rate and rhythm. GI/ABDOMEN: Soft and nontender. No organomegaly or pulsatile mass. No rebound or guarding. Normal bowel sounds. EXTREMITIES: Warm and well perfused. BACK: No CVA tenderness. NEUROLOGICAL: Intact without focal deficits. PSYCHIATRIC: normal affect. MUSCULOSKELETAL: Normally developed with good muscle tone. TRIAGE NURSING DOCUMENTATION REVIEWED. Medical Decision Making Differential Diagnosis Differential includes acute cardiac dysrhythmia, microinfarction, CVA, TIA, dehydration, anemia, electrolyte disturbance, seizure, trauma, intracranial bleeding, acute vascular catastrophe, thoracic aortic dissection, PE, abdominal aortic aneurysm rupture, infection, hypoglycemia, overdose, trauma. Medical Records Attestation: I reviewed the patient's medical records. Home Medications Current Medication List: was personally reviewed by me Laboratory Data Attestation: I reviewed the patient's lab results. Result diagrams: 02/14/21 18:16 02/14/21 18:16 Lab Results 02/14/21 02/14/21 02/14/21 Range/Units 18:16 18:16 19:52 WBC 7.36 (4.8-10.8) K/uL RBC 3.90 L (4.2-5.4) M/uL Hgb 11.9 L (12.0-16.0) g/dL Hct 36.3 L (37-47) % MCV 93.1 (80-100) fL MCH 30.5 (25-34) pg MCHC 32.8 (32-36) g/dL RDW Std Deviation 45.9 (36.4-46.3) fL RDW Coeff of Audie 13.3 (11.5-14.5) % Plt Count 385 (130-400) K/uL MPV 9.7 (7.4-10.4) fL Immature Gran % (Auto) 0.1 % Neut % (Auto) 45.9 % Lymph % (Auto) 39.7 % [place] % (Auto) 8.2 % Eos % (Auto) 5.3 % Baso % (Auto) 0.8 % Neut # (Auto) 3.38 (1.4-6.5) K/uL Lymph # (Auto) 2.92 (1.2-3.4) K/uL [place] # (Auto) 0.60 H (0.11-0.59) K/uL Eos # (Auto) 0.39 (0-0.5) K/uL Baso # (Auto) 0.06 (0-0.2) K/uL Immature Gran # (Auto) 0.01 (0.00-0.02) K/uL Sodium 143 (136-145) mmol/L Potassium 4.0 (3.5-5.1) mmol/L Chloride 113 H (98-107) mmol/L Carbon Dioxide 26 (21-32) mmol/L Anion Gap 4.0 (3-11) BUN 15 (7-18) mg/dl Creatinine 1.17 (0.6-1.2) mg/dl Est Cr Clr Drug Dosing 63.9 ml/min Est GFR ( Amer) 63.4 ml/min Est GFR (Non-Af Amer) 54.7 ml/min BUN/Creatinine Ratio 12.4 (10-20) Glucose 56 L (70-99) mg/dl Calcium 8.6 (8.5-10.1) mg/dl Total Bilirubin 0.3 (0.2-1) mg/dl AST 17 (15-37) U/L ALT 23 (12-78) U/L Alkaline Phosphatase 96 (45-117) U/L Troponin I 2.960 H* (0-0.045) ng/ml Total Protein 7.2 (6.4-8.2) gm/dl Albumin 3.8 (3.4-5.0) gm/dl Globulin 3.4 (2.5-4.0) gm/dl Albumin/Globulin Ratio 1.1 (0.9-2) TSH 2.790 (0.300-4.500) uIu/ml Urine Color Yellow Urine Appearance Clear (Clear) Urine pH 7.5 (4.5-7.5) Ur Specific [place] 1.014 (1.000-1.030) Urine Protein Negative (Negative) Urine Glucose (UA) Negative (Negative) Urine Ketones Negative (Negative) Urine Blood Negative (Negative) Urine Nitrite Negative (Negative) Urine Bilirubin Negative (Negative) Urine Urobilinogen Negative (Negative) Ur Leukocyte Esterase Negative (Negative) Imaging Data Radiologist's Impression: Chest X-Ray 02/14/21 19:08 XR chest 1V portable HISTORY: weakness COMPARISON: Chest 07/10/2019. FINDINGS: The lungs are clear. Cardiac silhouette is normal in size. No pleural effusions. No pneumothorax. IMPRESSION: No acute process. ACT 112: Negative or not required by law. Electronically signed by: Afshin Figueredo M.D. 02/14/2021 7:42 PM [facility] Narrative Patient presents with seizure-like activity as detailed above. Exam was unremarkable. No tongue injury or incontinence. History of seizure-like activity with normal EEG findings. The patient only complains of some hoarseness since her chemical stress test this morning. Blood sugar was 50 by EMS. This improved after D10. Patient was treated with Decadron for the hoarseness. EKG shows sinus bradycardia rate of 50. Chest x-ray was negative for acute disease. CBC chemistry panel was unremarkable. Glucose is 56. Troponin is elevated. The patient was treated with aspirin p.o. and Lovenox subcu. He will be seen by the hospitalist for further evaluation and care. Impression & Plan Elevated troponin, Seizure-like activity Discharge Plan Visit Data Chief Complaint: Seizure ED Provider: Dmitry Donato Discharge Problem: Elevated troponin, Seizure-like activity Patient Disposition: Home - Self-Care Forms Stand Alone Forms: [facility] Emergency Department, Important Visit Information Prescriptions Prescriptions: No Action escitalopram oxalate 10 mg tablet 10 mg PO QAM RF: 0 aspirin [Ecotrin Low Strength] 81 mg tablet,delayed release (DR/EC) 81 mg PO QAM RF: 0 cyclobenzaprine 10 mg tablet 10 mg PO HS PRN (Reason: Muscle Spasm) RF: 0 fluticasone propion-salmeterol [Advair Diskus] 250-50 mcg/dose Blister With Device 1 inh INHALATION QAM RF: 0 sennosides [Senna Lax] 8.6 mg Tablet 2 tab PO HS RF: 0 potassium chloride 10 mEq capsule, extended release 10 meq PO BID RF: 0 sumatriptan succinate [Imitrex] 100 mg tablet 100 mg PO DAILY MDD 200 mg PRN (Reason: Migraine Headache) RF: 0 hydrocodone-acetaminophen 5-325 mg tablet 1 tab PO DAILY PRN (Reason: Pain) RF: 0 magnesium citrate Solution 120 ml PO DAILY PRN (Reason: Constipation) RF: 0 polyethylene glycol 3350 17 gram/dose Powder 17 g PO DAILY PRN (Reason: Constipation) RF: 0 zolpidem 10 mg tablet 10 mg PO HS RF: 0 albuterol sulfate 90 mcg/actuation Hfa Aerosol Inhaler 2 puff INHALATION QID PRN (Reason: Wheezing) RF: 0 topiramate [Topamax] 100 mg tablet 150 mg PO QAM RF: 0 bupropion HCl [Wellbutrin SR] 200 mg Tablet Sustained-Release 12 Hr 200 mg PO BID RF: 0 cholecalciferol (vitamin D3) [Vitamin D3] 1,000 unit Tablet 1,000 unit PO HS RF: 0 umeclidinium 62.5 mcg/actuation Blister With Device 1 inh INHALATION QAM RF: 0 riboflavin (vitamin B2) 400 mg Tablet 400 mg PO QAM RF: 0 One-A-Day Women's 50 Plus 400-20 mcg Tablet 1 tab PO HS RF: 0 topiramate [Topamax] 100 mg Tablet 200 mg PO HS RF: 0 omeprazole 40 mg capsule,delayed release(DR/EC) 40 mg PO QAM RF: 0 lorazepam 1 mg tablet 1 mg PO Q6H PRN (Reason: Anxiety) RF: 0 Linzess 290 mcg capsule 290 mcg PO DAILY RF: 0 magnesium oxide 400 mg magnesium Tablet 400 mg PO HS RF: 0 gabapentin 300 mg capsule 600 mg PO HS RF: 0 gabapentin 100 mg Capsule 200 mg PO BID RF: 0 bisacodyl [Gentle Laxative (bisacodyl)] 10 mg suppository 10 mg ME DIRECTED PRN (Reason: constipation) Qty: 12 RF: 0 fluoxetine 40 mg capsule 40 mg PO DAILY RF: 0 Referrals Referrals: Demarcus Tovar DO [Primary Care Provider] -
[2021-02-14] MEDS ORDERED: SODIUM CHLORIDE 0.9% 1000ML 1,000 ML IV SCH ×2 (19:15→23:47)
[2021-02-14 19:34] LABS: Albumin Level 3.8 gm/dl (3.4-5.0); BUN Creatinine Ratio 12.4 (10-20); Calcium 8.6 mg/dl (8.5-10.1); Creatinine Clr Calc Pharmacy 63.9 ml/min; Est GFR (African American) 63.4 ml/min; Est GFR (Non-African American) 54.7 ml/min
--- NOTE | 2021-02-14 19:44 | XRay Report ---
XR chest 1V portable HISTORY: weakness COMPARISON: Chest 07/10/2019. FINDINGS: The lungs are clear. Cardiac silhouette is normal in size. No pleural effusions. No pneumot horax. IMPRESSION: No acute process. ACT 112: Negative or not required by law. Electronically signed by: Afshin Figueredo M.D. 02/14/2021 7:42 PM
[2021-02-14 20:03] LABS: Appearance Urine Clear (Clear); Bilirubin Urine Negative (Negative); Blood Urine Negative (Negative); Color Urine Yellow; Glucose Urine UA Negative (Negative); Ketones Urine Negative (Negative); Leukocyte Esterase Urine Negative (Negative); Nitrite Urine Negative (Negative); Protein Urine Negative (Negative); Specific Gravity Urine 1.014 (1.000-1.030); Urobilinogen Urine Negative (Negative); pH Urine 7.5 (4.5-7.5)
[2021-02-14 20:03] LABS: Albumin Globulin Ratio 1.1 (0.9-2); Bilirubin,Total 0.3 mg/dl (0.2-1); Globulin 3.4 gm/dl (2.5-4.0); Thyroid Stimulating Hormone 2.79 uIu/ml (0.300-4.500); Total Protein 7.2 gm/dl (6.4-8.2); Troponin I 2.96 ng/ml (0-0.045)
[2021-02-14] MEDS ORDERED: ENOXAPARIN 1 MG/KG SC STA (20:06)
[2021-02-14] MEDS ORDERED: ASPIRIN CHEW 324 MG PO STA (20:06)
[2021-02-14] MEDS ORDERED: ENOXAPARIN 100 MG/1ML SYR SQ STA (20:19)
[2021-02-14 20:22] LABS: Hematocrit (blood only) 36.3 % (37-47); Hemoglobin 11.9 g/dL (12.0-16.0); Mean Corpuscular Hemoglobin 30.5 pg (25-34); Mean Corpuscular Hgb Conc 32.8 g/dL (32-36); Mean Corpuscular Volume 93.1 fL (80-100); Mean Platelet Volume 9.7 fL (7.4-10.4); Platelet Count 385 K/uL (130-400); RDW Coefficient of Variation 13.3 % (11.5-14.5); RDW Standard Deviation 45.9 fL (36.4-46.3); White Blood Count 7.36 K/uL (4.8-10.8)
[2021-02-14 20:23] LABS: Basophils # (auto) 0.06 K/uL (0-0.2); Basophils % (auto) 0.8 %; Eosinophils # (auto) 0.39 K/uL (0-0.5); Eosinophils % (auto) 5.3 %; Immature Granulocytes # (auto) 0.01 K/uL (0.00-0.02); Immature Granulocytes % (auto) 0.1 %; Lymphocytes # (auto) 2.92 K/uL (1.2-3.4); Lymphocytes % (auto) 39.7 %; Monocytes % (auto) 8.2 %; Neutrophils # (auto) 3.38 K/uL (1.4-6.5); Neutrophils % (auto) 45.9 %
[2021-02-14] MEDS ORDERED: diphenhydrAMINE 50 MG/ML VIAL IV STA (20:39)
[2021-02-14] MEDS ORDERED: diphenhydrAMINE Capsule 25 MG CAP PO ONE (20:41)
[2021-02-14] MEDS ORDERED: ALBUTEROL HFA 8 GM INHALER INH PRN (23:47)
[2021-02-14] MEDS ORDERED: SUMAtriptan succinate 100 MG TAB PO PRN (23:47)
[2021-02-14] MEDS ORDERED: GABAPENTIN 300 MG CAP PO SCH (23:47)
[2021-02-14] MEDS ORDERED: ACETAMINOPHEN 325 MG TAB PO PRN (23:47)
[2021-02-14] MEDS ORDERED: TOPIRAMATE 100 MG TAB PO SCH (23:47)
[2021-02-14] MEDS ORDERED: POLYETHYLENE (MIRALAX) 17 GM PACK PO PRN ×2 (23:47)
[2021-02-14] MEDS ORDERED: NITROGLYCERIN SL 0.4 MG/TAB TAB SL PRN (23:47)
[2021-02-14] MEDS ORDERED: ONDANSETRON INJ 2 MG/ML 2 ML VIAL IV PRN (23:47)
[2021-02-14] MEDS ORDERED: bisacodyL 10 MG SUPP PR PRN (23:47)
[2021-02-14] MEDS ORDERED: ZOLPIDEM TARTRATE 10 MG TAB PO SCH (23:47)
[2021-02-14] MEDS ORDERED: HYDROCODONE/ACETAMOPHEN 5/325MG TAB PO PRN (23:47)
[2021-02-14] MEDS ORDERED: MAGNESIUM CITRATE 296 ML/BTL PO PRN (23:47)
[2021-02-14] MEDS ORDERED: LORazepam 1 MG/2 ML VIAL IV PRN (23:47)
[2021-02-14] MEDS ORDERED: LORazepam 1 MG TAB PO PRN (23:58)
[2021-02-14] MEDS ORDERED: CYCLOBENZAPRINE HCL 10 MG TAB PO PRN (23:59)
[2021-02-15] MEDS ORDERED: FLUoxetine HCL 20 MG CAP PO SCH ×2 (00:15→09:00)
[2021-02-15] MEDS: buPROPion SR 100 MG TABCR PO SCH ×2 (00:25→08:24)
[2021-02-15] MEDS: D5W AND NSS 1,000 ML IV SCH ×2 (00:26→10:52)
[2021-02-15] MEDS: POTASSIUM CHLORIDE 10 MEQ TABCR PO SCH ×2 (00:41→08:24)
--- NOTE | 2021-02-15 00:42 | History and Physical Report ---
DATE OF ADMISSION: 02/14/2021. CHIEF COMPLAINT: Status post stress test today, after that had hoarseness of voice and a questionable seizure episode in urgent care. HISTORY OF PRESENT ILLNESS: This is a 50-year-old female with past medical history significant for hyperlipidemia, moderate persistent asthma without complication, TIAs, irritable bowel syndrome, GERD, nodule of colon, chronic kidney disease stage III, migraines, sensorineural hearing loss of both ears, low back pain, history of generalized anxiety, history of memory loss, moderate depression, history of degenerative disk disease. The patient had a dobutamine stress test today. After the stress test she went home, she had a hoarseness of voice, she was told it was a side effect from the medication given for stress test, but it got worse, so she went to urgent care. In urgent care, she had a brief episode of shaking of the body and she thought she may have had a couple of seconds of loss of consciousness. After she woke up, she was confused a few seconds, then she was back to normal and she was sent in here. She has had these kind of episodes in the past. As per the patient, she was worked up with neurology and there was no seizure found, that is the reason she had a stress test today for possible cardiac disease causing the symptoms. The patient does not know the results of the stress test, but in the EPIC it shows equivocal stress test. But in the ER, the patient was found to have a troponin of 2.9. EKG has no significant findings. The patient was given 325 mg aspirin and Lovenox shot. Currently, resting comfortably and hemodynamically stable. She has a mild headache. No runny nose, no sore throat, no cough, no blurred visions, no nausea, no abdominal pain, no shortness of breath. Currently, no chest pain, no cough, no fevers, no abdominal pain. Normal bowel and bladder movements. No swelling in the legs, no rash. Had COVID shot. ALLERGIES: TO NICOTINE, HONEY, MEPERIDINE. PAST MEDICAL HISTORY: As mentioned above. PAST SURGICAL HISTORY: Colonoscopies with biopsies, EGDs, EGD with endoscopic ultrasound, laparoscopic cholecystectomy, ligation of oviducts, back surgery, total abdominal hysterectomy with removal of tubes. MEDICATIONS: The patient is on albuterol 2 puffs inhalation q.i.d. p.r.n., aspirin 81 mg p.o. daily, bisacodyl 10 mg FL as directed, Wellbutrin SR 200 mg p.o. b.i.d., vitamin D 1000 units p.o. at bedtime, cyclobenzaprine 10 mg p.o. at bedtime p.r.n., Lexapro 10 mg p.o. a.m., fluoxetine 40 mg p.o. daily, Advair Diskus 1 puff inhalation in the a.m., gabapentin 600 mg p.o. at bedtime, gabapentin 200 mg p.o. b.i.d., hydrocodone/acetaminophen 1 tablet p.o. daily p.r.n., Linzess 290 mcg p.o. daily, Ativan 1 mg p.o. q. 6 hours p.r.n., magnesium citrate FL daily p.r.n., magnesium oxide 400 mg p.o. at bedtime, omeprazole 40 mg p.o. a.m., vitamin One A Day Women's 50 Plus one tablet p.o. at bedtime, MiraLax 17 g p.o. daily p.r.n., potassium chloride 20 mEq p.o. b.i.d., riboflavin 400 mg p.o. a.m., Lasix 2 tablets p.o. at bedtime, Imitrex p.r.n., Topamax 150 mg p.o. a.m., Topamax 200 mg p.o. at bedtime, umeclidinium 1 inhalation q.a.m., zolpidem 10 mg p.o. at bedtime. FAMILY HISTORY: Significant for daughter has allergies; mother has asthma, hypertension, lung disorder, sarcoidosis; father has emphysema, lung cancer, COPD. SOCIAL HISTORY: , former smoker, quit in 2006, smoked 1.5 packs a day for 20 years. Alcohol occasionally. No drug use. REVIEW OF SYSTEMS: As per HPI. Rest of the review of systems is negative. PHYSICAL EXAMINATION: GENERAL: The patient is of moderately build, not in acute distress. VITAL SIGNS: Temperature 36.9, pulse in 40s and 50s, respiratory rate 16, blood pressure 101/60, oxygen 100% on room air. HEENT: Pupils equal, round and reactive to light. Oral mucosa moist. NECK: No JVD, no neck masses. CARDIOVASCULAR: S1 and S2 heard. Regular rate and rhythm. No murmur, no gallop. RESPIRATORY SYSTEM: Normal AP diameter. No accessory muscles use. No wheezing, no crackles. ABDOMEN: Soft, bowel sounds present, nontender, no distention. CENTRAL NERVOUS SYSTEM: Cranial nerves II-XII grossly intact. EXTREMITIES: No edema, no erythema. LABORATORY DATA: WBC 7.3, hemoglobin 11.9, hematocrit 36.3, platelets 385. Sodium 143, potassium 4, chloride 113, CO2 of 26, BUN 15, creatinine 1.1, serum glucose 56, calcium 8.6, total bilirubin 0.3, AST 17, ALT 23, alkaline phosphatase 96. Troponin 1 of 2.9. TSH 2.7. Urinalysis negative. SARS-CoV-2 PCR negative. IMAGING DATA: Chest x-ray, no acute process. EKG: Normal sinus, bradycardia at a rate of 50. No significant change was found. ASSESSMENT AND PLAN: This 50-year-old female presents with seizure-like episode and also found to have elevated troponin. 1. Non-ST elevation IL with troponin of 2.9 and today had a dobutamine stress test. The stress test was equivocal. The stress test was done because the patient was having seizure-like episodes and workup for seizure was negative. EKG unremarkable. Currently, the patient is asymptomatic. Received Lovenox and aspirin in the ER. We will start a heparin drip from the morning as the patient already received Lovenox for tonight and follow the serial troponins, and cardiac consult in a.m. We will keep her n.p.o. Further recommendations as per cardiology. We will follow the fasting lipid profile. 2. Seizure-like activity brief episode: No biting of the tongue, no incontinence, no confusion for a long time. The patient had workup done in the past and it was unremarkable for seizures. We will again do EEG and consult neurology in a.m. We will place on IV Ativan p.r.n. for any breakthrough seizures. 3. History of hyperlipidemia: Will follow the lipid profile. Seems to be not on any statins. 4. History of depression: Continue home medication of Wellbutrin and fluoxetine. 5. Anxiety: Ativan p.r.n. 6. Moderate persistent asthma: Continue home inhalers. 7. History of transient ischemic attack: On aspirin. 8. History of chronic kidney disease stage III: Creatinine is 1.1. We will follow the labs. 9. Migraines: On riboflavin and Imitrex p.r.n. and Topamax. 10. Low back pain: On gabapentin and continue home pain medications. 11. Deep venous thrombosis prophylaxis: Heparin. DISPOSITION: Closely monitor in tele floor. Level 1 full code. Expect to discharge home and follow up with family doctor. Job ID: [id number] [facility]ITALJesús
[2021-02-15 06:18] LABS: Chol HDL Ratio 3; Cholesterol 206 mg/dl (0-200); HDL Cholesterol 65 mg/dl; LDL Cholesterol Calculated 131 mg/dl; Triglycerides 49 mg/dl (0-150); VLDL Cholesterol 10 mg/dl
[2021-02-15] MEDS ORDERED: HEPARIN SODIUM/DEXTROSE 25,000 UNITS/500 ML BAG IV SCH (08:00)
[2021-02-15] MEDS ORDERED: Heparin IV Adult Wt-Based Standard *NO* Bolus Protocol ONE (08:00)
[2021-02-15] MEDS: GABAPENTIN 100 MG CAP PO SCH ×2 (08:24→11:02)
[2021-02-15] MEDS ORDERED: LINACLOTIDE 145 MCG CAPSULE PO SCH (09:00)
[2021-02-15] MEDS ORDERED: UMECLIDINIUM BROMIDE 62.5MCG/BLISTER 7 PUFFS/INHALER INH SCH (09:00)
[2021-02-15] MEDS ORDERED: TOPIRAMATE 50 MG TAB PO SCH (09:00)
[2021-02-15] MEDS ORDERED: FLUTICASONE/VILANTEROL 200/25MCG 14 PUFFS/INHALER INH SCH (09:00)
[2021-02-15] MEDS ORDERED: NON-FORMULARY MEDICATION (Riboflavin (Vitamin B2) 400 mg Tablet) PO SCH (09:00)
[2021-02-15] MEDS ORDERED: ASPIRIN 81 MG ECTAB PO SCH (09:00)
[2021-02-15] MEDS ORDERED: ESCITALOPRAM OXALATE 10 MG TAB PO SCH (09:00)
[2021-02-15] MEDS ORDERED: PANTOprazole 40 MG TAB PO SCH (09:00)
--- NOTE | 2021-02-15 10:06 | Electroencephalogram ---
EEG Procedure Note Date of Service February 15, 2021 Start / End Times Start Time: 0630 End Time: [address] Weeks History possible seizure Home Medication List Medication Instructions Recorded Confirmed Type One-A-Day Women's 50 Plus 1 tab PO HS 12/25/18 02/14/21 History albuterol sulfate 2 puff INHALATION QID PRN 12/25/18 02/14/21 History bupropion HCl [Wellbutrin SR] 200 mg PO BID 12/25/18 02/14/21 History cholecalciferol (vitamin D3) 1,000 unit PO HS 12/25/18 02/14/21 History [Vitamin D3] cyclobenzaprine 10 mg PO HS PRN 12/25/18 02/14/21 History fluticasone propion-salmeterol 1 inh INHALATION QAM 12/25/18 02/14/21 History [Advair Diskus] hydrocodone-acetaminophen 1 tab PO DAILY PRN 12/25/18 02/14/21 History magnesium citrate 120 ml PO DAILY PRN 12/25/18 02/14/21 History polyethylene glycol 3350 17 g PO DAILY PRN 12/25/18 02/14/21 History potassium chloride 10 meq PO BID 12/25/18 02/14/21 History riboflavin (vitamin B2) 400 mg PO QAM 12/25/18 02/14/21 History sennosides [Senna Lax] 2 tab PO HS 12/25/18 02/14/21 History sumatriptan succinate [Imitrex] 100 mg PO DAILY PRN MDD 200 mg 12/25/18 02/14/21 History topiramate [Topamax] 150 mg PO QAM 12/25/18 02/14/21 History umeclidinium 1 inh INHALATION QAM 12/25/18 02/14/21 History zolpidem 10 mg PO HS 12/25/18 02/14/21 History Linzess 290 mcg PO DAILY 07/10/19 02/14/21 History lorazepam 1 mg PO Q6H PRN 07/10/19 02/14/21 History omeprazole 40 mg PO QAM 07/10/19 02/14/21 History topiramate [Topamax] 200 mg PO HS 07/10/19 02/14/21 History aspirin [Ecotrin Low Strength] 81 mg PO QAM 07/26/19 02/14/21 History escitalopram oxalate 10 mg PO QAM 07/26/19 02/14/21 History gabapentin 200 mg PO BID 10/06/19 02/14/21 History gabapentin 600 mg PO HS 10/06/19 02/14/21 History magnesium oxide 400 mg PO HS 10/06/19 02/14/21 History bisacodyl [Gentle Laxative 10 mg FL DIRECTED PRN #12 ea 01/27/21 02/14/21 Rx (bisacodyl)] fluoxetine 40 mg PO DAILY 02/14/21 02/14/21 History Inpatient Medication List Aspirin (A[facility]in 81 Mg Ectab) [facility] [place] [place] 03/17/21 08:59 Last Admin: 02/15/21 08:24 Dose: 81 mg Documented by: [id number] Bupropion HCl (Bupropion Sr 100 Mg Tabcr) 200 mg PO BID [facility] Stop: 03/16/21 23:46 Last Admin: 02/15/21 08:24 Dose: 200 mg Documented by: [id number] Admin: 02/15/21 00:25 Dose: 200 mg Documented by: [id number] Fluoxetine HCl (Fluoxetine Hcl 20 Mg Cap) 40 mg PO [facility] Stop: 03/17/21 00:14 Last Admin: 02/15/21 00:25 Dose: 40 mg Documented by: [id number] Fluticasone/Vilanterol (Fluticasone/Vilanterol 200/25mcg 14 Puffs/Inhaler) 1 puffs INH DAILY [facility] Stop: 03/17/21 08:59 Last Admin: 02/15/21 08:22 Dose: 1 puffs Documented by: [id number] Gabapentin (Gabapentin 300 Mg Cap) 600 mg PO [facility] Stop: 03/16/21 23:46 Last Admin: 02/15/21 00:24 Dose: 600 mg Documented by: [id number] Gabapentin (Gabapentin 100 Mg Cap) 200 mg PO BID@0700,1200 [facility] Stop: 03/17/21 06:59 Last Admin: 02/15/21 08:24 Dose: 200 mg Documented by: [id number] Dextrose/Sodium Chloride (D5w And Nss) 1,000 mls @ 100 mls/hr IV .Q10H [facility] Stop: 03/17/21 00:14 Last Admin: 02/15/21 00:26 Dose: 100 mls/hr Documented by: [id number] Linaclotide (Linaclotide 145 Mcg Capsule) 290 mcg PO DAILY [facility] Stop: 03/17/21 08:59 Last Admin: 02/15/21 08:26 Dose: Not Given Documented by: [id number] Pantoprazole Sodium (Pantoprazole 40 Mg Tab) 40 mg PO QAM [facility] Stop: 03/17/21 08:59 Last Admin: 02/15/21 08:25 Dose: 40 mg Documented by: [id number] Potassium Chloride (Potassium Chloride 10 Meq Tabcr) 10 meq PO BID17 [facility] Stop: 03/16/21 23:46 Last Admin: 02/15/21 08:24 Dose: 10 meq Documented by: [id number] Admin: 02/15/21 00:41 Dose: Not Given Documented by: [id number] Topiramate (Topiramate 50 Mg Tab) 150 mg PO QAM [facility] Stop: 03/17/21 08:59 Last Admin: 02/15/21 08:24 Dose: 150 mg Documented by: [id number] Topiramate (Topiramate 100 Mg Tab) 200 mg PO [facility] Stop: 03/16/21 23:46 Last Admin: 02/15/21 00:25 Dose: 200 mg Documented by: [id number] Umeclidinium Satin (Umeclidinium Satin 62.5mcg/Blister 7 Puffs/Inhaler) 1 puffs INH QAM [facility] Stop: 03/17/21 08:59 Last Admin: 02/15/21 08:23 Dose: 1 puffs Documented by: [id number] Zolpidem Tartrate (Zolpidem Tartrate 10 Mg Tab) 10 mg PO [facility] Stop: 03/16/21 23:46 Last Admin: 02/15/21 00:24 Dose: 10 mg Documented by: [id number] Discontinued Medications Aspirin (Aspirin Chew 324 Mg) 324 mg PO NOW STA Stop: 02/14/21 20:07 Last Admin: 02/14/21 20:35 Dose: 324 mg Documented by: [id number] Dexamethasone Sodium Phosphate (DexamethasonePf 10 Mg/Ml Vial) 10 mg IV NOW ONE Stop: 02/14/21 19:09 Last Admin: 02/14/21 20:35 Dose: 10 mg Documented by: [id number] Diphenhydramine HCl (Diphenhydramine 50 Mg/Ml Vial) 25 mg IV NOW STA Stop: 02/14/21 20:40 Last Admin: 02/14/21 22:50 Dose: Not Given Documented by: [id number] Diphenhydramine HCl (Diphenhydramine Capsule 25 Mg Cap) 25 mg PO NOW ONE Stop: 02/14/21 20:42 Last Admin: 02/14/21 21:05 Dose: 25 mg Documented by: [id number] Enoxaparin Sodium (Enoxaparin 100 Mg/1ml Syr) 90 mg SQ NOW STA Stop: 02/14/21 20:20 Last Admin: 02/15/21 05:35 Dose: Not Given Documented by: [id number] Sodium Chloride (Nss 1000ml) 1,000 mls @ 999 mls/hr IV .Q1H1M [facility] Stop: 02/14/21 20:15 Last Infusion: 02/14/21 21:35 Dose: 0 mls/hr Documented by: [id number] Admin: 02/14/21 20:35 Dose: 999 mls/hr Documented by: [id number] Sodium Chloride (Nss 1000ml) 1,000 mls @ 80 mls/hr IV .[id number] [facility] Stop: 03/16/21 23:46 Last Admin: 02/15/21 07:25 Dose: Not Given Documented by: [id number] Description This is a 21 electrode EEG with a single channel dedicated to limited EKG. The electrodes were placed in accordance with the International 10-20 system. This EEG was done as a bedside recording and is of good technical quality with few or no muscle movement artifacts. Modulation was performed. Drowsiness light sleep not recorded. ID conditions there is evidence for normal background alpha rhythm at about 10 Hz maximal frequency which is maximum posterior head regions bilaterally symmetrical and normal amplitude of up to 30 V. Polymorphic mid to upper frequency theta activity of modest voltage is seen over central regions without regional or lateralizing predominance otherwise. Beta activity seen bifrontally. Low stimulus provokes no important changes There is no evidence for potentially epileptogenic activity Interpretation This is a normal EEG during wakefulness Clinical Correlation This EEG is normal and fails to reveal evidence for focal or generalized encephalopathy and specifically fails to reveal evidence for potentially epileptogenic activity. On review of the chart it is noted that a 72-hour ambulatory EEG done on outpatient basis revealed several "spells" similar to those described as a cause for this admission and during these no epileptiform patterns were seen This raises the strong possibility of the clinical symptoms being due to nonepileptic events Ángel Velasquez MD
--- NOTE | 2021-02-15 10:09 | Communication Note ---
Date of Service: February 15/2021 I have reviewed the above chart and the liberty of reviewing extensive outpatient notes including recent 22-hour ambulatory EEG which did record events similar to those described as a cause of today's admission and revealed no evidence for potential epileptogenic activity. Patient is known to Dr. Emeli Rodriguez, has appointment coming up on February 17, and is already on anticonvulsants for other reasons in the form of Topamax for headaches and gabapentin I suppose for pain and also headache management Current inpatient EEG is also normal I have discussed the case with and at this point see no reason for neurology to do an inpatient valuation as she does have an upcoming appointment for follow-up of her other neurologic problems and specifically to address the possibility of seizure-like activity which I think is essentially excluded by the 72-hour EEG and the current tracing I believe the consultation is now been canceled. The patient should encourage to keep her follow-up appointment with Dr. Segundo on February 17 Ángel Velasquez MD
--- NOTE | 2021-02-15 10:13 | Cardiology Consultation ---
Date of Consultation February 15, 2021 Assessment & Plan (1) Seizure-like activity: (2) Acute renal insufficiency: (3) Elevated troponin: (4) History of migraine: (5) Speech abnormality: (6) Syncope: (7) COPD with asthma: (8) Generalized anxiety disorder: At this point I do not see any cardiac component to the patient's presenting symptoms. She had a minimal troponin elevation upon presentation but she also underwent a dobutamine stress echocardiogram yesterday which easily explains the slight elevation. Stress testing was equivocal with abnormal EKG changes but normal wall motion and in light of her atypical presenting symptoms I do not believe any further cardiac testing or intervention is necessary. Okay to discharge to home from a cardiac standpoint. No medication changes from a cardiac standpoint. Follow-up with PCP as an outpatient. No cardiac follow-up necessary at this time to be determined by PCP as an outpatient whether or not follow-up is indicated. History of Present Illness Reason for Consultation: seizure activity Requesting Physician: ROMAN Attending Physician: Elissa Barrett MD History of Present Illness I saw Ms. Emerson in cardiac consultation today February 15, 2021. She is a 50-year-old woman who presented to [facility] from outpatient urgent care after reported seizure-like activity and loss of consciousness. She states that she is been having these episodes for several months now and so far has not been able to obtain a diagnosis. As part of the work-up she was sent for stress testing at [facility] and she underwent dobutamine stress testing yesterday prior to the event. During the stress test she states that she felt significantly agitated by the medications and after completion of the stress test which was nonischemic she was very weak, unable to ambulate on her own and had recurrent chest discomfort. She went home took a nap afterwards upon waking up she still felt rundown she called her PCP who directed her to urgent care. While in the urgent care office she continued to feel ill and had a witnessed syncopal event with reported possible seizure-like activity. She was then transferred to [facility] upon arrival her work-up was unremarkable and she was admitted to telemetry. No arrhythmias on monitor overnight. She states that her chest discomfort has continued to come and go at rest but nowhere near as severe as after the stress test. She states that stress testing was initially ordered as part of a work-up for these seizure-like episodes. Allergies Allergy/AdvReac Type Severity Reaction Status Date / Time nicotine Allergy Mild NICOTINE Verified 02/14/21 20:14 PATCH-RASH AND EDEMA honey Allergy Unknown RAW Verified 02/14/21 20:14 HONEY-THROAT SWELLING, SOB meperidine Allergy Unknown THROAT Verified 02/14/21 20:14 SWELLED, SOB Home Medications Medication Instructions Recorded Confirmed Type One-A-Day Women's 50 Plus 1 tab PO HS 12/25/18 02/14/21 History albuterol sulfate 2 puff INHALATION QID PRN 12/25/18 02/14/21 History bupropion HCl [Wellbutrin SR] 200 mg PO BID 12/25/18 02/14/21 History cholecalciferol (vitamin D3) 1,000 unit PO HS 12/25/18 02/14/21 History [Vitamin D3] cyclobenzaprine 10 mg PO HS PRN 12/25/18 02/14/21 History fluticasone propion-salmeterol 1 inh INHALATION QAM 12/25/18 02/14/21 History [Advair Diskus] hydrocodone-acetaminophen 1 tab PO DAILY PRN 12/25/18 02/14/21 History magnesium citrate 120 ml PO DAILY PRN 12/25/18 02/14/21 History polyethylene glycol 3350 17 g PO DAILY PRN 12/25/18 02/14/21 History potassium chloride 10 meq PO BID 12/25/18 02/14/21 History riboflavin (vitamin B2) 400 mg PO QAM 12/25/18 02/14/21 History sennosides [Senna Lax] 2 tab PO HS 12/25/18 02/14/21 History sumatriptan succinate [Imitrex] 100 mg PO DAILY PRN MDD 200 mg 12/25/18 02/14/21 History topiramate [Topamax] 150 mg PO QAM 12/25/18 02/14/21 History umeclidinium 1 inh INHALATION QAM 12/25/18 02/14/21 History zolpidem 10 mg PO HS 12/25/18 02/14/21 History Linzess 290 mcg PO DAILY 07/10/19 02/14/21 History lorazepam 1 mg PO Q6H PRN 07/10/19 02/14/21 History omeprazole 40 mg PO QAM 07/10/19 02/14/21 History topiramate [Topamax] 200 mg PO HS 07/10/19 02/14/21 History aspirin [Ecotrin Low Strength] 81 mg PO QAM 07/26/19 02/14/21 History escitalopram oxalate 10 mg PO QAM 07/26/19 02/14/21 History gabapentin 200 mg PO BID 10/06/19 02/14/21 History gabapentin 600 mg PO HS 10/06/19 02/14/21 History magnesium oxide 400 mg PO HS 10/06/19 02/14/21 History bisacodyl [Gentle Laxative 10 mg OR DIRECTED PRN #12 ea 01/27/21 02/14/21 Rx (bisacodyl)] fluoxetine 40 mg PO DAILY 02/14/21 02/14/21 History Patient History Medical History COPD with asthma Generalized anxiety disorder IBS (irritable bowel syndrome) Lumbar stenosis with neurogenic claudication (09/02/14) Migraines Surgical History H/O laminectomy L4-S1 2014 Dr. Encinas H/O oophorectomy History of cholecystectomy History of hysterectomy History of tubal ligation Family History Sister Stroke PFO (patent foramen ovale) Grandmother Stroke Social History Smoking Status: Former smoker packs per day: 1; Years Smoked: 20; Number of Years Since Quit: 15; Second Hand Exposure: No; Do You Dip or Chew Tobacco: No; Hx Alcohol Use: Yes Alcohol type: wine Hx Substance Use: No Preferred Language: Occitan Communication Ability: Effective Jewellery Designer Required: No Beliefs That Will Affect Care: None Current Living Situation: Spouse Other Information That Helps Us Care for You: No Feels Safe at Home: Yes Safety Concerns: Feels Safe At This Time Assistive Devices: None Review of Systems Review of Systems: All systems reviewed & are unremarkable except as noted in HPI & below Physical Exam Physical Exam: Physical Exam: General: Awake, alert and oriented x 3. No acute distress. HEENT: Normocephalic, atraumatic. Pupils equal, round and reactive to light and accommodation. Extraocular muscles are intact. Anicteric sclera. Moist mucous membranes. Neck: No JVD. No bruit. Cardiovascular: Regular. No S-4. Normal S-1 and S-2. No S-3. No murmurs, rubs or gallops. Pulmonary: Clear to auscultation bilaterally. No rales, rhonchi, or wheezing. Abdomen: Bowel sounds x 4, soft. No rebound, guarding or tenderness. No organomegaly. Extremities: No clubbing, cyanosis or edema. +2 pedal pulses bilaterally. Skin: Warm and dry. Results & Data ([facility]) Vital Signs (Past 12 Hours) Vital Signs Temp Pulse Pulse Resp BP BP Pulse Ox 02/15/21 07:37 36.9 C 55 L 18 94/60 L 97 02/15/21 07:21 57 L 02/15/21 04:04 36.8 C 67 18 85/54 L 98 02/15/21 00:05 54 L 02/14/21 23:47 36.5 C 42 L 16 95/58 L 100 02/14/21 22:44 41 L 16 101/60 100 (1) Syncope Syncope type: unspecified Qualified Code(s): R55 - Syncope and collapse
[2021-02-15] MEDS ORDERED: HEPARIN SOD 5,000 UNIT/0.5 ML VIAL SQ SCH (14:00)
--- NOTE | 2021-02-15 14:24 | Discharge Summary ---
Date of Service February 15, 2021 Admission HPI Per Admitting Provider DICTATED BY: Lalit Weeks MD DATE OF ADMISSION: 02/14/2021. CHIEF COMPLAINT: Status post stress test today, after that had hoarseness of voice and a questionable seizure episode in urgent care. HISTORY OF PRESENT ILLNESS: This is a 50-year-old female with past medical history significant for hyperlipidemia, moderate persistent asthma without complication, TIAs, irritable bowel syndrome, GERD, nodule of colon, chronic kidney disease stage III, migraines, sensorineural hearing loss of both ears, low back pain, history of generalized anxiety, history of memory loss, moderate depression, history of degenerative disk disease. The patient had a dobutamine stress test today. After the stress test she went home, she had a hoarseness of voice, she was told it was a side effect from the medication given for stress test, but it got worse, so she went to urgent care. In urgent care, she had a brief episode of shaking of the body and she thought she may have had a couple of seconds of loss of consciousness. After she woke up, she was confused a few seconds, then she was back to normal and she was sent in here. She has had these kind of episodes in the past. As per the patient, she was worked up with neurology and there was no seizure found, that is the reason she had a stress test today for possible cardiac disease causing the symptoms. The patient does not know the results of the stress test, but in the EPIC it shows equivocal stress test. But in the ER, the patient was found to have a troponin of 2.9. EKG has no significant findings. The patient was given 325 mg aspirin and Faina enox shot. Currently, resting comfortably and hemodynamically stable. She has a mild headache. No runny nose, no sore throat, no cough, no blurred visions, no nausea, no abdominal pain, no shortness of breath. Currently, no chest pain, no cough, no fevers, no abdominal pain. Normal bowel and bladder movements. No swelling in the legs, no rash. Had COVID shot. Principal Diagnosis 1) Seizure-like activity: (2) Acute renal insufficiency-resolved (3) Elevated troponin:-Noncardiac, had recent cardiac stress test (4) History of migraine: (5) COPD with asthma: (6) Generalized anxiety disorder: Discharge Exam Physical exam: General: No acute distress, alert awake oriented x3 HEENT: PERRLA, EOMI, Heart: Regular S1-S2, no carotid bruit, no JVD, no lower extremity edema Lungs: Clear to auscultate, no wheeze or rales Abdomen: Soft nontender, no organomegaly Extremity: No cyanosis, no deformity, normal strength 5 out of 5 with upper and lower Neuro: No focal neurological deficit normal speech, normal visual field, Motor strength : normal both upper and lower extremity, sensation intact Psych: Alert awake oriented x3, normal affect Discharge Data Allergies Allergy/AdvReac Type Severity Reaction Status Date / Time nicotine Allergy Mild NICOTINE Verified 02/14/21 20:14 PATCH-RASH AND EDEMA honey Allergy Unknown RAW Verified 02/14/21 20:14 HONEY-THROAT SWELLING, SOB meperidine Allergy Unknown THROAT Verified 02/14/21 20:14 SWELLED, SOB Consultations 02/14/21 20:23 ED Decision to Admit Stat 02/15/21 08:00 Consult Cardiology Routine Hospital Course (1) Seizure-like activity: For the seizure-like activity, no weakness or paresthesia No confusion Appreciate input from neurology, no adjustment of antiseizure medication noted, She had very recent extended time EEG which did not show any evidence of seizure. End of care discussed with patient, agreeable Elevation of troponin: No complaint of chest pain, appreciate cardiology input Per cardiology note: At this point I do not see any cardiac component to the patient's presenting symptoms. She had a minimal troponin elevation upon presentation but she also underwent a dobutamine stress echocardiogram yesterday which easily explains the slight elevation. Stress testing was equivocal with abnormal EKG changes but normal wall motion and in light of her atypical presenting symptoms I do not believe any further cardiac testing or intervention is necessary. Okay to discharge to home from a cardiac standpoint. No medication changes from a cardiac standpoint. Patient is discharged home in stable condition Total Time Total Time Spent Total Time Spent (In Minutes): 30 minutes. Total Time Includes: Discharge Planning and Medication Reconciliation Discharge Plan Discharge Items Patient Disposition: Home - Self-Care Reason For Visit: SEIZURE? Discharge Diagnosis: 1) Seizure-like activity: (2) Acute renal insufficiency-resolved (3) Elevated troponin:-Noncardiac, had recent cardiac stress test (4) History of migraine: (5) COPD with asthma: (6) Generalized anxiety disorder: Activity: Resume your previous activity Non-emergency contact: Primary Care Provider Call non-emergency contact if: you have any medication questions Follow-up/Referrals: Demarcus Tovar DO [Primary Care Provider] - (Date & Time 02/18/2021 11:00 AM Provider Ángel Toro III, MD Department Family Practice [facility] ) Emeli Rodriguez MD [Physician] - (Date & Time 02/17/2021 11:20 AM Provider Emeli Rodriguez MD Department Neurology [facility] ) Diet: Regular Addtl Attending Provider Instructions: Please take all medications as instructed on discharge list below. It is recommended that you follow-up with your primary care physician within 1-2 weeks of hospital discharge to ensure you are still doing well. Please call if you have any questions or problems. You can reach a [facility] hospitalist on duty at [facility] 24 hours a day by calling [phone] Pending Studies at Discharge: No Stand-Alone Forms: My [facility], Smoking Cessation Medications and DC Order Prescriptions: Continued escitalopram oxalate 10 mg tablet 10 mg PO QAM RF: 0 aspirin [Ecotrin Low Strength] 81 mg tablet,delayed release (DR/EC) 81 mg PO QAM RF: 0 cyclobenzaprine 10 mg tablet 10 mg PO HS PRN (Reason: Muscle Spasm) RF: 0 fluticasone propion-salmeterol [Advair Diskus] 250-50 mcg/dose Blister With Device 1 inh INHALATION QAM RF: 0 sennosides [Senna Lax] 8.6 mg Tablet 2 tab PO HS RF: 0 potassium chloride 10 mEq capsule, extended release 10 meq PO BID RF: 0 sumatriptan succinate [Imitrex] 100 mg tablet 100 mg PO DAILY MDD 200 mg PRN (Reason: Migraine Headache) RF: 0 hydrocodone-acetaminophen 5-325 mg tablet 1 tab PO DAILY PRN (Reason: Pain) RF: 0 magnesium citrate Solution 120 ml PO DAILY PRN (Reason: Constipation) RF: 0 polyethylene glycol 3350 17 gram/dose Powder 17 g PO DAILY PRN (Reason: Constipation) RF: 0 zolpidem 10 mg tablet 10 mg PO HS RF: 0 albuterol sulfate 90 mcg/actuation Hfa Aerosol Inhaler 2 puff INHALATION QID PRN (Reason: Wheezing) RF: 0 topiramate [Topamax] 100 mg tablet 150 mg PO QAM RF: 0 bupropion HCl [Wellbutrin SR] 200 mg Tablet Sustained-Release 12 Hr 200 mg PO BID RF: 0 cholecalciferol (vitamin D3) [Vitamin D3] 1,000 unit Tablet 1,000 unit PO HS RF: 0 umeclidinium 62.5 mcg/actuation Blister With Device 1 inh INHALATION QAM RF: 0 riboflavin (vitamin B2) 400 mg Tablet 400 mg PO QAM RF: 0 One-A-Day Women's 50 Plus 400-20 mcg Tablet 1 tab PO HS RF: 0 topiramate [Topamax] 100 mg Tablet 200 mg PO HS RF: 0 omeprazole 40 mg capsule,delayed release(DR/EC) 40 mg PO QAM RF: 0 lorazepam 1 mg tablet 1 mg PO Q6H PRN (Reason: Anxiety) RF: 0 Linzess 290 mcg capsule 290 mcg PO DAILY RF: 0 magnesium oxide 400 mg magnesium Tablet 400 mg PO HS RF: 0 gabapentin 300 mg capsule 600 mg PO HS RF: 0 gabapentin 100 mg Capsule 200 mg PO BID RF: 0 bisacodyl [Gentle Laxative (bisacodyl)] 10 mg suppository 10 mg MA DIRECTED PRN (Reason: constipation) Qty: 12 RF: 0 fluoxetine 40 mg capsule 40 mg PO DAILY RF: 0 Discharge Orders: Discharge Order (Routine); Ordered 02/15/21 Ordered By: Elissa Barrett Admission Data Admit Date/Time: 02/14/21 22:43 Attending Provider: Elissa Barrett Admit Provider: Lalit Weeks Primary Care Provider: Demarcus Tovar Other Providers: Sarmad Urbina Other Interventions: Discharge Summary Assessment (RN) Last Done: 02/15/21 12:34
--- NOTE | 2021-02-15 17:06 | Communication Note ---
Date of Service: February 15, 2021 Code 44 attestation. The chart of the patient, labs and imaging studies reviewed. [place] medically stable to be discharged. She was admitted with seizure-like activity and noted to have slight elevated troponin. She was seen by the shot blast equipment operator and underwent dobutamine stress echo which came out to be unremarkable. She was seen by the attending and felt that she was stable to be discharged. By [facility] guidelines, a determination that the admission or continued stay is not medically necessary has been made by a member of the UR committee and a physician for this hospital stay, therefore a Code 44 will be completed and the Inpatient admission will be changed to outpatient. Dr Montez Hunt Member UR Committee
[2021-02-15] MEDS ORDERED: [UNRECOGNIZED DRUG - OTHER] PO SCH (21:00)
[2021-02-15] MEDS ORDERED: SENNA 8.6 MG TAB PO SCH (21:00)
[2021-02-15] MEDS ORDERED: MAGNESIUM OXIDE 400 MG TAB PO SCH (21:00)
[2021-02-15] MEDS ORDERED: CHOLECALCIFEROL 1,000 UNITS 25 MCG TAB PO SCH (21:00)
--- NOTE | 2021-02-16 12:31 | Electrocardiogram Report ---
Test Reason : Blood Pressure : / mmHG Vent. Rate : 050 BPM Atrial Rate : 050 BPM P-R Int : 166 ms QRS Dur : 078 ms QT Int : 452 ms P-R-T Axes : 047 023 039 degrees QTc Int : 412 ms Sinus bradycardia Otherwise normal ECG When compared with ECG of 06-OCT-2019 11:18, No significant change was found Confirmed by René Stratton ([id number]) on 02/16/2021 12:31:03 PM Referred By: Demarcus Tovar Confirmed By:René Stratton
--- NOTE | 2021-02-17 08:56 | Electrocardiogram Report ---
Test Reason : Blood Pressure : / mmHG Vent. Rate : 053 BPM Atrial Rate : 053 BPM P-R Int : 166 ms QRS Dur : 090 ms QT Int : 478 ms P-R-T Axes : 047 041 040 degrees QTc Int : 448 ms Sinus bradycardia Otherwise normal ECG When compared with ECG of 14-FEB-2021 18:34, (unconfirmed) No significant change was found Confirmed by René Stratton ([id number]) on 02/17/2021 8:55:47 AM Referred By: Demarcus Tovar Confirmed By:René Stratotn
== END 2021-02-15 13:15 | disposition home or self-care (01) ==
LOC: ED 17:56 → SUATTDRO 22:43 → 2E 22:43 → INTOOBSV 22:43 → 2E 23:41